=== PATIENT | female | born 1930 | race Caucasian/White ===

== ENCOUNTER 2017-03-01 07:23 | Observation (INO) | payer MEDICARE, BC ==
[2017-03-01] MEDS ORDERED: Metoclopramide IV* 5 MG/ML 2 ML VIAL IV ONE (07:46)
[2017-03-01] MEDS ORDERED: Morphine INJ* 2 MG/ML 1 ML SYRINGE IV ONE (07:46)
[2017-03-01] MEDS ORDERED: diPHENhydraMINE IV* 50 MG/ML 1 ml VIAL (BENADRYL) IV ONE (07:46)
[2017-03-01 09:00] LABS: Hematocrit 35 % (35-47); Hemoglobin 11.5 g/dl (12.0-16.0); Mean Corpuscular HGB Conc 33 g/dl (31-36); Mean Corpuscular Hemoglobin 31 pg (27-31); Mean Corpuscular Volume 95 fL (80-97); Mean Platelet Volume 8 um3 (7.4-10.4); Red Blood Count 3.68 10^6/ul (4.0-5.4); Red Cell Distribution Width 13 % (10.5-15); White Blood Count 5.2 10^3/ul (3.5-10.8)
[2017-03-01] MEDS ORDERED: Morphine INJ* 4 MG/ML 1 ML SYRINGE IV ONE (09:10)
[2017-03-01 09:16] LABS: Albumin 3.9 g/dL (3.2-5.2); BUN/Creatinine Ratio 18.8 (8-20); Calcium 9.4 mg/dL (8.6-10.3); EGFR African American 87.5 (>60); Globulin 2.8 g/dL (2-4); Potassium 3.7 mmol/L (3.5-5.0); Total Bilirubin 0.5 mg/dL (0.2-1.0); Total Protein 6.7 g/dL (6.4-8.9)
[2017-03-01] MEDS ORDERED: fentaNYL* 50 MCG/ML 2 ML VIAL (100 MCG VIAL) IV SLOW PU ONE (09:52)
[2017-03-01] MEDS ORDERED: predniSONE TAB* 20 MG PO ONE (09:57)
[2017-03-01] MEDS ORDERED: Iodixanol* (CONTRAST) 320 MG/ML 100 ML SDV IV ONE (10:41)
--- NOTE | 2017-03-01 12:16 | RAD ---
INDICATION: 86-year-old with headaches. COMPARISON: CTA head February 28, 2017; CTA head and neck October 06, 2014 TECHNIQUE: Axial source images were acquired with coronal and sagittal reconstructions. CT angiographic technique was utilized with injection of 80 mL Visipaque 320. FINDINGS: Aortic arch: There are moderate arthritic changes of the arch and the great vessels arising from the arch. Similar findings were present previously. Right carotid: The internal carotid artery, carotid bifurcation, extracranial portions of the internal carotid artery are patent. There is mild atherosclerotic change at the bulb similar to that described previously. Left carotid:The internal carotid artery, carotid bifurcation, extracranial portions of the internal carotid artery are patent. There is mild atherosclerotic change of the bulb similar to that described previously. Right vertebral: The right vertebral artery is patent. Left vertebral: The left vertebral artery not patent at its origin and is only faintly visualized at the skull base. Basilar artery: The visualized basilar artery appears normal. Source images show no evidence of mass or adenopathy within the neck. There are no focal parenchymal abnormalities or abnormal areas of enhancement. IMPRESSION: 1. Mild atherosclerotic changes of the aortic bifurcations bilaterally. No evidence of a hemodynamically significant stenosis. 2. The CT is only able to discern flow within the vertebral artery beginning at the skull base. CPT II Codes: 3100F PQRS
[2017-03-01 13:24] LABS: Erythrocyte Sed Rate 18 mm/Hr (0-40)
[2017-03-01 14:08] LABS: Urine Bilirubin Negative (Negative); Urine Glucose Negative (Negative); Urine Nitrite Negative (Negative)
[2017-03-01] MEDS ORDERED: Polyethylene Glycol 3350* 17 GM PACKET PO PRN (14:30)
[2017-03-01] MEDS ORDERED: Acetaminophen TAB* 325 MG PO PRN (14:33)
[2017-03-01] MEDS ORDERED: NS 0.9% 1000 ML* 1,000 ML IV SCH (14:45)
--- NOTE | 2017-03-01 15:26 | RAD ---
Indication: Intermittent headache for 3 days with severe worsening today. Comparison: February 28, 2017 CT angiogram of the head Technique: Blitsya 1.5 Christen [id number] with GEM suite. MRI brain without contrast. Report: Diffusion series is negative for acute or subacute ischemia. Small focus of hemosiderin deposition at the RIGHT superior parietal lobule may reflect previous nonspecific axial hemorrhage or more likely a small cavernous angioma. There is mild prominence of the cerebral sulci and cerebellar fissures reflecting atrophy. Unremarkable ventricles and basal cisterns. There is increased T2 FLAIR signal in the periventricular and subcortical white matter most consistent with chronic small vessel ischemic disease. Normal variant mildly prominent perivascular spaces at the basal ganglia. No intra or extra-axial lesion associated with mass effect evident. Preserved major intracranial flow-voids. Unremarkable orbital contents. No suspicious calvarial or skull base lesion evident. Grossly clear paranasal sinuses. Minimal mastoid effusions. IMPRESSION: 1. Mild involutional change and stigmata of probable chronic small vessel ischemic disease. 2. Small focus of hemosiderin deposition at the RIGHT superior parietal lobule may reflect previous nonspecific axial hemorrhage or more likely a small cavernous angioma. 3. No acute intracranial process evident.
--- NOTE | 2017-03-01 18:08 | ED ---
Jumana Murray Matthew, scribed for Keanu Frankel MD on 03/01/17 at 0806 . Headache - HPI Summary HPI Summary: An 86 y/o female presents to the ED with a frontal headache since 2 days ago. Currently the pain is rated 10/10 in severity. Associated symptoms currently include weakness of the legs bilaterally, fatigue, and photophobia. She denies blurry vision. Two days ago, she woke-up in the middle of the night with a severe headache that lasted for 30 minutes then alleviated. She then woke-up later in the morning, stated that she couldn't feel her legs and fell. As a result, her daughter took her to [facility] in [place], where they did a CT scan yesterday, which returned normal. She also had a moderate constant headache throughout the day yesterday. She was told to present to the ED if she continued to have a headache today. The patient had a CVA (Hemorrhage) in 1995. She takes an aspirin daily and is taking Plavix. She has a Hx of headaches. - History Of Current Complaint Chief Complaint: EDHeadache Stated Complaint: HEADACHE Time Seen by Provider: 03/01/17 07:40 Hx Obtained From: Patient Onset/Duration: Started days ago, Still Present Initially Headache Was: Moderate Currently Pain Is: Current Pain Scale(0-10)= - 10 Timing: Constant Location of Headache: Frontal Aggravating Factor: Bright Lights Allevating Factors: Nothing Associated Signs And Symptoms: Other (Noted In Comments) - photophobia, fatigue , bilateral leg weakness - Allergies/Home Medications Allergies/Adverse Reactions: Allergies Allergy/AdvReac Type Severity Reaction Status Date / Time Morphine Allergy GI Upset Verified 03/04/13 22:20 Warfarin [From Coumadin] Allergy Unknown Verified 10/06/14 13:49 Reaction Details Home Medications: Home Medications Acetaminophen [Acetaminophen ER] 1,300 mg PO BID PRN 03/01/17 [History Confirmed 03/01/17] Cholecalciferol [Vitamin D] 1,000 unit PO DAILY 03/01/17 [History Confirmed ] Ipratropium Eden (Nasal) [Ipratropium Eden] 0.06 % BOTH NARES TID PRN [History Confirmed 03/01/17] Isosorbide Mononitrate ER TAB* [Imdur ER TAB*] 30 mg PO BEDTIME 03/01/17 [ History Confirmed 03/01/17] Magnesium Oxide [Magnesium] 500 mg PO DAILY 03/01/17 [History Confirmed 03/01/17 ] Metoprolol Succinate XL TAB* [Toprol XL TAB*] 25 mg PO DAILY 03/01/17 [History Confirmed 03/01/17] Multiple Vitamins W/ Minerals [Eye Vitamins & Minerals] 1 tab PO BID 03/01/17 [ History Confirmed 03/01/17] amLODIPine TAB* [Norvasc 5 mg TAB*] 2.5 mg PO QPM 03/01/17 [History Confirmed ] PMH/Surg Hx/FS Hx/Imm Hx Endocrine/Hematology History: Reports: Hx Thyroid Disease Denies: Hx Diabetes Cardiovascular History: Reports: Hx Angina, Hx Coronary Artery Disease, Hx Hypercholesterolemia, Hx Hypertension, Hx Myocardial Infarction - DE x2 1995 Denies: Hx Congestive Heart Failure, Hx Valvular Heart Disease Comment Only: Other Cardiovascular Problems/Disorders - 2 stents Respiratory History: Reports: Other Respiratory Problems/Disorders - seasonal ALLERGIES, MED'S MADE HER DIZZY SO SHE DOESNT TAKE THEM Denies: Hx Asthma, Hx Chronic Obstructive Pulmonary Disease (COPD) GI History: Reports: Hx Gastroesophageal Reflux Disease, Hx Obstructive Bowel - with colon resection History: Denies: Hx Renal Disease Musculoskeletal History: Reports: Hx Arthritis, Other Musculoskeletal History - Bilat hip replacement Sensory History: Reports: Hx Contacts or Glasses, Hx Hearing Problem - left hearing aids at home Opthamlomology History: Reports: Hx Contacts or Glasses Psychiatric History: Reports: Hx Anxiety, Hx Depression - Cancer History Hx Chemotherapy: No Hx Radiation Therapy: No - Surgical History Surgery Procedure, Year, and Place: CARDIAC CATH WITH STENTS, BILATERAL HIP REPLACEMENT, colon resection Hx Anesthesia Reactions: No - Immunization History Date of Tetanus Vaccine: up to date Date of Influenza Vaccine: 2014 Infectious Disease History: No Infectious Disease History: Denies: Traveled Outside the [place] in Last 30 Days - Family History Known Family History: Positive: Cardiac Disease Family History: FHx of breast CA - Social History Alcohol Use: Rare Substance Use Type: Reports: None Hx Tobacco Use: Yes - QUIT 1995 Smoking Status (MU): Former Smoker Type: Cigarettes Have You Smoked in the Last Year: No Review of Systems Positive: Fatigue Positive: Photophobia. Negative: Blurred Vision ENT: Negative Cardiovascular: Negative Respiratory: Negative Gastrointestinal: Negative Genitourinary: Negative Musculoskeletal: Negative Skin: Negative Positive: Weakness - legs bilaterally Psychological: Normal All Other Systems Reviewed And Are Negative: Yes Physical Exam - Summary Physical Exam Summary: VITAL SIGNS: Reviewed. GENERAL: Patient is a well developed and nourished female who is lying comfortable in the stretcher. Patient is not in any acute respiratory distress. HEAD AND FACE: No signs of trauma. No ecchymosis, hematomas or skull depressions. No sinus tenderness. Positive tenderness in the left side of the tmeporal area. EYES: PERRLA, EOMI x 2, No injected conjunctiva, no nystagmus. No photophobia. EARS: Hearing grossly intact. Ear canals and tympanic membranes are within normal limits. MOUTH: Oropharynx within normal limits. NECK: Supple, trachea is midline, no adenopathy, no JVD, no carotid bruit, no c- spine tenderness, neck with full ROM. No meningeal signs, no Kernig's or brudzinskis signs. CHEST: Symmetric, no tenderness at palpation LUNGS: Clear to auscultation bilaterally. No wheezing or crackles. CVS: Regular rate and rhythm, S1 and S2 present, no murmurs or gallops appreciated. ABDOMEN: Soft, non-tender. No signs of distention. No rebound no guarding, and no masses palpated. Bowel sounds are normal. EXTREMITIES: FROM in all major joints, no edema, no cyanosis or clubbing. NEURO: Alert and oriented x 3. No acute neurological deficits. Speech is normal and follows commands. SKIN: Dry and warm Triage Information Reviewed: Yes Vital Signs On Initial Exam: Initial Vitals Temp Pulse Resp BP Pulse Ox 97.0 F 60 14 163/69 96 03/01/17 07:30 03/01/17 07:30 03/01/17 07:30 03/01/17 07:30 03/01/17 07:30 Vital Signs Reviewed: Yes - Chana Coma Scale Coma Scale Total: 15 Diagnostics - Vital Signs Vital Signs Temp Pulse Resp BP Pulse Ox 03/01/17 07:30 97.0 F 58 17 163/69 96 - Laboratory Lab Results: Lab Results 03/01/17 03/01/17 03/01/17 Range/Units 08:50 08:50 08:50 WBC 5.2 (3.5-10.8) 10^3/ul RBC 3.68 L (4.0-5.4) 10^6/ul Hgb 11.5 L (12.0-16.0) g/dl Hct 35 (35-47) % MCV 95 (80-97) fL MCH 31 (27-31) pg MCHC 33 (31-36) g/dl RDW 13 (10.5-15) % Plt Count 209 (150-450) 10^3/ul MPV 8 (7.4-10.4) um3 Neut % (Auto) 69.5 (38-83) % Lymph % (Auto) 18.0 L (25-47) % Hartley % (Auto) 8.6 (1-9) % Eos % (Auto) 1.1 (0-6) % Baso % (Auto) 2.8 H (0-2) % Absolute Neuts (auto) 3.6 (1.5-7.7) 10^3/ul Absolute Lymphs (auto) 0.9 L (1.0-4.8) 10^3/ul Absolute Monos (auto) 0.4 (0-0.8) 10^3/ul Absolute Eos (auto) 0.1 (0-0.6) 10^3/ul Absolute Basos (auto) 0.1 (0-0.2) 10^3/ul Absolute Nucleated RBC 0 10^3/ul Nucleated RBC % 0.1 ESR Pending APTT 24.1 L (26.0-36.3) seconds Carbon Monoxide Screen (<3.5) % Sodium 132 L (133-145) mmol/L Potassium 3.7 (3.5-5.0) mmol/L Chloride 100 L (101-111) mmol/L Carbon Dioxide 26 (22-32) mmol/L Anion Gap 6 (2-11) mmol/L BUN 15 (6-24) mg/dL Creatinine 0.80 (0.51-0.95) mg/dL Est GFR ( Amer) 87.5 (>60) Est GFR (Non-Af Amer) 68.0 (>60) BUN/Creatinine Ratio 18.8 (8-20) Glucose 118 H (70-100) mg/dL Lactic Acid (0.5-2.0) mmol/L Calcium 9.4 (8.6-10.3) mg/dL Total Bilirubin 0.50 (0.2-1.0) mg/dL AST 15 (13-39) U/L ALT 8 (7-52) U/L Alkaline Phosphatase 46 (34-104) U/L B-Natriuretic Peptide ( - 100) pg/mL Total Protein 6.7 (6.4-8.9) g/dL Albumin 3.9 (3.2-5.2) g/dL Globulin 2.8 (2-4) g/dL Albumin/Globulin Ratio 1.4 (1-3) 03/01/17 03/01/17 03/01/17 Range/Units 08:50 08:50 08:50 WBC (3.5-10.8) 10^3/ul RBC (4.0-5.4) 10^6/ul Hgb (12.0-16.0) g/dl Hct (35-47) % MCV (80-97) fL MCH (27-31) pg MCHC (31-36) g/dl RDW (10.5-15) % Plt Count (150-450) 10^3/ul MPV (7.4-10.4) um3 Neut % (Auto) (38-83) % Lymph % (Auto) (25-47) % Hartley % (Auto) (1-9) % Eos % (Auto) (0-6) % Baso % (Auto) (0-2) % Absolute Neuts (auto) (1.5-7.7) 10^3/ul Absolute Lymphs (auto) (1.0-4.8) 10^3/ul Absolute Monos (auto) (0-0.8) 10^3/ul Absolute Eos (auto) (0-0.6) 10^3/ul Absolute Basos (auto) (0-0.2) 10^3/ul Absolute Nucleated RBC 10^3/ul Nucleated RBC % ESR APTT (26.0-36.3) seconds Carbon Monoxide Screen <3.5 (<3.5) % Sodium (133-145) mmol/L Potassium (3.5-5.0) mmol/L Chloride (101-111) mmol/L Carbon Dioxide (22-32) mmol/L Anion Gap (2-11) mmol/L BUN (6-24) mg/dL Creatinine (0.51-0.95) mg/dL Est GFR ( Amer) (>60) Est GFR (Non-Af Amer) (>60) BUN/Creatinine Ratio (8-20) Glucose (70-100) mg/dL Lactic Acid 1.2 (0.5-2.0) mmol/L Calcium (8.6-10.3) mg/dL Total Bilirubin (0.2-1.0) mg/dL AST (13-39) U/L ALT (7-52) U/L Alkaline Phosphatase (34-104) U/L B-Natriuretic Peptide 141 H ( - 100) pg/mL Total Protein (6.4-8.9) g/dL Albumin (3.2-5.2) g/dL Globulin (2-4) g/dL Albumin/Globulin Ratio (1-3) Result Diagrams: 03/01/17 08:50 03/01/17 08:50 Lab Statement: Any lab studies that have been ordered have been reviewed, and results considered in the medical decision making process. - CT CTA Neck CT Interpretation: No Acute Changes - 1. Mild atherosclerotic changes of the aortic bifurcations bilaterally. No evidence of a hemodynamically significant stenosis. 2. The CT is only able to discern flow within the vertebral artery beginning at the skull base. CT Interpretation Completed By: Radiologist - EKG 07:31 Cardiac Rate: NL - 60 bpm EKG Rhythm: Sinus Rhythm EKG Interpretation: No ST elevation Headache Course/Dx - Course Assessment/Plan: An 86 y/o female presents to the ED with a frontal headache since 2 days ago. Currently the pain is rated 10/10 in severity. Associated symptoms currently include weakness of the legs bilaterally, fatigue, and photophobia. She denies blurry vision. Two days ago, she woke-up in the middle of the night with a severe headache that lasted for 30 minutes then alleviated. She then woke-up later in the morning, stated that she couldn't feel her legs and fell. As a result, her daughter took her to [facility] in [place], where they did a CT scan yesterday, which returned normal. She also had a moderate constant headache throughout the day yesterday. She was told to present to the ED if she continued to have a headache today. The patient had a CVA (Hemorrhage) in 1995. She takes an aspirin daily and is taking Plavix. She has a Hx of headaches. Blood work shows decreased in H&H which is 11.5. Sodium of 132, glucose 118, and urinalysis negative for UTI. In the ED course, the patient was given IV fluids, Benadryl, and Reglan for the headache and nausea. The patient had a CTA of the brain yesterday order by the PCP, which showed no acute abnormalities. At this point, I discussed my findings with Dr. Mendoza who recommend a CTA of the neck. CTA neck shows mild atherosclerotic changes of the aortic bifurcations bilaterally. No evidence of a hemodynamically significant stenosis. 2. The CT is only able to discern flow within the vertebral artery beginning at the skull base. While the patient was waiting for these tests to be completed, the patient called me back into the room and stated that she had an episode of facial droop and confusion this morning. It was witnessed by the daughter and lasted for approximately an hour. Therefore, Dr. Mendoza requested to do an MRI of the brain and he will follow-up with the results. I discussed the case with Dr. Mendoza who recommended a Brain MRI to r/ o TIA. The patients headache has improved and right now is 4/10. I have no suspicion for meningitis, because the patient does not have fever, neck pain, or photophobia. I also have low suspicion subarachnoid hemorrhage since the patients CTA yesterday was negative. Discussed the case with Dr. Guzman who accepted the patient for admission. The patient is hemodynamically stable and A& Ox3. - Diagnoses Differential Diagnosis/HQI/PQRI: CVA, TIA, Subdural Hematoma, Migraine, Sinus Headache, Subarachnoid Hemorrhage, Temporal Arteritis, Viral Syndrome Provider Diagnoses: Headache, TIA (transient ischemic attack) - Physician Notifications Discussed Care Of Patient With: Dr. Jackson (Neurology) at 10:09 -- Notified of patient's history and he recommends CTA of the neck. Dr. Guzman (Hospitalist) at 12:22 -- Notified of patient's history and will admit the patient. Discharge - Discharge Plan Condition: Stable Disposition: ADMITTED TO [facility] documentation as recorded by the Jumana harmon Matthew accurately reflects the service I personally performed and the decisions made by me, Keanu Frankel MD.
--- NOTE | 2017-03-01 20:39 | HP ---
HISTORY AND PHYSICAL: DATE OF ADMISSION: 03/01/17 PRIMARY CARE PROVIDER: Dr. Sofy Mejía. ATTENDING PHYSICIAN: Dr. Dmitriy Guzman * (dictated by Roberta Noble NP). CHIEF COMPLAINT: Severe left-sided headache with associated nausea, weakness, and dizziness. HISTORY OF PRESENT ILLNESS: Ms. 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 The patient states that she developed a headache 2 days ago that was frontal on both sides in nature. She was seen at her primary care office and was ordered a head CTA yesterday. It showed no evidence for an acute intracranial abnormality. There were atrophy and findings most consistent with moderate chronic small vessel ischemic changes and no evidence of an aneurysm. The patient states that the headache had improved and she was at home. It is also to note that the patient reports 2 nights ago, when she got up, she was not feeling well. When she went to sit back down on her bed, she slid to the floor. She denied hitting her head at that time. The patient states that her headache had initially resolved yesterday, but then when she woke up again this morning, she had a headache that was worse. She was able to get to the bathroom and sit on the toilet when she just felt that the headache was excruciating and she noticed that she was weak, nauseous, and dizzy, and she pressed her Life Alert and EMS presented to her house to bring her here. According to the patient's family, she may have had a slight left facial droop. The patient states that she may have had weakness greater on the left than on the right also. The patient was given nitroglycerin by EMS and this helped her hypertensive blood pressure come down, in addition to helped her headache improve. While in the emergency room, the patient's blood pressures improved from the 160s to 180s systolic to the 130s. She received fentanyl for her headache in addition to prednisone, Benadryl, and Reglan. The patient also had an EKG showing normal sinus rhythm with a rate of 60. She had a urinalysis that was within normal limits. She had labs that were significant for slight hyponatremia with a sodium of 132. The patient had a carbon monoxide screening that was less than 3.5. She also underwent neck CTA showing mild atherosclerotic changes of the aortic bifurcation bilaterally, but no evidence of hemodynamically significant stenosis. The patient states that her headache has mostly resolved during her time in the emergency room. Hospitalists were asked to evaluate the patient for admission. The patient denies fever, chills, chest pain, shortness of breath. She does report a cough with some phlegm, but has had issues with phlegm production since she was intubated during her hemorrhagic stroke. She also reports some blurry vision in her left eye. She denies any urinary symptoms. PAST MEDICAL HISTORY: 1. Hypertension. 2. Hyperlipidemia. 3. Coronary artery disease. 4. Myocardial infarction x2. 5. Hypothyroidism. 6. Depression. 7. GERD. 8. Arthritis. 9. Hemorrhagic cerebrovascular accident in 1995 while on warfarin. PAST SURGICAL HISTORY: 1. Status post cardiac catheterization with 2 stent placements. 2. Status post bilateral total hip arthroplasties. 3. Status post partial bowel resection. 4. Status post cataract extraction. HOME MEDICATIONS: Include: 1. Sertraline 50 mg oral daily. 2. MiraLAX 17 g oral daily as needed for constipation. 3. Omeprazole 20 mg oral daily. 4. Aspirin 81 mg oral daily. 5. Fish oil 1000 mg oral daily. 6. Metoprolol succinate 25 mg oral daily. 7. Levothyroxine 75 mcg oral daily. 8. Plavix 75 mg oral daily. 9. Nitroglycerin 0.4 mg sublingual every 5 minutes as needed for angina. 10. Vitamin D 1000 units oral daily. 11. Atorvastatin 10 mg oral daily. 12. Magnesium 500 mg oral daily. 13. Vitamin B12 injection 1000 mcg intramuscular monthly. 14. Acetaminophen 1300 mg oral twice daily as needed for pain. 15. Isosorbide mononitrate ER 30 mg oral daily at bedtime. 16. Ipratropium bromide 0.06% to both nares 3 times daily as needed for congestion. 17. Amlodipine 2.5 mg oral every evening. 18. Multivitamin 1 tablet oral daily. ALLERGIES: MORPHINE and WARFARIN. FAMILY HISTORY: The patient's parents, brother, and son have a history of heart disease. She denies any family history of diabetes mellitus. The patient 's father had a history of bone cancer and she had a sister and a niece with a history of breast cancer. SOCIAL HISTORY: The patient is a former smoker. She quit smoking in 1995. Prior to that, she smoked 1 pack a day for 30 to 40 years. The patient occasionally drinks alcoholic beverages. She denies recreational drug use. The patient's son and [id number], Gil and Jyothi Amin, will be her surrogate decision makers in the event she is unable to make decisions for herself. REVIEW OF SYSTEMS: I performed a 14-point review of systems. All the pertinent positives and negatives are mentioned in the history of present illness. The remaining review of systems is negative. PHYSICAL EXAMINATION GENERAL APPEARANCE: The patient is alert, pleasant, appears to be in no acute distress. VITAL SIGNS: Temperature 97.0, heart rate 58, respiratory rate 18, O2 sat 99% on room air, blood pressure 130/63. HEENT: Normocephalic, atraumatic. Pupils are equal and reactive to light. Extraocular movements intact. RESPIRATORY: There is no accessory muscle use and the lungs are clear to auscultation bilaterally. CARDIOVASCULAR: Regular rate and rhythm. S1, S2 present. There are no murmurs , rubs, or gallops heard. ABDOMEN: Soft, nontender, nondistended. Bowel sounds x4. EXTREMITIES: There is no lower extremity edema. DP and PT pulses are 2+ and symmetric. MUSCULOSKELETAL: There is no clubbing or cyanosis noted. The patient exhibits good strength in all extremities. NEUROLOGICAL: The patient is alert and oriented x4. Cranial nerves II through XII are grossly intact. The patient is able to perform [id number] bilaterally without difficulty. She is able to perform heel from ankle to knee bilaterally without difficulty. The patient's smile was symmetric. Her tongue is midline. She has a slight deepening in the crease on the left side of her face when compared to the right side. Per the patient's family, this may be her baseline. PSYCHOLOGICAL: The patient is calm and cooperative. SKIN: There are no rashes or abnormalities seen. DIAGNOSTIC STUDIES/LAB DATA: Sodium 132, potassium 3.7, chloride 100, CO2 26, BUN 15, creatinine 0.80, glucose 118. White blood cell count 5.2, hemoglobin 11.5, hematocrit 35, and platelet count 209. Urinalysis negative. Carbon monoxide screening less than 3.5. BNP 141. EKG shows normal sinus rhythm with a rate of 60. Neck CTA from today. Radiologist's impression: Mild atherosclerotic changes of the aortic bifurcation bilateral. No evidence of a hemodynamically significant stenosis. The CT is only able to discern flow within the vertebral artery beginning at the skull base. IMPRESSION: Ms. Amin is an 86-year-old female with past medical history significant for hypertension, hyperlipidemia, coronary artery disease, and history of hemorrhagic cerebrovascular accident, who presents to the emergency room with concerns of severe headache with associated nausea, weakness, and dizziness. She will be admitted under observation for headache and rule out transient ischemic attack. ASSESSMENT AND PLAN: 1. Headache with associated weakness, dizziness, and nausea: Per the patient' s family, she may have also had a slight left facial droop. There was no focal weakness noted. The patient will have an MRI. After the MRI, I will touch base with Neurology for a consultation. We will check fasting lipids in the morning. The patient will have neurological checks every 4 hours. We will add a hemoglobin A1c to her labs. We will have Physical Therapy evaluate her due to her complaints of generalized weakness. For now, we will hold her amlodipine to allow permissive hypertension. 2. History of coronary artery disease: The patient will be continued on her home aspirin, beta radha, statin, and Imdur. 3. History of cerebrovascular accident: The patient will be continued on her Plavix, aspirin, and statin. 4. Hyponatremia: We will give the patient some gentle IV hydration overnight and recheck in the morning. 5. Hypothyroidism: The patient will be continued on her home levothyroxine. 6. Depression: The patient will be continued on her home sertraline. 7. Hypertension: For now, the patient will be continued on her beta radha, we will hold her amlodipine to allow for permissive hypertension. 8. Hyperlipidemia: The patient will be continued on her statin. We will check fasting lipids in the morning. 9. Gastroesophageal reflux disease: The patient will be continued on her home omeprazole. 10. Arthritis: The patient will be continued on atenolol as needed. 11. Fluids, electrolytes, and nutrition: The patient will be on heart-healthy diet. 12. Code status: Do not resuscitate. 13. DVT prophylaxis: The patient is high risk and will be on subcu heparin. 14. Disposition: Observation for headache, rule out transient ischemic attack. TIME SPENT: Time for this admission was 60 minutes and 35 minutes was spent face- to-face with the patient and family discussing medications, past medical history, and the events leading up to her arrival today and performing a physical examination. The case has been reviewed with the attending, Dr. Gzuman, who agrees with the plan of care. Reviewed by MYESHA DAVIS 03/04/17 1605 CC: Dr. Sofy Mejía * [id number]/[facility] #: [id number] MTDGeorge
[2017-03-01] MEDS ORDERED: Isosorbide Mononitrate ER TAB* 30 MG PO SCH (21:00)
[2017-03-01] MEDS: Heparin VIAL(*) 5000 UNITS/ML VIAL (FIVE THOUSAND) SUBCUT SCH (21:13)
[2017-03-02 05:12] LABS: BUN/Creatinine Ratio 21.8 (8-20); Calcium 8.6 mg/dL (8.6-10.3); EGFR African American 90.1 (>60); HDL Cholesterol 45.3 mg/dL; Potassium 4.5 mmol/L (3.5-5.0)
[2017-03-02] MEDS: Heparin VIAL(*) 5000 UNITS/ML VIAL (FIVE THOUSAND) SUBCUT SCH ×2 (05:36→13:14)
[2017-03-02] MEDS ORDERED: Levothyroxine TAB* 75 MCG TAB PO SCH (06:00)
[2017-03-02] MEDS ORDERED: Atorvastatin* 10 MG TAB PO SCH (09:00)
[2017-03-02] MEDS ORDERED: Aspirin EC Low Dose* 81 MG TAB.EC PO SCH (09:00)
[2017-03-02] MEDS ORDERED: Sertraline* 50 MG TAB PO SCH (09:00)
[2017-03-02] MEDS ORDERED: Clopidogrel TAB* 75 MG PO SCH (09:00)
[2017-03-02] MEDS ORDERED: CMCS:Pantoprazole TAB (NF) 40 MG TAB PO SCH (09:00)
[2017-03-02] MEDS ORDERED: Metoprolol Succinate XL TAB* 25 MG PO SCH (09:00)
[2017-03-02 12:47] VITALS: BP 114/45
--- NOTE | 2017-03-02 14:09 | PN ---
Subjective Date of Service: 03/02/17 Interval History: Ms. Amin states that she is feeling much better today. She had no headache overnight. She denies weakness, chest pain, SOB, nausea, or abdominal pain. Objective Active Medications: Acetaminophen (Tylenol Tab*) 650 mg PO Q4H PRN Aspirin (Aspirin Ec Low Dose*) 81 mg PO DAILY [facility] Atorvastatin Calcium (Lipitor*) 10 mg PO DAILY [facility] Clopidogrel Bisulfate (Plavix Tab*) 75 mg PO DAILY [facility] Heparin Sodium (Porcine) (Heparin Vial(*)) 5,000 units SUBCUT Q8HR [facility] Isosorbide Mononitrate (Imdur Er Tab*) 30 mg PO BEDTIME [facility] Levothyroxine Sodium (Synthroid Tab*) 75 mcg PO 0600 [facility] Metoprolol Succinate (Toprol Xl Tab*) 25 mg PO DAILY [facility] Pantoprazole Sodium (Protonix Tab (Nf)) 40 mg PO DAILY [facility] Polyethylene Glycol/Electrolytes (Miralax*) 17 gm PO DAILY PRN Sertraline HCl (Zoloft*) 50 mg PO DAILY [facility] Vital Signs 03/01/17 03/01/17 03/01/17 16:35 19:38 20:00 Temperature 98.5 F 98.7 F Pulse Rate 58 70 Respiratory 18 20 20 Rate Blood Pressure 139/53 116/56 (mmHg) O2 Sat by Pulse 97 94 Oximetry 03/01/17 03/02/17 03/02/17 23:53 04:01 07:50 Temperature 98.9 F 97.7 F 97.9 F Pulse Rate 68 70 94 Respiratory 16 16 16 Rate Blood Pressure 121/56 170/79 129/69 (mmHg) O2 Sat by Pulse 93 90 97 Oximetry 03/02/17 11:26 Temperature 98.5 F Pulse Rate 68 Respiratory 16 Rate Blood Pressure 114/45 (mmHg) O2 Sat by Pulse 94 Oximetry Oxygen Devices in Use Now: None Appearance: Elderly female lying in bed in NAD Eyes: No Scleral Icterus Ears/Nose/Mouth/Throat: Mucous Membranes Moist Respiratory: Symmetrical Chest Expansion and Respiratory Effort, Clear to Auscultation Cardiovascular: NL Sounds; No Murmurs; No JVD, No Edema Abdominal: NL Sounds; No Tenderness; No Distention Extremities: No Edema Skin: No Rash or Ulcers Neurological: Alert and Oriented x 3, NL Muscle Strength and Tone Nutrition: Taking PO's Result Diagrams: 03/01/17 08:50 03/02/17 04:36 Additional Lab and Data: Lab Results 03/01/17 03/01/17 03/01/17 Range/Units 08:50 08:50 08:50 WBC 5.2 (3.5-10.8) 10^3/ul RBC 3.68 L (4.0-5.4) 10^6/ul Hgb 11.5 L (12.0-16.0) g/dl Hct 35 (35-47) % MCV 95 (80-97) fL MCH 31 (27-31) pg MCHC 33 (31-36) g/dl RDW 13 (10.5-15) % Plt Count 209 (150-450) 10^3/ul MPV 8 (7.4-10.4) um3 Neut % (Auto) 69.5 (38-83) % Lymph % (Auto) 18.0 L (25-47) % [place] % (Auto) 8.6 (1-9) % Eos % (Auto) 1.1 (0-6) % Baso % (Auto) 2.8 H (0-2) % Absolute Neuts (auto) 3.6 (1.5-7.7) 10^3/ul Absolute Lymphs (auto) 0.9 L (1.0-4.8) 10^3/ul Absolute Monos (auto) 0.4 (0-0.8) 10^3/ul Absolute Eos (auto) 0.1 (0-0.6) 10^3/ul Absolute Basos (auto) 0.1 (0-0.2) 10^3/ul Absolute Nucleated RBC 0 10^3/ul Nucleated RBC % 0.1 ESR Pending APTT 24.1 L (26.0-36.3) seconds Carbon Monoxide Screen (<3.5) % Sodium 132 L (133-145) mmol/L Potassium 3.7 (3.5-5.0) mmol/L Chloride 100 L (101-111) mmol/L Carbon Dioxide 26 (22-32) mmol/L Anion Gap 6 (2-11) mmol/L BUN 15 (6-24) mg/dL Creatinine 0.80 (0.51-0.95) mg/dL Est GFR ( Amer) 87.5 (>60) Est GFR (Non-Af Amer) 68.0 (>60) BUN/Creatinine Ratio 18.8 (8-20) Glucose 118 H (70-100) mg/dL Lactic Acid (0.5-2.0) mmol/L Calcium 9.4 (8.6-10.3) mg/dL Total Bilirubin 0.50 (0.2-1.0) mg/dL AST 15 (13-39) U/L ALT 8 (7-52) U/L Alkaline Phosphatase 46 (34-104) U/L B-Natriuretic Peptide ( - 100) pg/mL Total Protein 6.7 (6.4-8.9) g/dL Albumin 3.9 (3.2-5.2) g/dL Globulin 2.8 (2-4) g/dL Albumin/Globulin Ratio 1.4 (1-3) 03/01/17 03/01/17 03/01/17 Range/Units 08:50 08:50 08:50 WBC (3.5-10.8) 10^3/ul RBC (4.0-5.4) 10^6/ul Hgb (12.0-16.0) g/dl Hct (35-47) % MCV (80-97) fL MCH (27-31) pg MCHC (31-36) g/dl RDW (10.5-15) % Plt Count (150-450) 10^3/ul MPV (7.4-10.4) um3 Neut % (Auto) (38-83) % Lymph % (Auto) (25-47) % [place] % (Auto) (1-9) % Eos % (Auto) (0-6) % Baso % (Auto) (0-2) % Absolute Neuts (auto) (1.5-7.7) 10^3/ul Absolute Lymphs (auto) (1.0-4.8) 10^3/ul Absolute Monos (auto) (0-0.8) 10^3/ul Absolute Eos (auto) (0-0.6) 10^3/ul Absolute Basos (auto) (0-0.2) 10^3/ul Absolute Nucleated RBC 10^3/ul Nucleated RBC % ESR APTT (26.0-36.3) seconds Carbon Monoxide Screen <3.5 (<3.5) % Sodium (133-145) mmol/L Potassium (3.5-5.0) mmol/L Chloride (101-111) mmol/L Carbon Dioxide (22-32) mmol/L Anion Gap (2-11) mmol/L BUN (6-24) mg/dL Creatinine (0.51-0.95) mg/dL Est GFR ( Amer) (>60) Est GFR (Non-Af Amer) (>60) BUN/Creatinine Ratio (8-20) Glucose (70-100) mg/dL Lactic Acid 1.2 (0.5-2.0) mmol/L Calcium (8.6-10.3) mg/dL Total Bilirubin (0.2-1.0) mg/dL AST (13-39) U/L ALT (7-52) U/L Alkaline Phosphatase (34-104) U/L B-Natriuretic Peptide 141 H ( - 100) pg/mL Total Protein (6.4-8.9) g/dL Albumin (3.2-5.2) g/dL Globulin (2-4) g/dL Albumin/Globulin Ratio (1-3) Assess/Plan/Problems-Billing Assessment: Ms. Amin is an 86 yo female with a PMH of hemorrhagic CVA, HTN, NV who was admitted on 03/01/17 with concern for new onset headache associated with weakness with concern for TIA vs CVA. - Patient Problems (1) Headache Comment: No headache overnight. No further weakness or question of neurological deficit. Patient's workup has been negative including a CT brain, CTA neck, and MRI brain. ESR is also negative which would speak against temporal arteritis. No etiology identified. Case reviewed with neurology over the phone, no further workup recommended. Of note, patient's BP was elevated with EMS to 200 systolically per patient report. ? if hypertension could be causing headache. However, her BP has been well controlled inpatient. Encouraged patient to check BP at home and review findings with Dr. Mejía. (2) CAD (coronary artery disease) Comment: Continue atorvastatin, aspirin, plavix. Continue isosorbide. (3) Depression Comment: Continue zoloft. (4) Hypertension Comment: BP well controlled. Continue amlodipine and metoprolol. (5) Hypothyroidism Comment: Continue levothyroxine. (6) DVT prophylaxis Comment: Heparin SQ. (7) DNR (do not resuscitate) Status and Disposition: OBV. Discharge to home.
--- NOTE | 2017-03-03 03:51 | DS ---
DISCHARGE SUMMARY: DATE OF ADMISSION: 03/01/17 DATE OF DISCHARGE: 03/02/17 PRIMARY CARE PHYSICIAN: Dr. Mejía. ATTENDING PHYSICIAN: Husam Weinstein MD* (dictation provided by Tiffanie Li NP ). PRIMARY DIAGNOSIS: Headache with associated nausea, weakness, and dizziness. SECONDARY DIAGNOSES: 1. Hypertension. 2. Hyperlipidemia. 3. Coronary artery disease. 4. Myocardial infarction x2. 5. Hypothyroidism. 6. Depression. 7. Gastroesophageal reflux disease. 8. Arthritis. 9. Hemorrhagic cerebrovascular accident in 1995 while on warfarin. PAST SURGICAL HISTORY: 1. Status post cardiac catheterization with 2 stent placements. 2. Status post bilateral total hip arthroplasties. 3. Status post partial bowel resection. 4. Status post cataract extraction. MEDICATIONS AT THE TIME OF DISCHARGE: Unchanged. They are: 1. Sertraline 50 mg oral daily. 2. MiraLAX 17 g oral daily as needed for constipation. 3. Omeprazole 20 mg oral daily. 4. Aspirin 81 mg oral daily. 5. Fish oil 1000 mg oral daily. 6. Metoprolol succinate 25 mg oral daily. 7. Levothyroxine 75 mcg oral daily. 8. Plavix 75 mg oral daily. 9. Nitroglycerin 0.4 mg sublingually q.5 minutes p.r.n. 10. Vitamin D 1000 units oral daily. 11. Atorvastatin 10 mg oral daily. 12. Magnesium 500 mg oral daily. 13. Vitamin B12 injections 1000 mcg intramuscularly monthly. 14. Tylenol 1300 mg oral twice daily as needed for pain. 15. Isosorbide mononitrate ER 30 mg oral daily at bedtime. 16. Ipratropium as needed for congestion. 17. Amlodipine 2.5 mg oral every evening. 18. Multivitamin 1 tablet oral daily. HOSPITAL COURSE: Ms. Amin is an 86-year-old female with the past medical history as outlined above who presented to the emergency room on 03/01/17 with concern for headache associated with nausea, weakness, and dizziness. Please see the dictated H and P from Roberta Norwood, for complete details. In brief, the patient had 2 episodes where she had awoken in the middle of the night with headache. During the first episode, she felt that both of her legs were paralysed and she was unable to move. Overall, she appears that she was completely incapacitated by the severity of the pain. This lasted for approximately a few hours. The following day she went to see her primary care physician, Dr. Mejía, and a CT of the brain was performed given her history of hemorrhagic CVA. No abnormality was noted on the CT of brain. The following night, early in the morning hours, she had another headache that was very severe. Again, she did not have the bilateral lower extremity weakness, but her family was concerned that perhaps she had some left- sided facial droop. When the EMS arrived, they did not note any facial droop. The patient herself did not note it herself, but based on her presentation with headache and question of associated neurological deficits she was admitted to the hospital for observation. During the hospitalization, Ms. Amin with head and neck CTA which was read as follows: "Mild atherosclerotic change of the aortic bifurcations bilaterally. No evidence of hemodynamically significant stenosis." The patient had a brain MRI which is read as follows: "Mild involutional change and stigmata of probable chronic small vessel ischemic disease. Small focus of hemosiderin deposition at the right superior parietal lobe may reflect previous nonspecific axial hemorrhage or more likely a small cavernous angioma. No acute intracranial process evident." The patient's laboratory values were unremarkable. Her ESR was only 18. Her cholesterol screen showed a total cholesterol of 137 and HDL 45.3. She has no evidence of a urinary tract infection. Her vital signs had been stable. There is no clear etiology identified for Ms. Amin's headache and question of possibly associated neurological symptoms. She has no evidence of TIA or CVA on the workup here. No evidence of temporal arteritis. The patient notes that her blood pressure was elevated to over 200 systolically via EMS. While she has been here in the hospital, her blood pressure has only been high a couple of times and this was not associated with any symptoms or headache. It is possible that her symptoms are related to high blood pressure or her blood pressure could have been high simply due to stress and pain. I have encouraged her to check her blood pressure at home. The patient does have a blood pressure cuff in the home. She should follow up with Dr. Mejía with these results to determine if her blood pressure medication should be adjusted. Based on the values here in the hospital, her blood pressure is well controlled. Ms. Amin is medically stable for discharge to home. She had no headache overnight while here with us and no neurological deficits. She should follow up with Dr. Mejía. DISPOSITION: Home. DIET: Low salt. ACTIVITY: As tolerated. FOLLOWUP PLANS: Please follow up with Dr. Mejía. The patient has been instructed to call for an appointment in the next 3 to 5 days. TIME SPENT: Approximately 60 minutes were spent on the discharge of this patient, more than half the time spent with the patient at the bedside reviewing the events leading up to this hospitalization, performing the physical examination, and reviewing the plan of care. TIFFANIE LI NP CC: Dr. Mejía* [id number]/[facility] #: [id number] MARGOT
== END 2017-03-02 15:45 | disposition home or self-care (01) ==
LOC: ED 07:23 → MEDTELE 13:03
PROVIDERS: ADMIT Hospitalist; ATTEND Internal Medicine
DX: R51 Headache (principal); R11.0 Nausea; R53.1 Weakness; R42 Dizziness and giddiness; I25.119 Atherosclerotic heart disease of native coronary artery with unspecified angina pectoris; I10 Essential (primary) hypertension; I25.2 Old myocardial infarction; E87.1 Hypo-osmolality and hyponatremia; E03.9 Hypothyroidism, unspecified; K21.9 Gastro-esophageal reflux disease without esophagitis; M19.90 Unspecified osteoarthritis, unspecified site; Z86.73 Personal history of transient ischemic attack (TIA), and cerebral infarction without residual deficits; Z79.899 Other long term (current) drug therapy; Z79.82 Long term (current) use of aspirin; Z88.5 Allergy status to narcotic agent; Z88.8 Allergy status to other drugs, medicaments and biological substances; Z87.891 Personal history of nicotine dependence; Z79.02 Long term (current) use of antithrombotics/antiplatelets; Z95.5 Presence of coronary angioplasty implant and graft
CPT/HCPCS: 36415; 70498; 70551; 80048; 80053; 80061; 81003; 82375; 83036; 83605; 83880; 85025; 85652; 85730; 93005; 96372; 96374; 96375; 99283; A9270-GY; G0378; G8978-GP-CI; G8979-GP-CI; G8980-GP-CI; J1200; J1644; J2270; J3010; J7512; Q9967

== ENCOUNTER 2017-03-02 17:02 | Emergency (ER) | payer MEDICARE, BC ==
--- NOTE | 2017-03-02 19:27 | ED ---
Headache - HPI Summary HPI Summary: 86F presents with headache acute onset today that last 2 hours. She was discharged from hospital an hour before headache occurred. She was admitted for this headache as r/o TIA yesterday. States only thing different about this headache is it happened in middle of day while the last couple have woke her out of her sleep. She states the headache was a frontal headache the past couple days but now is on left side of face. When it occurs she states she loss vision from the pain. She denies any problem with speech. She states the episodes make her feel weak. The headache is severe in intense and nothing makes it better. She also admits to nausea with the pain. Her blood pressure was checked during the incident and it was 190/70. She has a history of a brain bleed from Coumadin given from a previous [place]. She denies any history of headaches. She denies any chest pain or SOB. She currently takes plavix and ASA. - History Of Current Complaint Chief Complaint: EDHeadache Stated Complaint: HEADACHE Time Seen by Provider: 03/02/17 18:20 - Allergies/Home Medications Allergies/Adverse Reactions: Allergies Allergy/AdvReac Type Severity Reaction Status Date / Time Morphine Allergy GI Upset Verified 03/02/17 17:32 Warfarin [From Coumadin] Allergy Unknown Verified 03/02/17 17:32 Reaction Details PMH/Surg Hx/FS Hx/Imm Hx Endocrine/Hematology History: Reports: Hx Thyroid Disease Denies: Hx Diabetes Cardiovascular History: Reports: Hx Angina, Hx Coronary Artery Disease, Hx Hypercholesterolemia, Hx Hypertension, Hx Myocardial Infarction - [place] x2 1995 Denies: Hx Congestive Heart Failure, Hx Pacemaker/ICD, Hx Valvular Heart Disease Comment Only: Other Cardiovascular Problems/Disorders - 2 stents Respiratory History: Reports: Other Respiratory Problems/Disorders - seasonal ALLERGIES, MED'S MADE HER DIZZY SO SHE DOESNT TAKE THEM Denies: Hx Asthma, Hx Chronic Obstructive Pulmonary Disease (COPD) GI History: Reports: Hx Gastroesophageal Reflux Disease, Hx Obstructive Bowel - with colon resection History: Denies: Hx Renal Disease Musculoskeletal History: Reports: Hx Arthritis, Other Musculoskeletal History - Bilat hip replacement Sensory History: Reports: Hx Contacts or Glasses, Hx Hearing Problem - left hearing aids at home Denies: Hx Hearing Aid Opthamlomology History: Reports: Hx Contacts or Glasses Psychiatric History: Reports: Hx Anxiety, Hx Depression Denies: Hx Panic Disorder - Cancer History Hx Chemotherapy: No Hx Radiation Therapy: No - Surgical History Surgery Procedure, Year, and Place: CARDIAC CATH WITH STENTS, BILATERAL HIP REPLACEMENT, colon resection Hx Anesthesia Reactions: No - Immunization History Date of Tetanus Vaccine: up to date Date of Influenza Vaccine: 2014 Infectious Disease History: No Infectious Disease History: Denies: Traveled Outside the [place] in Last 30 Days - Family History Known Family History: Positive: Cardiac Disease Family History: FHx of breast CA - Social History Alcohol Use: Rare Substance Use Type: Reports: None Hx Tobacco Use: Yes - QUIT 1995 Smoking Status (MU): Former Smoker Type: Cigarettes Have You Smoked in the Last Year: No Review of Systems Negative: Fever Negative: Chest Pain Negative: Shortness Of Breath Positive: Nausea. Negative: Vomiting Positive: Headache All Other Systems Reviewed And Are Negative: Yes Physical Exam Triage Information Reviewed: Yes Vital Signs On Initial Exam: Initial Vitals Temp Pulse Resp BP Pulse Ox 98.4 F 62 24 177/66 93 03/02/17 17:30 03/02/17 17:30 03/02/17 17:30 03/02/17 17:30 03/02/17 17:30 Vital Signs Reviewed: Yes Appearance: Positive: Well-Appearing Skin: Positive: Warm, Dry Head/Face: Positive: Normal Head/Face Inspection Eyes: Positive: Normal, EOMI, VERONICA, Conjunctiva Clear ENT: Positive: Normal ENT inspection, Pharynx normal, TMs normal Respiratory/Lung Sounds: Positive: Clear to Auscultation, Breath Sounds Present Cardiovascular: Positive: Normal, RRR Neurological: Positive: Sensory/Motor Intact, Alert, Oriented to Person Place, Time, CN Intact II-III, Finger to Nose - Ranson Coma Scale Best Eye Response: 4 - Spontaneous Best Motor Response: 6 - Obeys Commands Best Verbal Response: 5 - Oriented Coma Scale Total: 15 Diagnostics - Vital Signs Vital Signs Temp Pulse Resp BP Pulse Ox 03/02/17 17:30 98.4 F 62 24 177/66 93 - Laboratory Lab Statement: Any lab studies that have been ordered have been reviewed, and results considered in the medical decision making process. - Additional Comments Diagnostic Additional Comments: MR venogram Indication: Continued headaches MRV of the head was performed utilizing 2-D mekj-or-[id number] technique. Multiple maximum intensity projection images were obtained. The sagittal sinus appears to BE widely patent. The straight sinus appears to BE patent. The transverse sinus appears to be patent bilaterally. IMPRESSION: No evidence of sagittal sinus or dural venous sinus thrombosis is noted. Headache Course/Dx - Course Course Of Treatment: 86F presents with reoccurance of severe headache one hour s /p being d/c from here for similiar headache. had full work up and no cause found for headache. states headache had previously not occurred during the day but this episode occurred at 3pm and lasted till 5pm. headache was also previously across frontal region but now was located on left side. normal neuro exam. dr ferris saw patient and recommended MRV brain and ESR for potential vascular cause. MRV normal. ESR normal. recommended prednisone for GCA. will prescribe prednisone 40 mg for [address] castillo if this would be the appropiate dosage to do. told to follow up with neurology. patient understands and agrees with plan - Diagnoses Differential Diagnosis/HQI/PQRI: TIA, Subdural Hematoma, Migraine, Temporal Arteritis Provider Diagnoses: Headache - Physician Notifications Discussed Care Of Patient With: dr ferris Time Discussed With Above Provider: 20:00 - saw patient in ED and recommended ESR and MCV brain for potential vascular cause Discharge - Discharge Plan Condition: Good Disposition: HOME Prescriptions: predniSONE TAB* [Deltasone TAB*] 40 mg PO DAILY #8 tab Patient Education Materials: Acute Headache (ED) Referrals: Sofy Mejía MD [Primary Care Provider] - Juan José Ferris MD [Medical Doctor] - Additional Instructions: Follow up with neurology within next 5 days Take prednisone 40mg (2 tablets) once a day starting tomorrow Return to ED if develop any new or worsening symptoms
--- NOTE | 2017-03-02 21:15 | RAD ---
Indication: Continued headaches MRV of the head was performed utilizing 2-D [id number] technique. Multiple maximum intensity projection images were obtained. The sagittal sinus appears to BE widely patent. The straight sinus appears to BE patent. The transverse sinus appears to be patent bilaterally. IMPRESSION: No evidence of sagittal sinus or dural venous sinus thrombosis is noted.
[2017-03-02] MEDS ORDERED: predniSONE TAB* 20 MG PO ONE (21:34)
[2017-03-02 21:57] VITALS: BP 151/88
--- NOTE | 2017-03-03 01:03 | CONS ---
NEUROLOGY CONSULTATION: DATE OF CONSULTATION: 03/02/17 REFERRING PROVIDER: NEIL Cohn CHIEF COMPLAINT: Headache. HISTORY OF PRESENT ILLNESS: Rachael Amin is an 86-year-old right-handed woman who developed a headache that started just this past Monday, 4 days ago. It was about 3 in the morning and she woke with a severe bifrontal headache. She tried to get up and felt like both legs were weak. It lasted about 3 hours and resolved. She was seen by her primary care provider at [facility] the following day. She had a CT of the brain I believe the following day and a CT angiogram on 02/28/17, essentially interpreted as normal. There was decreased contrast in the left vertebral artery suggesting proximal stenosis. There was no evidence of an aneurysm. She was fine the following day, but then on Monday morning, awoke at about 4: 30 by her report with again a severe headache. At this time, it was more left frontal orbital. It persisted for perhaps 4 or 5 hours at that time and led to admission to the hospital. She had a MRI of the brain on 03/01/17, interpreted as showing old hemosiderin deposits, but no evidence of masses or acute intracranial process. She had a CT angiogram of the neck interpreted as showing some atherosclerotic changes, but no dissections or other abnormalities. I reviewed the films, I generally agree. There is a small bump on the basilar artery posteriorly, but it is not at the apex and it is not clearly aneurysmal. Also, I cannot see the intracavernous carotid arteries on the studies either. There is no prior history of headaches prior to this week. The headaches resolve fairly quickly, but dull pressure sensation in her head. She has had a total of 3 headaches and was discharged home today. She got home at about 4 and within 10 minutes, she had a severe left retro-orbital and frontal headache. It lasted a little less than 2 hours and then resolved. During that time, she just holds her head and keeps her eyes closed. She has increased saliva production possibly in turn, but she is not really sure. Nobody has been able to observe whether or not she has any conjunctival injections. She has not been able to be examined when she actually had any head pain. There is no history of head trauma or neck trauma. She has not had any fevers, chills, or other signs or symptoms of infectious illness recently. 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 PAST SURGICAL HISTORY: She has had bilateral hip replacements and cataract extractions. MEDICATIONS: At home consist of: 1. Sertraline 50 mg p.o. daily. 2. Omeprazole 20 mg p.o. daily. 3. Aspirin 81 mg p.o. daily. 4. Metoprolol 25 mg p.o. daily. 5. Levothyroxine 75 mcg p.o. daily. 6. Plavix 75 mg p.o. daily. 7. Atorvastatin 10 mg p.o. daily. 8. Isosorbide mononitrate extended release 30 mg p.o. q.h.s. 9. Amlodipine 2.5 mg p.o. q.h.s. None of her medicines are new or been changed. ALLERGIES: She is allergic to MORPHINE and WARFARIN, actually had the brain hemorrhage on WARFARIN. REVIEW OF SYSTEMS: Notable for walking with a walker due to knee pain. She has not had any falls. Weight has been stable. No problems with chewing or swallowing. No change in vision. No double vision. No numbness in the face or limbs. She has no problems with speaking or confusion during the episodes according to her family. No significant memory problems. No pain with chewing. No jaw pain specifically. No scalp tenderness. No new body aches. PHYSICAL EXAMINATION: She is well nourished and well hydrated. Blood pressure 177/66, temperature 98.4, pulse is in the 60s, and respiratory rate 24. Oxygen saturation 93% on room air. Neck is supple. Skin is warm and dry. Heart is in regular rate and rhythm without murmurs heard. There are no cervical bruits. There is no temporal artery tenderness. Neurological Exam: Pupils react equally from 3 to 2 mm. Funduscopic exam reveals sharp discs, arteriolar tortuosity, and silver wiring. Eye movements are normal. There is a little bit of squint in the left eye, but I do not really see any ptosis. Visual ba are full to confrontation. Facial musculature is otherwise symmetric. Facial sensation to light touch is symmetric. Hearing is intact bilaterally. Palate and tongue appeared normal and speech is a little bit hoarse but clear. Motor exam is normal for age. Normal tone and no drift in the limbs. There is no tremor. Finger taps are fairly normal in the hands. Reflexes are hypoactive, absent at knees and ankles. Plantars are flexor bilaterally. We did not attempt to ambulate her. She is alert and really an excellent historian for her 86 years of age. Memory seems preserved and language is fluent. She has good attention, concentration, and fund of knowledge. LABORATORY DATA/DIAGNOSTIC STUDIES: Include MRI of the brain, CT of neck and head, all reviewed. Other laboratory data includes a normal chemistry profile on 03/02/17, hemoglobin A1c 6.1%, CRP less than 1. Her sedimentation rate on 03/01/17 was 18. CBC normal other than a hemoglobin of 11.5. IMPRESSION AND RECOMMENDATIONS: Impression is that of abrupt onset headache, which is very concerning for a vascular event. However, there is no evidence of aneurysm or dissection within the limits of the imaging that she has had. I would like to get a MR venogram of her brain to look for evidence of a carotid cavernous fistula. If the MR venogram is normal, and we will also check a sedimentation rate and consider trial of prednisone for possible sed rate normal temporal arteritis. There is a primary vascular problem causing her headaches and we will continue to pursue it along the lines noted above. We will repeat her sedimentation rate as well. Only if it is elevated at this time , consider trial of steroids. [id number]/[facility] #: [id number] MARGOT
== END 2017-03-02 21:55 | disposition home or self-care (01) ==
LOC: ED 17:02
DX: R51 Headache (principal); I25.2 Old myocardial infarction; Z87.891 Personal history of nicotine dependence; R11.0 Nausea
CPT/HCPCS: 36415; 70544; 85652; 99282; J7512

== ENCOUNTER 2018-05-29 08:23 | Inpatient (IN) | payer MEDICARE, BC ==
--- NOTE | 2018-05-17 03:45 | HP ---
HISTORY AND PHYSICAL: DATE OF SURGERY: 05/29/18. DATE OF OFFICE VISIT: 05/16/18. SURGEON: Laura Manriquez MD.* (DICTATED BY NEIL ZARAGOZA) PROCEDURE: Right total knee arthroplasty. CHIEF COMPLAINT: Right knee pain. HISTORY OF PRESENT ILLNESS: Ms. Amin is an 87-year-old female with end-stage osteoarthritis of the right knee. She has failed conservative treatment and elected to proceed with a right total knee arthroplasty, which is scheduled for 05/29/18. PAST MEDICAL HISTORY: 1. Hypertension. 2. High cholesterol. 3. Stroke. 4. [place] x2. 5. Depression. 6. Anxiety. 7. Valve disorders. 8. Hypothyroidism. PAST SURGICAL HISTORY: 1. Heart stent placement. 2. Bilateral total hip arthroplasties. 3. Intestinal surgery. 4. Cataract removal. CURRENT MEDICATIONS: 1. Fish oil. 2. Aspirin 81 mg daily. 3. MiraLax as needed. 4. Sertraline 50 mg daily. 5. Metoprolol 25 mg daily. 6. Atorvastatin. 7. Calcium 10 mg daily. 8. Plavix 75 mg daily. 9. Isosorbide mononitrate 30 mg daily. 10. Nitrostat as needed. 11. Magnesium. 12. Vitamin D3. 13. Cyanocobalamin. 14. Ipratropium bromide 2 sprays to each nostril as needed. 15. Tylenol Arthritis Pain. 16. Eyedrops. 17. Levothyroxine 75 mcg daily. ALLERGIES: To MORPHINE causing nausea, and vomiting only, and PREVACID. FAMILY HISTORY: Cancer, stroke, RA, heart disease. SOCIAL HISTORY: She is an 87-year-old female, lives alone. She does not smoke , use drugs. She uses alcohol rarely. REVIEW OF SYSTEMS: A complete 14-point review of systems was reviewed with the patient, was positive for hypothyroidism and occasional shortness of breath as well as stroke. Denies history of DVT, hepatitis, HIV, or anesthesia problems. PHYSICAL EXAMINATION GENERAL: Well-developed, well-nourished, in no acute distress. VITAL SIGNS: She stands 64 inches tall, weighs 163 pounds. Her blood pressure is 148/80, and her heart rate is 60. HEENT: Normocephalic, atraumatic. NECK: Supple. No palpable lymph nodes. PULMONARY: She has expiratory wheezes in the bilateral lower lung bases. CARDIO: Regular rate and rhythm. Strong S1, S2. ABDOMEN: Soft, nontender, nondistended. MUSCULOSKELETAL: Right lower extremity, the skin is intact. There are no open wounds or abrasions. There is a moderate joint effusion. She has tenderness over the medial and lateral joint line. There is a 12-degree valgus deformity of the right knee. Her range of motion is 10 to 120 degrees of flexion with patellofemoral crepitus. There is no varus or valgus instability. She has 2+ dorsalis pedis pulses and intact sensation in her lower extremity. Muscle group strengths are intact at 5/5. NEUROLOGICAL: She is alert and oriented x3. ASSESSMENT AND PLAN: Ms. Amin is an 87-year-old female with end-stage osteoarthritis of the right knee. She has failed conservative treatment and elected to proceed with a right total knee arthroplasty, which is scheduled for 05/29/18. Dr. Manriquez discussed the risks and benefits of the surgery at today's visit and all of her questions were answered. She will follow up with Dr. Manriquez in 2 weeks after the surgery. NEIL ZARAGOZA [id number]/[facility] #: [id number] MARGOT
[~2018-05-29 08:23] MED LIST: Buffered Lidocaine 0.9% SYRIN* 5 ML/SYR SYRINGE INTRADERM ONE
[2018-05-29] MEDS ORDERED: ceFAZolin 2 GM PREMIX (*) 2 GM/50 ML BAG IVPB ONE (08:41)
[2018-05-29] MEDS ORDERED: Midazolam* 1 MG/ML 2 ML VIAL (2 MG) ONE (09:10)
[2018-05-29] MEDS ORDERED: ROPIVACAINE 5 MG/ML 30 ML BTL (0.5%) ONE (10:57)
[2018-05-29] MEDS ORDERED: Lidocaine 1%* 5 ML VIAL ONE (10:57)
[2018-05-29] MEDS ORDERED: Ropivacaine (OR use only) 2 MG/ML 10 ML ONE (11:15)
[2018-05-29] MEDS ORDERED: Naloxone* 0.4 MG/ML 1 ML VIAL IV PRN (12:28)
[2018-05-29] MEDS ORDERED: fentaNYL* 50 MCG/ML 2 ML VIAL (100 MCG VIAL) IV PRN (12:28)
[2018-05-29] MEDS ORDERED: Acetaminophen TAB* 325 MG PO PRN (12:28)
[2018-05-29] MEDS ORDERED: Ondansetron INJ* 2 MG/ML VIAL IV PRN ×2 (12:28→13:51)
[2018-05-29] MEDS ORDERED: oxyCODONE/Acetamin 5/325 MG* TAB PO PRN ×2 (12:28→13:51)
[2018-05-29] MEDS ORDERED: Bupivacaine-MPF SPINAL* 7.5 MG/ML - 2ML AMP ONE (12:53)
[2018-05-29] MEDS ORDERED: Lidocaine 2% PF * 5 ML VIAL ONE (12:53)
[2018-05-29] MEDS ORDERED: Propofol* 10 MG/ML 20 ML BTL IV PUSH ONE (12:53)
[2018-05-29] MEDS ORDERED: EPHEDrine (Pressors)* 50 MG/ML VIAL ONE (13:02)
[2018-05-29] MEDS ORDERED: Bisacodyl SUPP* 10 MG SUPP PR PRN (13:51)
[2018-05-29] MEDS ORDERED: Polyethylene Glycol 3350* 17 GM PACKET PO PRN (13:51)
[2018-05-29] MEDS ORDERED: Ondansetron TAB* 4 MG PO PRN (13:51)
[2018-05-29] MEDS ORDERED: Morphine INJ* 2 MG/ML 1 ML SYRINGE (TWO MG - NEW SYRINGE VERSION) IV PRN (13:51)
[2018-05-29] MEDS ORDERED: diPHENhydraMINE IV* 50 MG/ML 1 ml VIAL (BENADRYL) IV PRN (13:51)
[2018-05-29] MEDS ORDERED: Magnesium Hydroxide LIQ* 30 ML UDC PO PRN (13:51)
[2018-05-29] MEDS ORDERED: Nitroglycerin TAB 0.4 MG* 0.4 MG TAB SL PRN (13:57)
[2018-05-29] MEDS ORDERED: IPRATROPIUM BROMIDE 0.06% BOTH NARES PRN (13:57)
--- NOTE | 2018-05-29 14:35 | RAD ---
HISTORY: s/p right TKA COMPARISONS: March 02, 2018 VIEWS: 2, Frontal and lateral views of the right knee FINDINGS: BONE DENSITY: Normal. BONES: The patient is status post right knee arthroplasty. There is no hardware failure or osteolysis. JOINTS: The patient is status post right knee arthroplasty. ALIGNMENT: There is no dislocation. SOFT TISSUES: Unremarkable. OTHER FINDINGS: None. IMPRESSION: STATUS POST RIGHT KNEE ARTHROPLASTY.
[2018-05-29] MEDS: Acetaminophen TAB* 325 MG PO SCH ×2 (15:45→22:24)
[2018-05-29] MEDS: oxyCODONE TAB* 5 MG TAB PO PRN ×2 (15:46→23:42)
--- NOTE | 2018-05-29 16:35 | PN ---
Progress Note - Progress Note Date of Service: 05/29/18 SOAP: Subjective: [Pt seen sitting up in bed today. States that the pain is just starting to come on. She states that she just had a pain pill. No other complaints at this time. Denies any numbness or tingling, no SOB or chest pain. ] Objective: [Gen: A&O x3. NAD MSK, RLE: Dressing c/d/i. NAD. +df/pf. NVI distally with a 2+ PT pulse ] Assessment: [POD 0 - RTKA ] Plan: [1. Continue pain medication 2. Post op abx x 24 hours 3. PT/OT to start tomorrow 4. WBAT ]
[2018-05-29] MEDS: Cyclobenzaprine TAB* 10 MG PO PRN (17:51)
--- NOTE | 2018-05-29 19:04 | CONS ---
CONSULTATION REPORT: DATE OF CONSULT: 05/29/18 PROVIDER: Ching Arnold NP ATTENDING PHYSICIAN: Dr. Moses (report dictated by Ching Arnold NP) PRIMARY CARE PROVIDER: Dr. Sofy Mejía SCENE AND LIGHTING DESIGN LECTURER: Dr. Zhang REFERRING PHYSICIAN: Dr. Manriquez.* REASON FOR CONSULT: Co-medical management status post right knee arthroplasty. HISTORY OF PRESENT ILLNESS: Ms. Amin is an 87-year-old female with a past medical history of hypertension, hyperlipidemia, history of stroke, coronary artery disease with history of [place] x2 with stent placement, depression, anxiety and hypothyroidism, who underwent an elective right knee arthroplasty with Dr. Manriquez today for end-stage osteoarthritis. The patient had a successful surgery without any complications. The patient was seen postoperatively and found to be sitting up in her bed, alert and oriented x3, visiting with her family, in no acute distress. She offers no complaints and denies any pain currently. Denies nausea. No shortness of breath or chest pain. Reports overall she feels "great." PAST MEDICAL HISTORY: 1. Hypertension. 2. Hyperlipidemia. 3. Hemorrhagic CVA in 1995, while on Coumadin. 4. Coronary artery disease with history of DC x2, status post stent placement. 5. Depression/anxiety. 6. History of valve disorders. 7. Hypothyroidism. PAST SURGICAL HISTORY: 1. Cardiac stent placement. 2. Bilateral total hip arthroplasties. 3. Cataract removal. 4. Status post partial bowel resection. HOME MEDICATIONS: 1. Zoloft 50 mg p.o. daily. 2. Zantac 300 mg p.o. at bedtime. 3. MiraLAX 17 g p.o. q.a.m. 4. Megared fish oil 1000 mg p.o. b.i.d. 5. Ocuvite vitamin eye 1 tab p.o. b.i.d. 6. Nitroglycerin 0.4 mg sublingual q.5 minutes p.r.n. 7. Metoprolol succinate XL 25 mg p.o. q.a.m. 8. Magnesium oxide 400 mg p.o. at bedtime. 9. Losartan/hydrochlorothiazide 50/12.5 mg p.o. q.a.m. 10. Synthroid 75 mcg p.o. daily. 11. Isosorbide mononitrate ER 30 mg p.o. at bedtime. 12. Ipratropium bromide 0.06% both nares t.i.d. p.r.n. 13. Glucosamine/chondroitin 1 tab p.o. b.i.d. 14. Vitamin B12 injection 1000 mcg IM monthly. 15. Plavix 75 mg p.o. q.a.m. 16. Vitamin D3 2000 units p.o. q.a.m. 17. Atorvastatin 10 mg p.o. at bedtime. 18. Aspirin 81 mg p.o. daily. 19. Acetaminophen Arthritis 1300 mg p.o. b.i.d. p.r.n. Current medications reviewed and appreciated. ALLERGIES: MORPHINE, WARFARIN. FAMILY HISTORY: The patient's mother and father as well as brother and son does have history of coronary artery disease. Her father has history of bone cancer. Niece and sister have history of breast cancer. SOCIAL HISTORY: The patient is a former smoker, quitting in 1995, smoking approximately 1 pack-a-day for 30 to 40 years. Occasional alcoholic beverages. The patient's son, Gil Amin, is her healthcare proxy. His number is [phone]. REVIEW OF SYSTEMS: A 14-point review of systems was performed. All the pertinent positives and negatives mentioned in the history of present illness are otherwise negative. PHYSICAL EXAM: Vital Signs: Temperature 97, heart rate 62, respirations 18, pulse oximetry is 98% on room air, blood pressure is 148/65. General Appearance : A well- developed 87-year-old female, lying in bed, sitting up, alert and oriented x3, in no acute distress, good historian. HEENT: Head is normocephalic and atraumatic. Pupils are equal and reactive to light. Oropharynx is clear. Dry mucous membranes. Cardiac: S1, S2. Regular rate and rhythm. No murmur, rub, or gallop appreciated. Lungs: Clear to auscultation bilaterally with good aeration throughout. Abdomen: Soft, nontender, nondistended. Normal bowel sounds throughout. Extremities: DP pulses are 2+ bilaterally and symmetric. Right knee has a Cryo unit. Both extremities appeared to be well-perfused and warm. Upper extremities have strength of 5/5 throughout and equal. Neuro: Alert and oriented x3. Cranial nerves II through XII are grossly intact. No focal deficits noted. ASSESSMENT AND PLAN: Ms. Amin is an 87-year-old female with a past medical history significant for hemorrhagic cerebrovascular accident while on Coumadin, hypertension, hyperlipidemia, coronary artery disease, status post myocardial infarction x2 with stent placement, hypothyroidism, who underwent an elective right total knee arthroplasty today with Dr. Manriquez. Hospital Medicine has been asked to co-medical manage. 1. Status post right knee arthroplasty for severe end-stage osteoarthritis. Disposition per ortho team. Pain management. Bowel regimen. PT/OT. 2. Hypertension, well-controlled at this time. She is a little on the hypertensive side with systolic blood pressure in the 150s; therefore, we will continue her home medications with isosorbide mononitrate, losartan, and metoprolol, but we will hold hydrochlorothiazide at this time. 3. Hypothyroidism. Continue Synthroid 75 mcg p.o. daily. 4. History of coronary artery disease. Continue atorvastatin. Hold aspirin and Plavix at this time and when cleared by Ortho, these should be restarted when appropriate. 5. Depression/anxiety. The patient is appropriate on exam. No noted anxiety. Continue Zoloft. 6. DVT prophylaxis: Lovenox 30 mg subcu q.24 hours. 7. Code status: DNR. Hospital Medicine will continue to follow along. TIME SPENT: Approximately 60 minutes was spent on this consultation. CHING ARNOLD, SHARONA [id number]/[facility] #: [id number] MARGOT
[2018-05-29] MEDS: oxyCODONE/Acetamin 5/325 MG* TAB PO PRN (20:14)
[2018-05-29] MEDS: Atorvastatin* 10 MG TAB PO SCH (20:16)
[2018-05-29] MEDS: Magnesium Oxide TAB* 400 MG PO SCH (20:16)
[2018-05-29] MEDS: Famotidine TAB* 20 MG PO SCH (20:17)
[2018-05-29] MEDS: Multivitamins/Minerals TAB PO SCH (20:17)
[2018-05-29] MEDS: Docusate CAP* 100 MG PO SCH (20:17)
[2018-05-29] MEDS: Isosorbide Mononitrate ER TAB* 30 MG PO SCH (20:17)
[2018-05-29] MEDS: Magnesium Hydroxide LIQ* 30 ML UDC PO SCH (20:18)
[2018-05-29] MEDS: ceFAZolin 1 GM VIAL(*) 1 GM in NS 0.9% 50 ML* 50 ML IVPB SCH (20:20)
[2018-05-30] MEDS: ceFAZolin 1 GM VIAL(*) 1 GM in NS 0.9% 50 ML* 50 ML IVPB SCH ×2 (03:59→11:19)
[2018-05-30] MEDS: oxyCODONE/Acetamin 5/325 MG* TAB PO PRN ×3 (03:59→14:40)
[2018-05-30 06:00] LABS: Hematocrit 27 % (35-47); Mean Platelet Volume 8.4 um3 (7.4-10.4); Platelet Count 158 10^3/ul (150-450)
[2018-05-30] MEDS: Levothyroxine TAB* 75 MCG TAB PO SCH (06:04)
[2018-05-30 06:05] LABS: INR 0.98 (0.77-1.02)
[2018-05-30] MEDS: oxyCODONE TAB* 5 MG TAB PO PRN ×2 (06:11→12:36)
[2018-05-30 06:17] LABS: EGFR Non-African American 64.9 (>60)
[2018-05-30] MEDS: Acetaminophen TAB* 325 MG PO SCH ×3 (06:33→20:54)
--- NOTE | 2018-05-30 07:46 | PN ---
Progress Note - Progress Note Date of Service: 05/30/18 Note: I was called to see patient as the nurse was concerned about her neurologic status. The patient states she has had "spells" of thinking fuzzily (? also difficulty with word-finding) since her stroke in 1995 and today is no different. She didn't think she got pain med this AM but did at 6 AM. Pain is better now. She is alert, speaking clearly and fluently, oriented x 3. No facial n. 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 This could be a reaction to her 10 mg dose oxycodone at 0611 hrs today. At worst this could be a partial seizure which she has had occassionally since her stroke in 1995, and has always been self-limited and not interfering with her activities significantly.
[2018-05-30] MEDS: Losartan TAB* 25 MG PO SCH (07:53)
[2018-05-30] MEDS: Metoprolol Succinate XL TAB* 25 MG PO SCH (07:53)
[2018-05-30] MEDS: Multivitamins/Minerals TAB PO SCH ×2 (07:53→20:55)
[2018-05-30] MEDS: Docusate CAP* 100 MG PO SCH ×2 (07:53→20:55)
[2018-05-30] MEDS: Magnesium Hydroxide LIQ* 30 ML UDC PO SCH ×2 (07:54→20:54)
[2018-05-30] MEDS: Cyclobenzaprine TAB* 10 MG PO PRN (08:35)
[2018-05-30] MEDS ORDERED: Hydrochlorothiazide TAB* 25 MG PO SCH (09:00)
--- NOTE | 2018-05-30 10:33 | PN ---
Progress Note - Progress Note Date of Service: 05/30/18 SOAP: Subjective: []Patient seen OOB in chair. She is feeling well with no chest pain, shortness of breath, dizziness, nausea. She has been confused this morning. Objective: []General: Well appearing, NAD. Speaking clearly, a&o x 3 Facial expression is symmetric, 5/5 service coordinator strength bilaterally. RLE: Right knee dressing CDI. Thigh soft. DF/PF intact. DP2+. sensation intact distally BL LE: Calves supple and nontender without erythema, edema or palpable cords Assessment: []s/p right total knee arthroplasty Plan: []wbat pt/ot lovenox alone for dvt prophylaxis as patient has a coumadin allergy She has a morphine allergy but is tolerating oxycodone well Vital Signs Temp 98.8 F 05/30/18 07:23 Pulse 81 05/30/18 07:23 Resp 15 05/30/18 08:35 BP 148/64 05/30/18 07:23 Pulse Ox 99 05/30/18 07:23 Intake & Output 05/29/18 05/30/18 05/30/18 18:59 06:59 18:59 Intake Total 990 1506 320 Output Total 300 600 Balance 690 906 320 Weight 160 lb Intake: IV Fluids 650 871 LR 600 871 NS 50ML, Cefazolin 2G 50 IVPB 55 ABX - CEFAZOLIN 55 Oral 340 580 320 Output: Nix 300 600 Other: Estimated Blood Loss 150 ML Comment Laboratory Last Values Hgb 9.0 g/dl (12.0-16.0) L 05/30/18 05:34 Hct 27 % (35-47) L 05/30/18 05:34 Plt Count 158 10^3/ul (150-450) 05/30/18 05:34 MPV 8.4 um3 (7.4-10.4) 05/30/18 05:34 INR (Anticoag Therapy) 0.98 (0.77-1.02) 05/30/18 05:34 Sodium 135 mmol/L (135-145) 05/30/18 05:34 Potassium 4.5 mmol/L (3.5-5.0) 05/30/18 05:34 Chloride 102 mmol/L (101-111) 05/30/18 05:34 Carbon Dioxide 29 mmol/L (22-32) 05/30/18 05:34 Anion Gap 4 mmol/L (2-11) 05/30/18 05:34 BUN 23 mg/dL (6-24) 05/30/18 05:34 Creatinine 0.83 mg/dL (0.51-0.95) 05/30/18 05:34 Est GFR ( Amer) 78.5 (>60) 05/30/18 05:34 Est GFR (Non-Af Amer) 64.9 (>60) 05/30/18 05:34 BUN/Creatinine Ratio 27.7 (8-20) H 05/30/18 05:34 Glucose 157 mg/dL (70-100) H 05/30/18 05:34 Calcium 8.9 mg/dL (8.6-10.3) 05/30/18 05:34
[2018-05-30] MEDS: Enoxaparin(*) 30 MG/0.3 ML SYR SUBCUT SCH (11:19)
[2018-05-30] MEDS: Sertraline* 50 MG TAB PO SCH (11:20)
--- NOTE | 2018-05-30 11:25 | OP ---
OPERATIVE NOTE: DATE OF OPERATION: 05/29/18 - Inpatient, SSU 350-01 DATE OF : 30 ATTENDING SURGEON: Laura Manriquez MD [employer] TE[employer]ER: NEIL Kim Ms. Dong did help throughout the procedure with preparation of the leg, wound retraction, manipulation of the knee, and wound closure. ANESTHESIOLOGIST: Dr. Sewell. ANESTHESIA: Spinal. 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 OPERATIVE PROCEDURE: Right total knee arthroplasty. BRIEF HISTORY/INDICATION: Ms. Amin is an 88-year-old female with years of increasingly severe right knee pain and valgus deformity. The patient failed conservative treatment with antiinflammatories, pain medication, intraarticular injection, and physical therapy. Due to continued pain and decreased quality of life, she elected to undergo a right total knee arthroplasty. The patient's radiograph showed [id number] arthritis. Informed consent was obtained from the patient. She understood the risks of surgery included, but were not limited to, bleeding, infection, damage to nearby structures, continued pain, need for further surgery, intraoperative fracture, nerve palsy, hardware failure or loosening, knee stiffness, loss of motion, stroke, heart attack, blood clot, and . She wished to proceed. INTRAOPERATIVE FINDINGS: Intraoperatively, the patient was noted to a have 15- degree valgus deformity and 20-degree flexion contracture to begin the case. She was brought out to full extension and valgus was corrected to 5 degrees intraoperatively. 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 She had complete loss of cartilage along the lateral and patellofemoral compartment. The patient had a large posterior tibial subchondral bone cyst in the midline. This was cleared of any debris and treated with cement at the time of cementing of the implants. TOURNIQUET TIME: 48 minutes. COMPLICATIONS: None. SPECIMEN: Bone and cartilage from the right knee joint sent to pathology. HARDWARE USED: This is [employer] cemented total knee arthroplasty hardware. Two packages of Simplex bone cement. For the femur, a size 5 narrow right posterior stabilized Legion femoral component. For the tibia, a size 3 right Cecile II tibial base plate. For the insert, posterior stabilized articular insert, size 3-4. For the patella, a 32 mm 3-peg all poly patella with 7.5 thickness. DESCRIPTION OF PROCEDURE: Ms. Amin was identified in the preanesthesia unit. Her right lower extremity was marked as the correct operative side. Informed consent was signed and placed in the chart. The patient was taken to the operating room and placed under spinal anesthesia. Nix catheter was placed. Tourniquet was placed on the right thigh. Right lower extremity was prepped and draped in the usual sterile fashion. Preop time-out was made to correctly identify the patient, side, and site. Appropriate perioperative antibiotics were given within 1 hour of incision. Tourniquet was inflated and total tourniquet time for this procedure was 48 minutes. A midline incision was made with a 10-blade and carried down to the extensor mechanism. A new 10-blade was used to make a standard medial parapatellar arthrotomy. Patella was subluxed laterally. Electrocautery was used to subperiosteally elevate soft tissue off the superomedial tibia to the mid sagittal plane. Knee was flexed up. Anterior horn of the lateral meniscus and ACL were sharply released. Drill was used to enter the distal femur. Intramedullary distal femoral cutting guide was pinned on the distal femur. Lateral femoral condylar hypoplasia was noted accounted for. Oscillating saw was used to make the distal femoral cut. Next, the external rotation guide was pinned on the distal femur. The femur was sized to a size 5. Size 5 multi- cutting jig was pinned on the distal femur. Oscillating saw was used to make the usual 4-chamfer cuts. The PCL was completely released. The tibia was subluxed anteriorly. Extramedullary tibial cutting guide was pinned on the proximal tibia. Oscillating saw was used to make a proximal tibial cut perpendicular to the mechanical axis of the tibia. The bone was carefully removed. The knee was brought out into full extension. There was some tightness laterally. Conservative pie-crusting technique was used to release some lateral ligaments. Medial and lateral ligamentous balancing was much improved. Flexion and extension gaps were well balanced. It was noted that there was chronic MCL laxity throughout the case. The knee was flexed up. Lamina logistics and planning manager was placed both medially and laterally. Any remaining meniscus was carefully removed using electrocautery. Curved osteotome was used to remove any posterior osteophytes. Tibial tray and drop muna were placed and once again confirmed a satisfactory tibial cut. A size 5 narrow right femoral trial was impacted on to the distal femur and had excellent fit. The box for the posterior stabilized implant was prepared using a reamer and box cut osteotome. Size 3 tibial tray trial with 9 mm insert trial was placed and the knee was taken through range of motion. The knee had full extension, although significant hamstring contracture was noted. Flexion was to 130 degrees with satisfactory patellofemoral tracking. The patella was everted. 7 mm of patellar bone and cartilage was carefully removed using an oscillating saw. Patella was sized to a size 32. Size 32 three-peg all poly patella with 7.5 thickness was placed and the knee was taken through range of motion. There was satisfactory patellofemoral tracking. All trials were carefully removed. The tibia was subluxed anteriorly and sized to a size 3. Proximal tibia was prepared using a size 3 keel punch. A large subchondral bone cyst was encountered along the posterior tibia in the midline, this was cleared of any cystic debris. This was filled during cementing of the implants. All bony cut surfaces were copiously irrigated with sterile saline and dried. Final implants were cemented into place starting with the tibia followed by the femur and last the patella. A 9 mm insert trial was placed and the knee was brought out into full extension. Tourniquet was turned down at 48 minutes. Electrocautery was used to obtain meticulous hemostasis. The knee was copiously irrigated with sterile saline. Once the cement had fully cured, the insert trial was removed. Any excess cement from around the hardware and capsule were removed. Final insert chosen was a 9 mm constrained articular insert, size 3-4. This was locked into position on the tibial tray. Stability of the insert was checked and rechecked and noted to be stable. The extensor mechanism was closed using interrupted #1 Vicryls. The rest of the incision was closed in a layered fashion using 0 and 2-0 Vicryls. Skin was closed using running 3-0 nylon suture. Sterile Xeroform, 4x4s, and Webril were used to cover the incision. Shay wrap and cold pack were placed over this. The patient' s anesthesia was reversed without difficulty. She was taken to the PACU in stable condition. Intended weightbearing will be weightbearing as tolerated. Intended DVT prophylaxis will be Coumadin with a Lovenox bridge. [id number]/[facility] #: [id number] MARGOT
--- NOTE | 2018-05-30 16:47 | PN ---
Subjective Date of Service: 05/30/18 Interval History: Mrs. Zaman reports feeling tired. She has been up ambulating with PT earlier. Denies chest pain or SOB. Her right knee pain is controlled. Nix is out, has not voided yet. Appetite good, denies nausea or vomiting. She has no complaints today. Family History: Unchanged from Admission Social History: Unchanged from Admission Past Medical History: Unchanged from Admission Objective Active Medications: Acetaminophen (Tylenol Tab*) 975 mg PO Q8H [facility] Last Admin: 05/30/18 14:11 Dose: Not Given Atorvastatin Calcium (Lipitor*) 10 mg PO BEDTIME [facility] Last Admin: 05/29/18 20:16 Dose: 10 mg Bisacodyl (Dulcolax Supp*) 10 mg NC DAILY PRN PRN Reason: constipation Cyclobenzaprine HCl (Flexeril Tab*) 10 mg PO TID PRN PRN Reason: SPASMS Last Admin: 05/30/18 08:35 Dose: 10 mg Diphenhydramine HCl (Benadryl Iv*) 12.5 mg IV Q6H PRN PRN Reason: PRURITIS Docusate Sodium (Colace Cap*) 100 mg PO BID [facility] Last Admin: 05/30/18 07:53 Dose: 100 mg Enoxaparin Sodium (Lovenox(*)) 30 mg SUBCUT Q24H [facility] Last Admin: 05/30/18 11:19 Dose: 30 mg Famotidine (Pepcid Tab*) 40 mg PO BEDTIME [facility]; Protocol Last Admin: 05/29/18 20:17 Dose: 40 mg Lactated Ringer's (Lactated Ringers 1000 Ml Bag*) 1,000 mls @ 100 mls/hr IV PER RATE [facility] Last Admin: 05/29/18 14:12 Dose: 100 mls/hr Isosorbide Mononitrate (Imdur Er Tab*) 30 mg PO BEDTIME [facility] Last Admin: 05/29/18 20:17 Dose: 30 mg Lactulose (Lactulose*) 30 ml PO Q6H PRN PRN Reason: constipation Levothyroxine Sodium (Synthroid Tab*) 75 mcg PO 0500 [facility] Last Admin: 05/30/18 06:04 Dose: 75 mcg Losartan Potassium (Cozaar Tab*) 50 mg PO QAM [facility] Last Admin: 05/30/18 07:53 Dose: 50 mg Magnesium Hydroxide (Milk Of Magnesia Liq*) 30 ml PO BID [facility] Last Admin: 05/30/18 07:54 Dose: Not Given Magnesium Hydroxide (Milk Of Magnesia Liq*) 30 ml PO Q6H PRN PRN Reason: constipation Magnesium Oxide (Magox 400 Tab*) 400 mg PO BEDTIME [facility] Last Admin: 05/29/18 20:16 Dose: 400 mg Metoprolol Succinate (Toprol Xl Tab*) 25 mg PO QAM [facility] Last Admin: 05/30/18 07:53 Dose: 25 mg Morphine Sulfate (Morphine Inj ((Syringe))*) 4 mg IV Q2H PRN PRN Reason: PAIN Multivitamins/Minerals (Theragran/Minerals Tab*) 1 tab PO BID [facility] Last Admin: 05/30/18 07:53 Dose: 1 tab Nitroglycerin (Nitroglycerin Tab 0.4 Mg*) 0.4 mg SL Q5M PRN PRN Reason: ANGINA Non-Formulary Medication (Ipratropium [place] [Ipratropium [place]]) 0.06 % BOTH NARES TID PRN PRN Reason: CONGESTION Ondansetron HCl (Zofran Inj*) 4 mg IV Q6H PRN PRN Reason: nausea Ondansetron HCl (Zofran Tab*) 4 mg PO Q6H PRN PRN Reason: NAUSEA Oxycodone HCl (Roxycodone Tab*) 10 mg PO Q4H PRN PRN Reason: SEVERE PAIN Last Admin: 05/30/18 12:36 Dose: 10 mg Oxycodone/Acetaminophen (Percocet 5/325 Tab*) 1 tab PO Q4H PRN PRN Reason: PAIN Oxycodone/Acetaminophen (Percocet 5/325 Tab*) 2 tab PO Q4H PRN PRN Reason: PAIN Last Admin: 05/30/18 14:40 Dose: 2 tab Polyethylene Glycol/Electrolytes (Miralax*) 17 gm PO DAILY PRN PRN Reason: Constipation Sertraline HCl (Zoloft*) 50 mg PO 1200 [facility] Last Admin: 05/30/18 11:20 Dose: 50 mg Vital Signs - 8 hr 05/30/18 05/30/18 05/30/18 10:35 11:19 12:36 Respiratory 15 16 15 Rate 08/05/30/18 05/30/18 13:19 14:40 14:41 Respiratory 15 16 15 Rate Oxygen Devices in Use Now: Nasal Cannula Appearance: Elderly female sitting on her chair, appears comfortable and in NAD. Eyes: No Scleral Icterus, PERRLA Ears/Nose/Mouth/Throat: Clear Oropharnyx, Mucous Membranes Moist Neck: NL Appearance and Movements; NL JVP, Trachea Midline Respiratory: Symmetrical Chest Expansion and Respiratory Effort, Clear to Auscultation Cardiovascular: NL Sounds; No Murmurs; No JVD, RRR Abdominal: NL Sounds; No Tenderness; No Distention Extremities: No Edema Skin: No Rash or Ulcers Neurological: Alert and Oriented x 3 Nutrition: Taking PO's Result Diagrams: 05/30/18 05:34 05/30/18 05:34 Additional Lab and Data: . Microbiology and Other Data: . Diagnostic Imaging: Patient Name: SUJATHA ZAMAN Medical Record#: [id number] Ordering Physician: Latoya TREJO Acct.#: [id number] : 1930 Age: 87 Sex: F Location: AM ADMITS Exam Date: 05/29/18 1351 ADM Status: ADM IN Order Information: KNEE RIGHT 1-2 VWS Accession Number: [id number] CPT: 40075 HISTORY: s/p right TKA COMPARISONS: March 02, 2018 VIEWS: 2, Frontal and lateral views of the right knee FINDINGS: BONE DENSITY: Normal. BONES: The patient is status post right knee arthroplasty. There is no hardware failure or osteolysis. JOINTS: The patient is status post right knee arthroplasty. ALIGNMENT: There is no dislocation. SOFT TISSUES: Unremarkable. OTHER FINDINGS: None. IMPRESSION: STATUS POST RIGHT KNEE ARTHROPLASTY. <Electronically signed by Rick Flores MD in OV> 05/29/18 1431 EKG Data: . Assess/Plan/Problems-Billing Assessment: An 88 y/o female with hx HTN, HLD, CAD, hemorrhagic CVA, [place] with 2 stents placed , who is POD#1 s/p right total knee arthroplasty, clinically stable. - Patient Problems (1) Status post right knee replacement Current Visit: Yes Status: Acute Comment: - PT/OT per orthopedic team - Pain seems well controlled - Likely for STR placement upon discharge (2) CAD (coronary artery disease) Current Visit: No Status: Acute Comment: - Continue atorvastatin and isosorbide. - Plavix on hold for post-operative period, will discuss when to resume it per ortho recommendations. (3) Hypertension Current Visit: No Status: Acute Comment: - BP well controlled. Continue metoprolol and Losartan. (4) Depression Current Visit: No Status: Acute Comment: - Continue zoloft. (5) Hypothyroidism Current Visit: No Status: Acute Comment: - Continue levothyroxine. (6) DVT prophylaxis Current Visit: No Status: Acute Comment: - SQ Lovenox per ortho (7) DNR (do not resuscitate) Current Visit: No Status: Acute Status and Disposition: Inpatient. Anticipate discharge to STR per ortho when stable.
[2018-05-30] MEDS: Famotidine TAB* 20 MG PO SCH (20:55)
[2018-05-30] MEDS: Magnesium Oxide TAB* 400 MG PO SCH (20:55)
[2018-05-30] MEDS: Atorvastatin* 10 MG TAB PO SCH (20:55)
[2018-05-30] MEDS: Isosorbide Mononitrate ER TAB* 30 MG PO SCH (20:55)
[2018-05-31] MEDS: oxyCODONE TAB* 5 MG TAB PO PRN ×2 (00:13→05:13)
[2018-05-31] MEDS: Levothyroxine TAB* 75 MCG TAB PO SCH (05:12)
[2018-05-31] MEDS: Acetaminophen TAB* 325 MG PO SCH ×3 (05:12→22:13)
[2018-05-31 05:46] LABS: Hematocrit 24 % (35-47); Hemoglobin 8.1 g/dl (12.0-16.0); Mean Platelet Volume 8.8 um3 (7.4-10.4); Platelet Count 151 10^3/ul (150-450)
[2018-05-31] MEDS: Cyclobenzaprine TAB* 10 MG PO PRN (08:16)
[2018-05-31] MEDS: Magnesium Hydroxide LIQ* 30 ML UDC PO SCH ×2 (09:13→22:17)
[2018-05-31] MEDS: Docusate CAP* 100 MG PO SCH ×2 (09:13→22:10)
[2018-05-31] MEDS: Losartan TAB* 25 MG PO SCH (09:13)
[2018-05-31] MEDS: Multivitamins/Minerals TAB PO SCH ×2 (09:13→22:11)
[2018-05-31] MEDS: Metoprolol Succinate XL TAB* 25 MG PO SCH (09:13)
--- NOTE | 2018-05-31 10:05 | PN ---
Progress Note - Progress Note Date of Service: 05/31/18 SOAP: Subjective: []Patient seen and examined today. Denies chest pain, shortness of breath, dizziness, nausea. She feels very tired. Her right knee is painful with movement. Objective: []General: NAD. Drowsy. Appropriate conversation Facial expression is symmetric, 5/5 crimp setter strength bilaterally. RLE: Right knee dressing changed, incision is CDI without surrounding erythema. lateral knee with superficial skin blistering consistent with wrinkles of shay bandage. Thigh soft. DF/PF intact. DP2+. sensation intact distally BL LE: Calves supple and nontender without erythema, edema or palpable cords Assessment: []s/p right total knee arthroplasty Plan: []wbat pt/ot lovenox alone x 30 days for dvt prophylaxis as patient has a coumadin allergy Shay wrapped loosely as patient skin is sensitive to pressure. PMRU evaluation ongoing Vital Signs Temp 99.5 F 05/31/18 07:28 Pulse 81 05/31/18 07:28 Resp 16 05/31/18 09:06 BP 144/70 05/31/18 07:28 Pulse Ox 94 05/31/18 08:00 Intake & Output 05/30/18 05/31/18 05/31/18 18:59 06:59 18:59 Intake Total 1050 2387 0 Output Total 300 350 Balance 750 2037 0 Intake: IV Fluids 2026 ABX - CEFAZOLIN 115 LR 1912 Oral 1050 360 0 Output: Urine 0 0 Straight Cath 300 350 Laboratory Last Values Hgb 8.1 g/dl (12.0-16.0) L 05/31/18 05:08 Hct 24 % (35-47) L 05/31/18 05:08 Plt Count 151 10^3/ul (150-450) 05/31/18 05:08 MPV 8.8 um3 (7.4-10.4) 05/31/18 05:08 INR (Anticoag Therapy) 1.00 (0.77-1.02) 05/31/18 05:08 Sodium 135 mmol/L (135-145) 05/30/18 05:34 Potassium 4.5 mmol/L (3.5-5.0) 05/30/18 05:34 Chloride 102 mmol/L (101-111) 05/30/18 05:34 Carbon Dioxide 29 mmol/L (22-32) 05/30/18 05:34 Anion Gap 4 mmol/L (2-11) 05/30/18 05:34 BUN 23 mg/dL (6-24) 05/30/18 05:34 Creatinine 0.83 mg/dL (0.51-0.95) 05/30/18 05:34 Est GFR ( Amer) 78.5 (>60) 05/30/18 05:34 Est GFR (Non-Af Amer) 64.9 (>60) 05/30/18 05:34 BUN/Creatinine Ratio 27.7 (8-20) H 05/30/18 05:34 Glucose 157 mg/dL (70-100) H 05/30/18 05:34 Calcium 8.9 mg/dL (8.6-10.3) 05/30/18 05:34
[2018-05-31] MEDS: Enoxaparin(*) 30 MG/0.3 ML SYR SUBCUT SCH (11:42)
[2018-05-31] MEDS: Sertraline* 50 MG TAB PO SCH (11:42)
--- NOTE | 2018-05-31 12:41 | PN ---
Subjective Date of Service: 05/31/18 Interval History: Patient was seen and examined at bedside. Reports feeling tired, having a hard time staying awake during the day. Denies chest pain, SOB, fever or chills. Appetite is poor. Still unable to void since Nix catheter was removed. No knee pain, headaches or blurred vision. Family History: Unchanged from Admission Social History: Unchanged from Admission Past Medical History: Unchanged from Admission Objective Active Medications: Acetaminophen (Tylenol Tab*) 975 mg PO Q8H [facility] Last Admin: 05/31/18 05:12 Dose: 975 mg Atorvastatin Calcium (Lipitor*) 10 mg PO BEDTIME [facility] Last Admin: 05/30/18 20:55 Dose: 10 mg Bisacodyl (Dulcolax Supp*) 10 mg NC DAILY PRN PRN Reason: constipation Cyclobenzaprine HCl (Flexeril Tab*) 10 mg PO TID PRN PRN Reason: SPASMS Last Admin: 05/31/18 08:16 Dose: 10 mg Diphenhydramine HCl (Benadryl Iv*) 12.5 mg IV Q6H PRN PRN Reason: PRURITIS Docusate Sodium (Colace Cap*) 100 mg PO BID [facility] Last Admin: 05/31/18 09:13 Dose: 100 mg Enoxaparin Sodium (Lovenox(*)) 30 mg SUBCUT Q24H [facility] Last Admin: 05/31/18 11:42 Dose: 30 mg Famotidine (Pepcid Tab*) 40 mg PO BEDTIME [facility]; Protocol Last Admin: 05/30/18 20:55 Dose: 40 mg Lactated Ringer's (Lactated Ringers 1000 Ml Bag*) 1,000 mls @ 75 mls/hr IV PER RATE [facility] Isosorbide Mononitrate (Imdur Er Tab*) 30 mg PO BEDTIME [facility] Last Admin: 05/30/18 20:55 Dose: 30 mg Lactulose (Lactulose*) 30 ml PO Q6H PRN PRN Reason: constipation Levothyroxine Sodium (Synthroid Tab*) 75 mcg PO 0500 [facility] Last Admin: 05/31/18 05:12 Dose: 75 mcg Losartan Potassium (Cozaar Tab*) 50 mg PO QAM [facility] Last Admin: 05/31/18 09:13 Dose: 50 mg Magnesium Hydroxide (Milk Of Magnesia Liq*) 30 ml PO BID [facility] Last Admin: 05/31/18 09:13 Dose: 30 ml Magnesium Hydroxide (Milk Of Magnesia Liq*) 30 ml PO Q6H PRN PRN Reason: constipation Magnesium Oxide (Magox 400 Tab*) 400 mg PO BEDTIME [facility] Last Admin: 05/30/18 20:55 Dose: 400 mg Metoprolol Succinate (Toprol Xl Tab*) 25 mg PO QAM [facility] Last Admin: 05/31/18 09:13 Dose: 25 mg Morphine Sulfate (Morphine Inj ((Syringe))*) 4 mg IV Q2H PRN PRN Reason: PAIN Multivitamins/Minerals (Theragran/Minerals Tab*) 1 tab PO BID [facility] Last Admin: 05/31/18 09:13 Dose: 1 tab Nitroglycerin (Nitroglycerin Tab 0.4 Mg*) 0.4 mg SL Q5M PRN PRN Reason: ANGINA Non-Formulary Medication (Ipratropium [place] [Ipratropium [place]]) 0.06 % BOTH NARES TID PRN PRN Reason: CONGESTION Ondansetron HCl (Zofran Inj*) 4 mg IV Q6H PRN PRN Reason: nausea Ondansetron HCl (Zofran Tab*) 4 mg PO Q6H PRN PRN Reason: NAUSEA Oxycodone HCl (Roxycodone Tab*) 10 mg PO Q4H PRN PRN Reason: SEVERE PAIN Last Admin: 05/31/18 05:13 Dose: 10 mg Oxycodone/Acetaminophen (Percocet 5/325 Tab*) 1 tab PO Q4H PRN PRN Reason: PAIN Oxycodone/Acetaminophen (Percocet 5/325 Tab*) 2 tab PO Q4H PRN PRN Reason: PAIN Last Admin: 05/30/18 14:40 Dose: 2 tab Polyethylene Glycol/Electrolytes (Miralax*) 17 gm PO DAILY PRN PRN Reason: Constipation Sertraline HCl (Zoloft*) 50 mg PO 1200 [facility] Last Admin: 05/31/18 11:42 Dose: 50 mg Vital Signs - 8 hr 05/31/18 05/31/18 05/31/18 05:13 07:28 08:00 Temperature 99.5 F Pulse Rate 81 Respiratory 18 20 Rate Blood Pressure 144/70 (mmHg) O2 Sat by Pulse 89 94 Oximetry 05/31/18 05/31/18 05/31/18 08:16 09:06 10:16 Temperature Pulse Rate Respiratory 18 16 15 Rate Blood Pressure (mmHg) O2 Sat by Pulse Oximetry Oxygen Devices in Use Now: Nasal Cannula Appearance: Appears tired, but comfortable on her chair, eating lunch. Eyes: No Scleral Icterus, PERRLA Ears/Nose/Mouth/Throat: Clear Oropharnyx, Mucous Membranes Moist Neck: NL Appearance and Movements; NL JVP, Trachea Midline Respiratory: Symmetrical Chest Expansion and Respiratory Effort, Clear to Auscultation Cardiovascular: NL Sounds; No Murmurs; No JVD, RRR Abdominal: NL Sounds; No Tenderness; No Distention Extremities: No Edema Neurological: Alert and Oriented x 3 Result Diagrams: 05/31/18 05:08 05/30/18 05:34 Additional Lab and Data: . Microbiology and Other Data: . Diagnostic Imaging: . EKG Data: . Assess/Plan/Problems-Billing Assessment: An 88 y/o female with hx HTN, HLD, CAD, hemorrhagic CVA, [place] with 2 stents placed , who is POD#2 s/p right total knee arthroplasty, clinically stable. - Patient Problems (1) Status post right knee replacement Current Visit: Yes Status: Acute Comment: - PT/OT per orthopedic team - Pain seems well controlled - Likely for STR placement upon discharge (2) CAD (coronary artery disease) Current Visit: No Status: Acute Comment: - Continue atorvastatin and isosorbide. - Plavix on hold for post-operative period, will discuss when to resume it per ortho recommendations. (3) Hypertension Current Visit: No Status: Acute Comment: - BP well controlled. Continue metoprolol and Losartan. (4) Depression Current Visit: No Status: Acute Comment: - Continue zoloft. (5) Hypothyroidism Current Visit: No Status: Acute Comment: - Continue levothyroxine. (6) Urinary retention Current Visit: Yes Status: Acute Comment: - Unclear etiology. - Will continue to scan bladder, straight cath prn (7) DVT prophylaxis Current Visit: No Status: Acute Comment: - SQ Lovenox per ortho (8) DNR (do not resuscitate) Current Visit: No Status: Acute Status and Disposition: Inpatient. Anticipate discharge to STR per ortho when stable.
[2018-05-31 15:54] LABS: Hematocrit 25 % (35-47); Hemoglobin 7.6 g/dl (12.0-16.0)
[2018-05-31] MEDS: Isosorbide Mononitrate ER TAB* 30 MG PO SCH (22:09)
[2018-05-31] MEDS: Atorvastatin* 10 MG TAB PO SCH (22:10)
[2018-05-31] MEDS: Famotidine TAB* 20 MG PO SCH (22:11)
[2018-05-31] MEDS: Magnesium Oxide TAB* 400 MG PO SCH (22:12)
[2018-05-31 22:59] LABS: Hematocrit 27 % (35-47); Hemoglobin 8.9 g/dl (12.0-16.0)
[2018-06-01] MEDS: Levothyroxine TAB* 75 MCG TAB PO SCH (05:31)
[2018-06-01] MEDS: Acetaminophen TAB* 325 MG PO SCH (05:31)
[2018-06-01 05:46] LABS: Hematocrit 25 % (35-47); Hemoglobin 8.4 g/dl (12.0-16.0); Mean Platelet Volume 8.8 um3 (7.4-10.4); Platelet Count 142 10^3/ul (150-450)
[2018-06-01 05:53] LABS: INR 0.95 (0.77-1.02)
[2018-06-01] MEDS: Magnesium Hydroxide LIQ* 30 ML UDC PO SCH (10:08)
[2018-06-01] MEDS: Multivitamins/Minerals TAB PO SCH (10:21)
[2018-06-01] MEDS: Docusate CAP* 100 MG PO SCH (10:21)
[2018-06-01] MEDS: Losartan TAB* 25 MG PO SCH (10:22)
[2018-06-01] MEDS: Metoprolol Succinate XL TAB* 25 MG PO SCH (10:22)
--- NOTE | 2018-06-01 10:22 | PN ---
Progress Note - Progress Note Date of Service: 06/01/18 SOAP: Subjective: POD #3 Right TKA. Pt reports feeling better today, knee is "sore" but manageable. Still with some lightheadedness but significant improvement from yesterday after transfusion. Able to participate more actively with PT today. Denies CP, SOB, f/c or calf pain Objective: Vitals: Temp Pulse Resp BP Pulse Ox 97.9 F 71 20 137/60 91 06/01/18 07:29 06/01/18 07:29 06/01/18 07:29 06/01/18 07:29 06/01/18 07:29 Gen: A&Ox3, NAD at rest walking in room. + auditory wheezing RLE: Dressing C/D/I, calf soft, NT. + f/e at ankle and MTPs, N/V intact Labs: Laboratory Last Values Hgb 8.4 g/dl (12.0-16.0) L 06/01/18 05:11 Hct 25 % (35-47) L 06/01/18 05:11 Plt Count 142 10^3/ul (150-450) L 06/01/18 05:11 MPV 8.8 um3 (7.4-10.4) 06/01/18 05:11 INR (Anticoag Therapy) 0.95 (0.77-1.02) 06/01/18 05:11 Sodium 135 mmol/L (135-145) 05/30/18 05:34 Potassium 4.5 mmol/L (3.5-5.0) 05/30/18 05:34 Chloride 102 mmol/L (101-111) 05/30/18 05:34 Carbon Dioxide 29 mmol/L (22-32) 05/30/18 05:34 Anion Gap 4 mmol/L (2-11) 05/30/18 05:34 BUN 23 mg/dL (6-24) 05/30/18 05:34 Creatinine 0.83 mg/dL (0.51-0.95) 05/30/18 05:34 Est GFR ( Amer) 78.5 (>60) 05/30/18 05:34 Est GFR (Non-Af Amer) 64.9 (>60) 05/30/18 05:34 BUN/Creatinine Ratio 27.7 (8-20) H 05/30/18 05:34 Glucose 157 mg/dL (70-100) H 05/30/18 05:34 Calcium 8.9 mg/dL (8.6-10.3) 05/30/18 05:34 Blood Type A Negative 05/31/18 05:08 Antibody Screen Negative 05/31/18 05:08 Crossmatch See Detail 05/31/18 05:08 Assessment: POD #3 Right TKA Plan: D/C to PMRU today Lovenox held due to low H/H
[2018-06-01] MEDS: Sertraline* 50 MG TAB PO SCH (11:42)
[2018-06-01] MEDS: Enoxaparin(*) 30 MG/0.3 ML SYR SUBCUT SCH (11:42)
--- NOTE | 2018-06-01 12:46 | RAD ---
INDICATION: Wheezing COMPARISON: February 13, 2018 TECHNIQUE: An AP portable view obtained at 1231 hours is submitted. FINDINGS: Bones/Soft Tissues: There are no acute bony findings. Cardiomediastinal: The cardiomediastinal silhouette is normal. Lungs: There are no acute infiltrates. There are minimal chronic left basilar abnormalities. There is hyperinflation Pleura: There are no pleural effusions. Other: None IMPRESSION: NO ACTIVE DISEASE. HYPERINFLATION.
[2018-06-01] MEDS ORDERED: IPRATROPIUM BROMIDE 0.06% BOTH NARES PRN (12:50)
[2018-06-01 13:06] VITALS: BP 122/52
--- NOTE | 2018-06-01 19:59 | DS ---
AMENDED REPORT NOW INCLUDES COSIGNER DESIGNATION - ESIGNED BEFORE ADJUSTMENT DISCHARGE SUMMARY: DATE OF ADMISSION: 05/29/18 DATE OF DISCHARGE: 06/01/18 PROVIDER: Laura Manriquez MD * (DICTATED BY NEIL PUENTE) ADMITTING DIAGNOSIS: Severe end-stage osteoarthritis of the left knee. DISCHARGE DIAGNOSIS: Severe end-stage osteoarthritis of the left knee, status post left total knee arthroplasty. SECONDARY DIAGNOSES: 1. Hypertension. 2. High cholesterol. 3. History of stroke. 4. Myocardial infarction x2. 5. Depression and anxiety. 6. Valve disorders. 7. Hypothyroidism. HISTORY OF PRESENT ILLNESS: Ms. Amin is an 88-year-old female who has end- stage osteoarthritis of the right knee. She failed conservative management and elected to proceed with a right total knee arthroplasty. HOSPITAL COURSE: On 05/29/18, the patient was admitted to [facility] and underwent a successful right total knee arthroplasty by Dr. Manriquez. She recovered briefly in the postanesthesia care unit and was transferred to the short- stay surgical unit in stable condition. On postop day 1, the patient was found to have some dizziness and confusion, and hospitalist was consulted on. She has had some partial seizure since the time of her stroke and was thought to be having this again. She had no facial droop or asymmetry. She had good strength bilaterally. The patient's pain was well controlled. She did have some acute blood loss anemia with H and H of 9.0 and 27. On postop day 2, the patient was found to have more fatigue and lightheadedness. Her narcotics were held. Her H and H was 7.6 and 25. She was transfused with 1 unit of packed red blood cells. The patient responded well. H and H improved to 8.9 and 27 and lightheadedness had resolved. On postop day 2, the Nix catheter was removed. However, the patient was unable to void and Nix catheter was replaced. On postop day 3, the patient was able to participate better with physical therapy. H and H remained stable at 8.4 and 25 and the patient remained asymptomatic at this point. She does have some auditory wheezing on exam and had some mild oxygen desaturation when on room air, so a chest x-ray was ordered and this was pending. The patient was; however, found stable for discharge to the [facility] inpatient rehab at this time. DISCHARGE MEDICATIONS: 1. The patient will use Tylenol 650 mg p.o. q.4 to 6 hours p.r.n. pain. 2. The patient's Lovenox will be held given her low H and H. 3. Colace 100 mg p.o. b.i.d. p.r.n. constipation. 4. Dulcolax suppository as needed for constipation as well. She will continue her home medications of: 1. Lipitor 10 mg p.o. q.h.s. 2. Pepcid 40 mg p.o. q.h.s. 3. Imdur ER 30 mg p.o. q.h.s. 4. Synthroid 75 mcg p.o. every day. 5. Cozaar 50 mg p.o. every day. 6. Metoprolol succinate 25 mg p.o. every day. 7. Mag-Ox 400 mg p.o. q.h.s. 8. Nitroglycerin 0.4 mg sublingual q.5 minutes p.r.n. chest pain. 9. Zoloft 50 mg p.o. every day. The patient will continue weightbearing as tolerated on the right lower extremity. Dressing changes as needed. Suture removal will be in 10 to 14 days postoperatively. She will follow up in the office with Dr. Manriquez 10 to 14 days postoperatively if discharged from [facility] at that point. NEIL PUENTE [id number]/[facility] #: [id number] [facility] INS[facility]George
== END 2018-06-01 12:55 | DRG 470 ==
LOC: AA 08:23 → SSU 13:51
PROVIDERS: ADMIT Orthopaedic Surgery Adult Reconstructive Orthopaedic Surgery; ATTEND Orthopaedic Surgery Adult Reconstructive Orthopaedic Surgery
PROC: 0SRC0J9 Replacement of Right Knee Joint with Synthetic Substitute, Cemented, Open Approach (ICD-10-PCS; 2018-05-29)
PROC: 30233N1 Transfusion of Nonautologous Red Blood Cells into Peripheral Vein, Percutaneous Approach (ICD-10-PCS; principal; 2018-05-31)
DX: M17.11 Unilateral primary osteoarthritis, right knee (principal); D62 Acute posthemorrhagic anemia; G40.89 Other seizures; I10 Essential (primary) hypertension; F32.9 Major depressive disorder, single episode, unspecified; F41.9 Anxiety disorder, unspecified; E03.9 Hypothyroidism, unspecified; R41.0 Disorientation, unspecified; R06.2 Wheezing; Z96.643 Presence of artificial hip joint, bilateral; I25.10 Atherosclerotic heart disease of native coronary artery without angina pectoris; R33.9 Retention of urine, unspecified; M21.061 Valgus deformity, not elsewhere classified, right knee; M25.761 Osteophyte, right knee; Z66 Do not resuscitate; I95.9 Hypotension, unspecified; E78.5 Hyperlipidemia, unspecified; Z90.49 Acquired absence of other specified parts of digestive tract; Z80.3 Family history of malignant neoplasm of breast; I25.2 Old myocardial infarction; Z86.73 Personal history of transient ischemic attack (TIA), and cerebral infarction without residual deficits; Z95.5 Presence of coronary angioplasty implant and graft; Z98.49 Cataract extraction status, unspecified eye; Z88.5 Allergy status to narcotic agent; Z88.8 Allergy status to other drugs, medicaments and biological substances; Z82.49 Family history of ischemic heart disease and other diseases of the circulatory system; Z82.61 Family history of arthritis; Z82.3 Family history of stroke; Z80.8 Family history of malignant neoplasm of other organs or systems; Z87.891 Personal history of nicotine dependence; Z72.89 Other problems related to lifestyle; Q79.9 Congenital malformation of musculoskeletal system, unspecified
CPT/HCPCS: 36415; 71045; 80048; 85014; 85018; 85049; 85610; 86850; 86900; 86901; 86922; 88305; 88311; A9270-GY; C1776; G8978-GP-CK; G8979-GP-CH; G8987-GO-CL; G8988-GO-CH; J0690; J1650; J2250; J2704; J2795; P9040

== ENCOUNTER 2018-06-01 11:20 | Inpatient (IN) | payer MEDICARE, BC ==
[2018-06-01] MEDS ORDERED: Senna TAB PO PRN (11:32)
[2018-06-01] MEDS ORDERED: Al Hydrox/Mg Hydrox/Simet LIQ* 30 ML UDC PO PRN (11:32)
[2018-06-01] MEDS ORDERED: Bisacodyl SUPP* 10 MG SUPP PR PRN (11:32)
[2018-06-01] MEDS ORDERED: Magnesium Hydroxide LIQ* 30 ML UDC PO PRN (11:32)
[2018-06-01] MEDS ORDERED: Nitroglycerin TAB 0.4 MG* 0.4 MG TAB SL PRN (11:44)
[2018-06-01] MEDS ORDERED: Polyethylene Glycol 3350* 17 GM PACKET PO PRN (11:50)
[2018-06-01] MEDS ORDERED: Acetaminophen TAB* 325 MG PO SCH (12:00)
[2018-06-01] MEDS ORDERED: Acetaminophen TAB* 325 MG ONE (14:22)
[2018-06-01] MEDS: IPRATROPIUM BR 0.06% BOTH NARES SCH (18:08)
--- NOTE | 2018-06-01 19:42 | HP ---
CC: Dr. Mejía; Dr. Manriquez; Dr. Zhang REHABILITATION ADMISSION HISTORY AND PHYSICAL: DATE OF ADMISSION: 06/01/18 REASON FOR ADMISSION: Status post right total knee replacement secondary to osteoarthritis. PRIMARY CARE PROVIDER: Dr. Mejía. ORTHOPEDIC SURGEON: Dr. Manriquez. WHARF OPERATOR: Dr. Zhang. HISTORY OF PRESENT ILLNESS: This is an 88-year-old woman who was admitted on for elective right total knee replacement secondary to osteoarthritis by Dr. Manriquez. Previously, she had undergone bilateral total hip replacements and apparently she has been told she should have her shoulders replaced. Postoperatively, she was noted to be coughing on liquids. Per her daughter, who is in the room, while I do the history, this is not new and she has been doing this for quite some time. She had a stroke and was intubated in 1995, which affected her voice and for many years, she has been coughing and the patient has told her children that this is normal for her. She was seen by Speech Therapy and put on nectar thickened liquids. She can do regular consistency solids with extra sauces and gravies. She should not be using straws. Postoperatively, she has had hypotensive episodes. She has received at least 2 L of lactated Ringer's as well as 1 unit of packed red blood cells due to acute postoperative anemia. She seems better today. Today, her hemoglobin is 8.4 and hematocrit 25. She was noted to have poor urine output. There was concern for urine retention and she was straight cathed twice for more than 300cc. A bernstein catheter was placed and her urine output has been improving with the addition of IV fluids. She was quite sedated postoperatively. This was felt secondary to pain medications and muscle relaxants. She is now taking scheduled Tylenol that seems to be working better in terms of keeping her alert and treating some of her pain. Prior to admission, she was independent ambulating with a rolling walker and independent with her ADLs. With physical therapy, today she required a contact guard assist for transferring and ambulating 25 feet with a rolling walker. She did have some dyspnea on exertion. With occupational therapy, she required a moderate assist x2 for lower body dressing and max assist x2 for toileting. PAST MEDICAL HISTORY: 1. Hypertension. 2. Hyperlipidemia. 3. Hemorrhagic stroke secondary to warfarin in 1995. 4. Myocardial infarction x2 with cardiac stent. 5. Depression. 6. Anxiety. 7. History of valve disorder. 8. Hypothyroidism. 9. Status post bilateral total hip replacement. 10. Osteoarthritis affecting right greater than left shoulder. 11. History of intestinal surgery. 12. Status post cataract surgery. 13. Some impaired memory and word finding after her stroke in 1995. CURRENT MEDICATIONS: 1. MiraLAX p.r.n. 2. Sertraline 50 mg daily. 3. Metoprolol XL 25 mg daily. 4. Atorvastatin 10 mg q.h.s. 5. Isosorbide mononitrate ER 30 mg q.h.s. 6. Nitrostat 0.4 mg sublingual q.5 minutes p.r.n. chest pain. 7. Ipratropium bromide 0.06% 2 sprays each nostril t.i.d. p.r.n. The patient states she typically takes this 3 times a day. 8. Levothyroxine 75 mcg daily. 9. Pepcid 40 mg q.h.s. (this is a substitution for Zantac 300 mg q.h.s.) 10. Multivitamin 1 p.o. b.i.d. (this is a substitution for Ocuvite 1 p.o. b.i.d.) 11. Magnesium oxide 400 mg q.h.s. 12. Colace 100 mg b.i.d. 13. Losartan 50 mg daily (at home she uses losartan/hctz 50/12.5 qday). 14. Lovenox 30 mg subcutaneously daily, which Orthopedics note today states to have on hold secondary to acute postoperative anemia. 15. Milk of magnesia p.r.n. 16. Tylenol 975 mg scheduled q.8 hours. 17. Dulcolax p.r.n. ALLERGIES: WARFARIN secondary to hemorrhagic stroke, MORPHINE causes vomiting, PREVACID. FAMILY HISTORY: Significant for cancer, stroke, rheumatoid arthritis, and coronary artery disease. SOCIAL HISTORY: She lives alone but has a daughter that can stay with her after discharge. The daughter will return to working for the school in June, but there are other family members who could be available if she needs help around the clock. Her home is 1 level, there is a ramp to enter. She is a past smoker. No alcohol. If she cannot make decisions for herself, her son, Gil is the healthcare proxy and surrogate decision maker. His phone number is [phone]. REVIEW OF SYSTEMS: See history of present illness and past medical history. She had a bowel movement this morning. She has a Bernstein catheter in to monitor her urine output. Remainder of a 13-system review was completed. No other significant findings. PHYSICAL EXAMINATION GENERAL: Well developed, well nourished, appearing stated age. Mental status: no acute distress. She appears like she is sleeping, but as I am having conversation with her daughter, she interjects and answers questions appropriately. For my physical exam, she wakes up and is appropriately alert and oriented x3. VITAL SIGNS: Temperature 97.9, heart rate 71, respirations 20, oxygenation 94% on room air, blood pressure 137/60. HEENT: Normocephalic, atraumatic. Oropharynx is clear. She has no upper teeth and only few lower teeth. She did not wear dentures. There is 1 hearing aid on the left as the one on the right is not working. NECK: Supple. No lymphadenopathy. LUNGS: She has notable upper respiratory wheezes for inhalation and exhalation. This raspiness with her breathing and speech is normal per the patient and her daughter since her stroke in 1995. HEART: Regular rate and rhythm. ABDOMEN: Active bowel sounds. Soft, nontender, nondistended. EXTREMITIES: No clubbing or cyanosis. There is swelling around her right operative knee with some ecchymosis. There is some swelling in to the foot as well. 2+ pedal pulses. MUSCULOSKELETAL: She has functional range of motion of all of her joints, but some pain limitation in the right shoulder that is more affected by arthritis than the left. NEUROLOGICAL: Upper and lower extremity motor 5/5 bilaterally with normal sensation except pain limited testing of the right hip and knee. LABORATORY DATA: Today, hemoglobin 8.4, hematocrit 25. IMPRESSION: An 88-year-old woman status post right total knee replacement secondary to osteoarthritis. Postoperative course complicated by hypotension, poor urine output, and acute postoperative anemia. She will be admitted to the [facility] so she can return to independent living. PLAN: 1. Right total knee replacement. She will need followup with Dr. Manriquez. Her dressing will be changed regularly. 2. Pain control. Hold on any narcotic medications and Flexeril. She will have scheduled Tylenol and the Cryo Cuff Unit. 3. Acute postoperative anemia. Follow up CBC tomorrow. 4. Postoperative hypotension. Encourage p.o. fluids. IV fluids as necessary. 5. Questionable aspiration. She has a pending chest x-ray from the acute care floor. 6. DVT prophylaxis. Recheck CBC tomorrow and if her H and H is stable, resume Lovenox. Continue with SCDs and TEDs. 7. Coronary artery disease. Continue with Imdur and Lipitor. Her Plavix is on hold while she is on Lovenox. 8. Hypertension. Continue with metoprolol and losartan. 9. Poor urine output and urinary retention. Monitor her urine output, bladder scan as needed. She still has the Bernstein catheter in place, we will determine when this can be discontinued. 10. Dysphagia. Continue with nectar thick liquids. Extra sauces and gravies with regular solids. No straws. 11. Impaired mobility. She will be seen by physical therapy for bed mobility, transfer and gait training using the least restrictive assistive device. 12. Impaired self-care. She will be seen by Occupational Therapy for ADL and IADL training. 13. Advance directives. She is a DNR order. Her son, Gil, is her healthcare proxy if she cannot make her decisions for herself. His phone number is [phone]. 14. Estimated length of stay, 7 to 10 days and return to home. [id number]/[facility] #: [id number] MARGOT
[2018-06-01] MEDS: Magnesium Oxide TAB* 400 MG PO SCH (21:09)
[2018-06-01] MEDS: Docusate CAP* 100 MG PO SCH (21:09)
[2018-06-01] MEDS: Multivitamins/Minerals TAB PO SCH (21:09)
[2018-06-01] MEDS: Atorvastatin* 10 MG TAB PO SCH (21:09)
[2018-06-01] MEDS: Isosorbide Mononitrate ER TAB* 30 MG PO SCH (21:09)
[2018-06-01] MEDS: Famotidine TAB* 20 MG PO SCH (21:09)
[2018-06-01] MEDS: Acetaminophen TAB* 325 MG PO SCH (21:10)
[2018-06-02] MEDS: Acetaminophen TAB* 325 MG PO SCH ×3 (05:54→21:12)
[2018-06-02] MEDS: Levothyroxine TAB* 75 MCG TAB PO SCH (05:55)
[2018-06-02 06:25] LABS: ABS Basophils 0 10^3/ul (0-0.2); ABS Eosinophils 0.3 10^3/ul (0-0.6); ABS Lymphocytes 0.9 10^3/ul (1.0-4.8); ABS Monocytes 0.8 10^3/ul (0-0.8); ABS Neutrophils 5.6 10^3/ul (1.5-7.7); ABS Nucleated RBC 0 10^3/ul; Eosinophil % 4.5 % (0-6); Hematocrit 24 % (35-47); Lymphocyte % 11.8 % (25-47); Mean Corpuscular HGB Conc 34 g/dl (31-36); Mean Corpuscular Hemoglobin 33 pg (27-31); Mean Corpuscular Volume 96 fL (80-97); Mean Platelet Volume 8.1 um3 (7.4-10.4); Nucleated Red Blood Cells % 0; Platelet Count 168 10^3/ul (150-450); Red Blood Count 2.46 10^6/ul (4.00-5.40); Red Cell Distribution Width 14 % (10.5-15); White Blood Count 7.7 10^3/ul (3.5-10.8)
[2018-06-02 06:44] LABS: EGFR Non-African American 63.1 (>60)
[2018-06-02] MEDS: IPRATROPIUM BR 0.06% BOTH NARES SCH ×3 (09:28→21:08)
[2018-06-02] MEDS: Metoprolol Succinate XL TAB* 25 MG PO SCH (09:28)
[2018-06-02] MEDS: Sertraline* 50 MG TAB PO SCH (09:30)
[2018-06-02] MEDS: Losartan TAB* 25 MG PO SCH (09:31)
--- NOTE | 2018-06-02 09:32 | PN ---
Progress Note Date of Service: 06/02/18 Note: SUJATHA ZAMAN was visited. Nursing notes read and reviewed. Therapy evaluations in progress. No chest pain, shortness of breath or abdominal pain. She is tired after shower with OT. Baseline cough. Does not like thickened liquids. Pain tolerable with scheduled tylenol. Current Medications: Active Medications Generic Name Dose Route Start Last Admin Trade Name Freq PRN Reason Stop Dose Admin Acetaminophen 975 mg 06/01/18 22:00 06/02/18 05:54 Tylenol Tab* PO 975 mg 0600,1400,2200 CLAUDIA Administration Al Hydrox/Mg Hydrox/Simethicone 30 ml 06/01/18 11:32 Maalox Plus* PO Q6H PRN INDIGESTION Atorvastatin Calcium 10 mg 06/01/18 21:00 06/01/18 21:09 Lipitor* PO 10 mg BEDTIME CLAUDIA Administration Bisacodyl 10 mg 06/01/18 11:32 Dulcolax Supp* [place] DAILY PRN CONSTIPATION Docusate Sodium 100 mg 06/01/18 21:00 06/01/18 21:09 Colace Cap* PO 100 mg BID CLAUDIA Administration Famotidine 40 mg 06/01/18 21:00 06/01/18 21:09 Pepcid Tab* PO 40 mg BEDTIME CLAUDIA Administration Ipratropium [place] 2 ml 06/01/18 17:00 06/01/18 18:08 Ipratropium [place] BOTH NARES 2 ml TID CLAUDIA Administration Isosorbide Mononitrate 30 mg 06/01/18 21:00 06/01/18 21:09 Imdur Er Tab* PO 30 mg BEDTIME CLAUDIA Administration Levothyroxine Sodium 75 mcg 06/02/18 06:00 06/02/18 05:55 Synthroid Tab* PO 75 mcg DAILY@0600 CLAUDIA Administration Losartan Potassium 50 mg 06/02/18 09:00 Cozaar Tab* PO DAILY CLAUDIA Magnesium Hydroxide 30 ml 06/01/18 11:32 Milk Of Magnesia Liq* PO Q6H PRN CONSTIPATION Magnesium Oxide 400 mg 06/01/18 21:00 06/01/18 21:09 Magox 400 Tab* PO 400 mg BEDTIME CLAUDIA Administration Metoprolol Succinate 25 mg 06/02/18 09:00 Toprol Xl Tab* PO DAILY CLAUDIA Multivitamins/Minerals 1 tab 06/01/18 21:00 06/01/18 21:09 Theragran/Minerals Tab* PO 1 tab BID CLAUDIA Administration Nitroglycerin 0.4 mg 06/01/18 11:44 Nitroglycerin Tab 0.4 Mg* SL Q5M PRN ANGINA Polyethylene Glycol/Electrolytes 17 gm 06/01/18 11:50 Miralax* PO DAILY PRN CONSTIPATION Senna 2 tab 06/01/18 11:32 Senokot Tab* PO BEDTIME PRN CONSTIPATION Sertraline HCl 50 mg 06/02/18 09:00 Zoloft* PO DAILY CLAUDIA Vital Signs: Vital Signs Temp Pulse Resp BP Pulse Ox 98.8 F 79 20 118/57 93 06/02/18 05:55 06/02/18 05:55 06/02/18 05:55 06/02/18 05:55 06/02/18 05:55 Lab Results: Laboratory Results - last 24 hr 06/02/18 06/02/18 06:15 06:15 WBC 7.7 RBC 2.46 L Hgb 8.0 L Hct 24 L MCV 96 MCH 33 H MCHC 34 RDW 14 Plt Count 168 MPV 8.1 Neut % (Auto) 72.7 Lymph % (Auto) 11.8 L [place] % (Auto) 10.4 H Eos % (Auto) 4.5 Baso % (Auto) 0.6 Absolute Neuts (auto) 5.6 Absolute Lymphs (auto) 0.9 L Absolute Monos (auto) 0.8 Absolute Eos (auto) 0.3 Absolute Basos (auto) 0 Absolute Nucleated RBC 0 Nucleated RBC % 0 Sodium 134 L Potassium 4.6 Chloride 102 Carbon Dioxide 28 Anion Gap 4 BUN 24 Creatinine 0.85 Est GFR ( Amer) 76.4 Est GFR (Non-Af Amer) 63.1 BUN/Creatinine Ratio 28.2 H Glucose 108 H Calcium 8.7 Total Bilirubin 0.50 AST 19 ALT 8 Alkaline Phosphatase 52 Total Protein 5.6 L Albumin 2.9 L Globulin 2.7 Albumin/Globulin Ratio 1.1 Chest X-ray 06/01/18 showed hyperinflation and no acute process. Exam: GENERAL: Alert and appropriate. Much more alert than yesterday. LUNGS: Upper respiratory wheezes for inhalation and exhalation as per baseline. HEART: Regular rate and rhythm. ABDOMEN: Active bowel sounds. Soft, nontender, nondistended. EXTREMITIES: Swelling around her right operative knee with some ecchymosis. There is some swelling in to the foot as well. 2+ pedal pulses. NEUROLOGICAL: Lower extremity motor 5/5 bilaterally with normal sensation except pain limited testing of the right hip and knee. Assessment/Plan: IMPRESSION: 88-year-old woman status post right total knee replacement secondary to osteoarthritis. Postoperative course complicated by hypotension, poor urine output and retention and acute postoperative anemia. PLAN: 1. Right total knee replacement. followup with Dr. Manriquez. Her dressing will be changed regularly. 2. Pain control. Hold on any narcotic medications and Flexeril. scheduled Tylenol and the Cryo Cuff Unit. 3. Acute postoperative anemia. Follow up CBC tomorrow as H/H slightly lower and continue to hold Lovenox. 4. Postoperative hypotension. Encourage p.o. fluids. IV fluids as necessary. Ok right now. 5. Chronic cough and dysphagia: CXR negative on 06/01 except hyperinflation. Consider trial of spiriva if regularly SOB/GUZMAN. [place] thick liquids, no straws , extra sauces/gravies. f/u with Speech therapy. 6. DVT prophylaxis. Recheck CBC tomorrow and if her H and H is stable, resume Lovenox. Continue with SCDs and TEDs. 7. Coronary artery disease. Continue with Imdur and Lipitor. Her Plavix is on hold while she is on Lovenox. 8. Hypertension. Continue with metoprolol and losartan. 9. Poor urine output and urinary retention post op days 1-2. Medications may have affected this. Monitor her urine output, bladder scan as needed. PO fluids encouraged. She still has the Bernstein catheter in place. If BP is stable consider d/c bernstein trial tomorrow. 10. PT/OT/Speech 11. Advance directives. She is a DNR order. Her son, Gil, is her healthcare proxy if she cannot make her decisions for herself. His phone number is [phone]. 12. Estimated length of stay: [facility] today. 06/02/18 11:09
[2018-06-02] MEDS: Multivitamins/Minerals TAB PO SCH ×2 (09:33→21:07)
[2018-06-02] MEDS: Docusate CAP* 100 MG PO SCH ×2 (09:38→22:39)
--- NOTE | 2018-06-02 11:47 | PMRUTEAM ---
PMRU: Team Meeting Current Status: Nursing: Current Status Skin Deviations [Bilateral Other Heel] Skin Deviations [Left Elbow] Abrasion Skin Deviations [Right Knee] Incision Skin Deviation Description [ boggy, tender; spenco boots applied, heels off bed Bilateral Heel] Skin Deviation Description [ group leader, healing Left Elbow] Skin Deviation Description [ cryo unit in place Right Knee] Physical Therapy: Current Status Bed Mobility Assistance supervision with leg marketing analytics specialist Transfer Moblility Assistance contact guard with RW Ambulation Assistance contact guard 40ft Ambulation Assistive Devices Rolling Walker Stairs Assistance Not Tested Occupational Therapy: Current Status Upper Body Dressing Supervision Lower Body Dressing Max Asst,2 Person Assist Bathing Min Assist Toileting Max Asst,2 Person Assist Toilet Transfer Min Assist Shower Transfer Min Assist Eating Independent SPEECH THERAPY: [place] thick liquids; regular solid textures with extra sauces and gravies; No straws. Rec Therapy: Current Status Summary of Assessment and Pt. was open to conversation but appeared tired. Clinical Impression Pt. brightened with the first three interests indentifed then became more tired in conversation. Pt.'s daughter in law was in the room and assisted with answering questions. Treatment Goals Pt. will engage in leisure activities while on the unit. Treatment Plan Provide RT services and encourage involvement. Social Work: Current Status Discharge Plan return home with home care svs and family support Potential for Family Training pt's family are attentive and involved. Anticipated Discharge Home Destination Discharge With home care svs and family support Goals: PYSICAL THERAPY: INITIAL GOALS: Independent bed mobility; independent transfers and ambulation using rolling walker 150ft; independent ambulation on ramp; independent car transfers. Occupational Therapy: Initial Goals Goals to be Completed in (Days 10-14 ) Upper Body Bathing Routine Independent Lower Body Bathing Routine Modified Independent with Upper Body Dressing Routine Independent Lower Body Dressing Routine Modified Independent with Toilet Hygeine and Clothing Modified Independent with Management Routine Toilet Transfer Routine Modified Independent with Step-In Shower Transfer Modified Independent with Routine Tub Transfer Routine Modified Independent with Functional Transfers for ADL Modified Independent with Grooming Routine Independent Feeding Routine Independent Light Housekeeping Tasks Modified Independent with Speech: Goals Speech Goal 1 Swallowing Speech Evaluation Status Goal Regular, [place] (No Straws) 1 Goal 1 Comments Shipping Specialist Goal: The patient will safely tolerate the least restrictive diet consistencies without clinical s/ s of penetration and/or aspiration. Short Term Goals: 1. The patient will successfully completed lingual exercises with 95% accuracy, minimal cues. 2. The patient will successfully complete pharyngeal strengthening and airway protection exercises with 95% accuracy, minimal cues. 3. The patient will safely tolerate 20/20 sips of thin liquids via sip by cup without clinical s/s of penetration and/or aspiration, independent use of compensatory strategies as needed. 4. Videofluoroscopy, as deemed appropriate and ordered by MD's. Social Work: Goals Discharge Plan return home with home care svs and family support Potential for Family Training pt's family are attentive and involved. Anticipated Discharge Home Destination Discharge With home care svs and family support Care Plan: Medication self management Educate on thickened liquids if needed Educate and enforce appropriate hydration to prevent UTI and hypotension Monitor CBC for need of transfusion and appropriateness to restart DVT ppx Family training to support as needed Medicine Note: Length of Stay: [10 days] Anticipated Discharge Destination: Home Tentative Discharge Date: [06/12/18] Discharged to: [home with family support]
[2018-06-02] MEDS: Atorvastatin* 10 MG TAB PO SCH (21:07)
[2018-06-02] MEDS: Isosorbide Mononitrate ER TAB* 30 MG PO SCH (21:07)
[2018-06-02] MEDS: Famotidine TAB* 20 MG PO SCH (21:08)
[2018-06-02] MEDS: Magnesium Oxide TAB* 400 MG PO SCH (21:08)
[2018-06-03] MEDS: Acetaminophen TAB* 325 MG PO SCH ×3 (05:36→20:47)
[2018-06-03] MEDS: Levothyroxine TAB* 75 MCG TAB PO SCH (05:36)
[2018-06-03 06:24] LABS: ABS Basophils 0 10^3/ul (0-0.2); ABS Eosinophils 0.4 10^3/ul (0-0.6); ABS Lymphocytes 0.9 10^3/ul (1.0-4.8); ABS Monocytes 0.8 10^3/ul (0-0.8); ABS Neutrophils 4.4 10^3/ul (1.5-7.7); ABS Nucleated RBC 0 10^3/ul; Eosinophil % 5.8 % (0-6); Hematocrit 23 % (35-47); Hemoglobin 7.9 g/dl (12.0-16.0); Lymphocyte % 13.3 % (25-47); Mean Corpuscular HGB Conc 34 g/dl (31-36); Mean Corpuscular Hemoglobin 33 pg (27-31); Mean Corpuscular Volume 96 fL (80-97); Nucleated Red Blood Cells % 0; Platelet Count 190 10^3/ul (150-450); Red Blood Count 2.41 10^6/ul (4.00-5.40); Red Cell Distribution Width 14 % (10.5-15); White Blood Count 6.5 10^3/ul (3.5-10.8)
[2018-06-03] MEDS: IPRATROPIUM BR 0.06% BOTH NARES SCH ×3 (09:32→20:53)
[2018-06-03] MEDS: Losartan TAB* 25 MG PO SCH (09:33)
[2018-06-03] MEDS: Multivitamins/Minerals TAB PO SCH ×2 (09:33→20:49)
[2018-06-03] MEDS: Sertraline* 50 MG TAB PO SCH (09:33)
[2018-06-03] MEDS: Metoprolol Succinate XL TAB* 25 MG PO SCH (09:33)
[2018-06-03] MEDS: Docusate CAP* 100 MG PO SCH ×2 (09:35→20:51)
[2018-06-03] MEDS ORDERED: diPHENhydraMINE PO* 25 MG PO ONE (09:55)
--- NOTE | 2018-06-03 10:04 | PN ---
Progress Note Date of Service: 06/03/18 Note: SUJATHA ZAMAN was visited. Nursing and therapy notes read and reviewed. No chest pain, shortness of breath or abdominal pain. Would like to get off thickened liquids. Current Medications: Active Medications Generic Name Dose Route Start Last Admin Trade Name Freq PRN Reason Stop Dose Admin Acetaminophen 975 mg 06/01/18 22:00 06/03/18 05:36 Tylenol Tab* PO 975 mg 0600,1400,2200 CLAUDIA Administration Al Hydrox/Mg Hydrox/Simethicone 30 ml 06/01/18 11:32 Maalox Plus* PO Q6H PRN INDIGESTION Atorvastatin Calcium 10 mg 06/01/18 21:00 06/02/18 21:07 Lipitor* PO 10 mg BEDTIME CLAUDIA Administration Bisacodyl 10 mg 06/01/18 11:32 Dulcolax Supp* AL DAILY PRN CONSTIPATION Diphenhydramine HCl 25 mg 06/03/18 09:55 Benadryl Po* PO 06/03/18 09:56 ONCE ONE Docusate Sodium 100 mg 06/01/18 21:00 06/03/18 09:35 Colace Cap* PO Not Given BID CLAUDIA Famotidine 40 mg 06/01/18 21:00 06/02/18 21:08 Pepcid Tab* PO 40 mg BEDTIME CLAUDIA Administration Heparin Sodium (Porcine) 5,000 units 06/03/18 10:00 Heparin Vial(*) SUBCUT Q12HR CLAUDIA Ipratropium [place] 2 ml 06/01/18 17:00 06/03/18 09:32 Ipratropium [place] BOTH NARES 2 ml TID CLAUDIA Administration Isosorbide Mononitrate 30 mg 06/01/18 21:00 06/02/18 21:07 Imdur Er Tab* PO 30 mg BEDTIME CLAUDIA Administration Levothyroxine Sodium 75 mcg 06/02/18 06:00 06/03/18 05:36 Synthroid Tab* PO 75 mcg DAILY@0600 CLAUDIA Administration Losartan Potassium 50 mg 06/02/18 09:00 06/03/18 09:33 Cozaar Tab* PO 50 mg DAILY CLAUDIA Administration Magnesium Hydroxide 30 ml 06/01/18 11:32 Milk Of Magnesia Liq* PO Q6H PRN CONSTIPATION Magnesium Oxide 400 mg 06/01/18 21:00 06/02/18 21:08 Magox 400 Tab* PO 400 mg BEDTIME CLAUDIA Administration Metoprolol Succinate 25 mg 06/02/18 09:00 06/03/18 09:33 Toprol Xl Tab* PO 25 mg DAILY CLAUDIA Administration Multivitamins/Minerals 1 tab 06/01/18 21:00 06/03/18 09:33 Theragran/Minerals Tab* PO 1 tab BID CLAUDIA Administration Nitroglycerin 0.4 mg 06/01/18 11:44 Nitroglycerin Tab 0.4 Mg* SL Q5M PRN ANGINA Polyethylene Glycol/Electrolytes 17 gm 06/01/18 11:50 Miralax* PO DAILY PRN CONSTIPATION Senna 2 tab 06/01/18 11:32 Senokot Tab* PO BEDTIME PRN CONSTIPATION Sertraline HCl 50 mg 06/02/18 09:00 06/03/18 09:33 Zoloft* PO 50 mg DAILY CLAUDIA Administration Vital Signs: Vital Signs Temp Pulse Resp BP Pulse Ox 98.2 F 76 20 133/61 93 06/03/18 05:03 06/03/18 05:03 06/03/18 05:03 06/03/18 05:03 06/03/18 05:03 Lab Results: Laboratory Results - last 24 hr 06/03/18 06:02 WBC 6.5 RBC 2.41 L Hgb 7.9 L Hct 23 L MCV 96 MCH 33 H MCHC 34 RDW 14 Plt Count 190 MPV 8.0 Neut % (Auto) 67.6 Lymph % (Auto) 13.3 L [place] % (Auto) 12.6 H Eos % (Auto) 5.8 Baso % (Auto) 0.7 Absolute Neuts (auto) 4.4 Absolute Lymphs (auto) 0.9 L Absolute Monos (auto) 0.8 Absolute Eos (auto) 0.4 Absolute Basos (auto) 0 Absolute Nucleated RBC 0 Nucleated RBC % 0 Exam: GENERAL: Alert and appropriate. LUNGS: clear bilaterally. HEART: Regular rate and rhythm. ABDOMEN: Active bowel sounds. Soft, non-tender, non-distended. EXTREMITIES: Swelling around her right operative knee with ecchymosis in the leg and ankle. Sutures c/d/i. Right pedal edema. 2+ pedal pulses. NEUROLOGICAL: Lower extremity motor 5/5 bilaterally with normal sensation except pain limited testing of the right hip and knee. Assessment/Plan: IMPRESSION: 88-year-old woman status post right total knee replacement secondary to osteoarthritis. Postoperative course complicated by hypotension, poor urine output and retention and acute postoperative anemia. PLAN: 1. Right total knee replacement. followup with Dr. Manriquez. Her dressing will be changed regularly. 2. Pain control. Hold on any narcotic medications and Flexeril. scheduled Tylenol and the Cryo Cuff Unit. 3. Acute postoperative anemia. Lovenox has been on hold since 06/02. H/H slightly lower today and given h/o CAD will transfuse today. I d/w her and her son risks/benefits. Consent signed and she received transfusion pamphlet. 2u prbcs today. Pretreat with benadryl (she already has tylenol on board). CBC in am. 4. Postoperative hypotension. Encourage p.o. fluids. Has been stable since rehab admit. 5. Chronic cough and dysphagia: CXR negative on 06/01 except hyperinflation. Consider trial of spiriva if regularly SOB/GUZMAN. [place] thick liquids, no straws , extra sauces/gravies. f/u with Speech therapy. 6. DVT prophylaxis. Lovenox on hold (last dose was 06/01 on [facility]). I will start sc heparin Q12h today. Once H/H stabilized d/w Dr. Manriquez restart Lovenox for home vs just restart regular Plavix and baby ASA. Continue with SCDs and TEDs. 7. Coronary artery disease. Continue with Imdur and Lipitor. Her Plavix and baby ASA are on hold while she is potentially on Lovenox. 8. Hypertension. Continue with metoprolol and losartan. 9. Poor urine output and urinary retention post op days 1-2. Medications may have affected this. BP has been stable. D/C bernstein today. Bladder scan if no void in 8hr. 10. PT/OT/Speech 11. Advance directives. She is a DNR order. Her son, Gil, is her healthcare proxy if she cannot make her decisions for herself. His phone number is [phone]. 12. Estimated length of stay: Anticipate d/c around 06/12/18 06/03/18 09:58
[2018-06-03] MEDS: Heparin VIAL(*) 5000 UNITS/ML VIAL (FIVE THOUSAND) SUBCUT SCH ×2 (10:37→20:52)
[2018-06-03] MEDS: Isosorbide Mononitrate ER TAB* 30 MG PO SCH (20:48)
[2018-06-03] MEDS: Atorvastatin* 10 MG TAB PO SCH (20:49)
[2018-06-03] MEDS: Magnesium Oxide TAB* 400 MG PO SCH (20:50)
[2018-06-03] MEDS: Famotidine TAB* 20 MG PO SCH (20:50)
[2018-06-04] MEDS: Acetaminophen TAB* 325 MG PO SCH ×3 (05:30→21:08)
[2018-06-04] MEDS: Levothyroxine TAB* 75 MCG TAB PO SCH (05:30)
[2018-06-04 05:51] LABS: ABS Basophils 0 10^3/ul (0-0.2); ABS Eosinophils 0.3 10^3/ul (0-0.6); ABS Monocytes 1.2 10^3/ul (0-0.8); ABS Neutrophils 6.4 10^3/ul (1.5-7.7); ABS Nucleated RBC 0 10^3/ul; Eosinophil % 3.8 % (0-6); Hematocrit 29 % (35-47); Lymphocyte % 11.3 % (25-47); Mean Corpuscular HGB Conc 34 g/dl (31-36); Mean Corpuscular Hemoglobin 31 pg (27-31); Mean Corpuscular Volume 91 fL (80-97); Mean Platelet Volume 7.7 um3 (7.4-10.4); Nucleated Red Blood Cells % 0; Platelet Count 210 10^3/ul (150-450); Red Blood Count 3.21 10^6/ul (4.00-5.40); Red Cell Distribution Width 17 % (10.5-15)
[2018-06-04] MEDS: Heparin VIAL(*) 5000 UNITS/ML VIAL (FIVE THOUSAND) SUBCUT SCH ×2 (09:06→21:07)
[2018-06-04] MEDS: IPRATROPIUM BR 0.06% BOTH NARES SCH ×3 (09:06→21:06)
[2018-06-04] MEDS: Docusate CAP* 100 MG PO SCH ×2 (09:07→21:07)
[2018-06-04] MEDS: Multivitamins/Minerals TAB PO SCH ×2 (09:07→21:06)
[2018-06-04] MEDS: Losartan TAB* 25 MG PO SCH (09:07)
[2018-06-04] MEDS: Metoprolol Succinate XL TAB* 25 MG PO SCH (09:07)
[2018-06-04] MEDS: Sertraline* 50 MG TAB PO SCH (09:07)
--- NOTE | 2018-06-04 17:15 | PN ---
Progress Note Date of Service: 06/04/18 Note: SUJATHA ZAMAN was visited. Therapy notes read and reviewed. Her Hb was 10 today. She is off Lovenox. Will resume ASA for tomorrow and Plavix on Monday if counts stable Current Medications: Active Medications Generic Name Dose Route Start Last Admin Trade Name Freq PRN Reason Stop Dose Admin Acetaminophen 975 mg 06/01/18 22:00 06/04/18 14:38 Tylenol Tab* PO 975 mg 0600,1400,2200 CLAUDIA Administration Al Hydrox/Mg Hydrox/Simethicone 30 ml 06/01/18 11:32 Maalox Plus* PO Q6H PRN INDIGESTION Aspirin 81 mg 06/05/18 09:00 Aspirin Ec Tab* PO DAILY CLAUDIA Atorvastatin Calcium 10 mg 06/01/18 21:00 06/03/18 20:49 Lipitor* PO 10 mg BEDTIME CLAUDIA Administration Bisacodyl 10 mg 06/01/18 11:32 Dulcolax Supp* NM DAILY PRN CONSTIPATION Docusate Sodium 100 mg 06/01/18 21:00 06/04/18 09:07 Colace Cap* PO 100 mg BID CLAUDIA Administration Famotidine 40 mg 06/01/18 21:00 06/03/18 20:50 Pepcid Tab* PO 40 mg BEDTIME CLAUDIA Administration Heparin Sodium (Porcine) 5,000 units 06/03/18 10:00 06/04/18 09:06 Heparin Vial(*) SUBCUT 5,000 units Q12HR CLAUDIA Administration Ipratropium [place] 2 ml 06/01/18 17:00 06/04/18 14:36 Ipratropium [place] BOTH NARES 2 ml TID CLAUDIA Administration Isosorbide Mononitrate 30 mg 06/01/18 21:00 06/03/18 20:48 Imdur Er Tab* PO 30 mg BEDTIME CLAUDIA Administration Levothyroxine Sodium 75 mcg 06/02/18 06:00 06/04/18 05:30 Synthroid Tab* PO 75 mcg DAILY@0600 CLAUDIA Administration Losartan Potassium 50 mg 06/02/18 09:00 06/04/18 09:07 Cozaar Tab* PO 50 mg DAILY CLAUDIA Administration Magnesium Hydroxide 30 ml 06/01/18 11:32 Milk Of Magnesia Liq* PO Q6H PRN CONSTIPATION Magnesium Oxide 400 mg 06/01/18 21:00 08/19/18 20:50 Magox 400 Tab* PO 400 mg BEDTIME CLAUDIA Administration Metoprolol Succinate 25 mg 06/02/18 09:00 06/04/18 09:07 Toprol Xl Tab* PO 25 mg DAILY CLAUDIA Administration Multivitamins/Minerals 1 tab 06/01/18 21:00 06/04/18 09:07 Theragran/Minerals Tab* PO 1 tab BID CLAUDIA Administration Nitroglycerin 0.4 mg 06/01/18 11:44 Nitroglycerin Tab 0.4 Mg* SL Q5M PRN ANGINA Polyethylene Glycol/Electrolytes 17 gm 06/01/18 11:50 Miralax* PO DAILY PRN CONSTIPATION Senna 2 tab 06/01/18 11:32 Senokot Tab* PO BEDTIME PRN CONSTIPATION Sertraline HCl 50 mg 06/02/18 09:00 06/04/18 09:07 Zoloft* PO 50 mg DAILY CLAUDIA Administration Vital Signs: Vital Signs Temp Pulse Resp BP Pulse Ox 98.5 F 73 22 135/56 95 06/04/18 16:25 06/04/18 16:25 06/04/18 16:25 06/04/18 16:25 06/04/18 16:25 Lab Results: Laboratory Results - last 24 hr 06/03/18 06/04/18 06:02 05:36 WBC 9.0 RBC 3.21 L Hgb 10.0 L Hct 29 L MCV 91 MCH 31 MCHC 34 RDW 17 H Plt Count 210 MPV 7.7 Neut % (Auto) 71.4 Lymph % (Auto) 11.3 L [place] % (Auto) 13.0 H Eos % (Auto) 3.8 Baso % (Auto) 0.5 Absolute Neuts (auto) 6.4 Absolute Lymphs (auto) 1.0 Absolute Monos (auto) 1.2 H Absolute Eos (auto) 0.3 Absolute Basos (auto) 0 Absolute Nucleated RBC 0 Nucleated RBC % 0 Blood Type A Negative Antibody Screen Negative Crossmatch See Detail Exam: GENERAL: Alert and appropriate. LUNGS: clear bilaterally. HEART: Regular rate and rhythm. ABDOMEN: Active bowel sounds. Soft, non-tender, non-distended. EXTREMITIES: Some swelling around her right knee. Sutures C/D/I. . NEUROLOGICAL: Lower extremity motor 5/5 bilaterally with normal sensation except pain limited testing of the right hip and knee. Assessment/Plan: 1. Right total knee replacement: followup with Dr. Manriquez. Her dressing will be changed regularly. WBAT. PT/OT 2. Pain control: Scheduled Tylenol and the Cryo Cuff Unit. 3. Acute postoperative anemia: Lovenox stopped. Transfused yesterday. CBC Monday. 4. Postoperative hypotension. Encourage p.o. fluids. Has been stable since rehab admit. 5. Chronic cough and dysphagia: CXR negative on 06/01 except hyperinflation. [place] thick liquids, no straws, extra sauces/gravies. f/u with Speech therapy. 6. DVT prophylaxis. Heparin S/Q. Continue with SCDs and TEDs. 7. Coronary artery disease. Continue with Imdur and Lipitor. Resume ASA. 8. Hypertension: Continue with metoprolol and losartan. 9. Advance directives: DNR. Her son, Gil, is her healthcare proxy. His phone number is [phone]. 10. Estimated length of stay: Anticipate d/c around 06/12/18 06/04/18 17:16
[2018-06-04] MEDS: Famotidine TAB* 20 MG PO SCH (21:06)
[2018-06-04] MEDS: Isosorbide Mononitrate ER TAB* 30 MG PO SCH (21:06)
[2018-06-04] MEDS: Atorvastatin* 10 MG TAB PO SCH (21:06)
[2018-06-04] MEDS: Magnesium Oxide TAB* 400 MG PO SCH (21:07)
[2018-06-05] MEDS: Levothyroxine TAB* 75 MCG TAB PO SCH (05:45)
[2018-06-05] MEDS: Acetaminophen TAB* 325 MG PO SCH ×3 (05:45→21:01)
[2018-06-05] MEDS: IPRATROPIUM BR 0.06% BOTH NARES SCH ×3 (08:23→20:58)
[2018-06-05] MEDS: Multivitamins/Minerals TAB PO SCH ×2 (08:24→21:00)
[2018-06-05] MEDS: Aspirin EC TAB* 81 MG TAB.EC PO SCH (08:24)
[2018-06-05] MEDS: Metoprolol Succinate XL TAB* 25 MG PO SCH (08:25)
[2018-06-05] MEDS: Sertraline* 50 MG TAB PO SCH (08:25)
[2018-06-05] MEDS: Losartan TAB* 25 MG PO SCH (08:25)
[2018-06-05] MEDS: Docusate CAP* 100 MG PO SCH ×2 (08:25→21:00)
[2018-06-05] MEDS: Heparin VIAL(*) 5000 UNITS/ML VIAL (FIVE THOUSAND) SUBCUT SCH ×2 (08:26→20:59)
--- NOTE | 2018-06-05 12:41 | PMRUTEAM ---
PMRU: Team Meeting Current Status: Nursing: Current Status Skin Deviations [Bilateral Other Heel] Skin Deviations [Left Elbow] Abrasion Skin Deviations [Right Knee] Blister,Incision Skin Deviation Description [ red and blanchable, spanko boots at night Bilateral Heel] Skin Deviation Description [ healing Left Elbow] Skin Deviation Description [ nonstageable blister, intact Right Knee] Bladder Current Status 7 Bowel Current Status 6 Nutrition Current Status Independent Medication Current Status Needs reinforcement of anticoagulant prior to discharge Physical Therapy: Current Status Bed Mobility Assistance Not Tested Transfer Moblility Assistance Supervision,Contact Guard Assist Transfer/Bed Mobility Rolling Walker Recommended Devices Ambulation Assistance Supervision Ambulation Assistive Devices Rolling Walker Number of Feet Patient 65' and 75' Ambulated Stairs Assistance Supervision Stairs Recommended Devices Two Rails Number of Stairs 10 Occupational Therapy: Current Status Upper Body Dressing Supervision Lower Body Dressing Supervision Bathing Supervision Toileting Supervision Toilet Transfer Supervision Shower Transfer Supervision Eating Independent Rec Therapy: Current Status Summary of Assessment and RT assessment complete and pt. is aware of RT Clinical Impression services. Pt. has numerous visitors during recreation time and has been playing cards with her family. Treatment Goals Pt. will engage in leisure activities while on the unit. Treatment Plan Provide RT services and encourage involvement. Social Work: Current Status Discharge Plan return home with home care svs and family support Potential for Family Training pt's family are involved and supportive Anticipated Discharge Home Destination Discharge With home care svs and family support Nutrition: Current Status Monitoring has been eating 90-100% of regular diet x 3 days; however, dislikes nectar-thick liquids. Will follow FUEL QUALITY TECH reeval notes and recommendations. 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 Full reassessment planned . Speech: Current Status Assessment Patient progressing slowly, as expected. Continue skilled speech-language pathology services for swallowing dysfunction. Speech Current Status Goal 1 Regular, [place] (No Straws) Goals: Physical Therapy: Updated Goals Transfer/Bed Mobility Rolling Walker Recommended Devices Occupational Therapy: Initial Goals Goals to be Completed in (Days 10-14 ) Upper Body Bathing Routine Independent Lower Body Bathing Routine Modified Independent with Upper Body Dressing Routine Independent Lower Body Dressing Routine Modified Independent with Toilet Hygeine and Clothing Modified Independent with Management Routine Toilet Transfer Routine Modified Independent with Step-In Shower Transfer Modified Independent with Routine Tub Transfer Routine Modified Independent with Functional Transfers for ADL Modified Independent with Grooming Routine Independent Feeding Routine Independent Light Housekeeping Tasks Modified Independent with Nursing: Goals Bladder Goal 7 Bowel Goal 6 Nutrition Goal Independent Medication Goal Independent Nutrition: Goals Intervention Goals to be determined Speech: Goals Speech Goal 1 Swallowing Speech Evaluation Status Goal Regular, [place] (No Straws) 1 Speech Current Status Goal 1 Regular, [place] (No Straws) Goal 1 Comments Detention Goal: The patient will safely tolerate the least restrictive diet consistencies without clinical s/ s of penetration and/or aspiration. Short Term Goals: 1. The patient will successfully completed lingual exercises with 95% accuracy, minimal cues. 2. The patient will successfully complete pharyngeal strengthening and airway protection exercises with 95% accuracy, minimal cues. 3. The patient will safely tolerate 20/20 sips of thin liquids via sip by cup without clinical s/s of penetration and/or aspiration, independent use of compensatory strategies as needed. Status: *Patient drank 6 ounces of ice water and 6 ounces of hot tea, unaltered and via small sip by cup. Patient with one noted instance of mild coughing following a swallow and three noted instances of throat clearing following a swallow. Vocal quality remained clear. Patient may benefit from an upgrade to thin liquids, no straws and/or objective instrumental assessment (videofluoroscopy) to comprehensively assess the oropharyngeal swallow and determine the safest possible solid and liquid consistencies. Communication written in MD communication book and relayed to Deneen Ma. May discuss 06/05/18 with MD and PMRU Team at Intedisciplinary Team Meeting. Objective ongoing. 4. Videofluoroscopy, as deemed appropriate and ordered by MD's. Status: Ongoing; awaiting MD decision and order, if deemed appropriate. Social Work: Goals Discharge Plan return home with home care svs and family support Potential for Family Training pt's family are involved and supportive Anticipated Discharge Home Destination Discharge With home care svs and family support Care Plan: Care Plan ADL's - Improve/Maintain Start: 06/02/18 01:02 Freq: DAILY Status: Active Target: Protocol: Activity Type Activity Date Activity User E-Sign Co-Sign Detail Recorded Client Recorded Date Recorded By Document 06/04/18 10:54 [id number] [id number] 06/04/18 10:55 [id number] 06/04/18 10:54 PMRU Outcome: ADL's/ADL Transfers Orders/Interventions Occupational Therapy Evaluation & Treatment Device Yes Patient to receive OT 5x/wk for 60-120 Therex min/day Self Care Management Group Therapy Neuromuscular ReEducation UE/LE ADL's with Assist Yes ADL Transfers with Assist Yes Toileting: Transfers,Clothing Management Yes ,Hygeine w/Assist Light Kitchen/Laundry w/Assist Yes Progression Toward Outcome/Goals Progressing Outcome/Goals Met Pt demonstrates increased independence with morning ADL routine this date. Pt demonstrates inreased balance in standing unsupported but continues to require steadying assist. Cardiovascular- Improve/Maintain Start: 06/02/18 01:02 Freq: QSHIFT Status: Active Target: Protocol: Activity Type Activity Date Activity User E-Sign Co-Sign Detail Recorded Client Recorded Date Recorded By Document 06/05/18 08:00 [id number] 06/05/18 09:34 [id number] 06/05/18 08:00 PMRU Outcome: Cardiovascular Vital Signs q Shift for 48hrs Then BID Yes Daily Weight Ordered No Current Cardiovascular Outcome/Goal Maintain/ Achieve Baseline HR, BP , Perfusion Free of Abnormal Cardiac Symptoms Progression Toward Outcome/Goal Progressing Communication-Improve/Maintain Start: 06/02/18 09:49 Freq: DAILY Status: Active Target: Protocol: Activity Type Activity Date Activity User E-Sign Co-Sign Detail Recorded Client Recorded Date Recorded By Document 06/04/18 19:35 [facility] [id number] 06/04/18 19:35 KB 06/04/18 19:35 PMRU Outcome: Communication/Cognitive Status Outcome/Goals Use Comm Tools/ Devices Other Other Outcomes/Goals Detention Goal: The patient will safely tolerate the least restrictive diet consistencies without clinical s/s of penetration and/or aspiration. Short Term Goals: 1. The patient will successfully completed lingual exercises with 95% accuracy, minimal cues. 2. The patient will successfully complete pharyngeal strengthening and airway protection exercises with 95% accuracy, minimal cues. 3. The patient will safely tolerate 20/20 sips of thin liquids via sip by cup without clinical s/s of penetration and/or aspiration, independent use of compensatory strategies as needed. 4. Videofluoroscop y, as deemed appropriate and ordered by MD' s. Progression Toward Outcomes/Goals Progressing DVT Prophylaxis- Improve/Maintain Start: 06/02/18 01:02 Freq: QSHIFT Status: Active Target: Protocol: Activity Type Activity Date Activity User E-Sign Co-Sign Detail Recorded Client Recorded Date Recorded By Document 06/05/18 08:00 [id number] 06/05/18 09:34 [id number] 06/05/18 08:00 PMRU Outcome: DVT Prophylaxis Outcome/Goals Remains Free of DVT Complies with DVT Prophylaxis /Treatment TEDS Stockings on Every AM, Off at HS Progression Toward Outcome/Goals Progressing Outcome/Goals Met TEDS Stockings on Every AM, Off at HS Outcome/Goals Met Comment TEDs on during day, SCDs at night Discharge Planning - Improve/Maintain Start: 06/02/18 01:02 Freq: DAILY Status: Active Target: Protocol: Activity Type Activity Date Activity User E-Sign Co-Sign Detail Recorded Client Recorded Date Recorded By Document 06/05/18 01:00 [id number] 06/05/18 05:19 [id number] 06/05/18 01:00 PMRU Outcome: Discharge Planning Update Patient Family No Outcome/Goals Demonstrates Understanding of Discharge Plan Progression Toward Outcome/Goals Progressing Education-Improve/Maintain Start: 06/02/18 01:02 Freq: QSHIFT Status: Active Target: Protocol: Activity Type Activity Date Activity User E-Sign Co-Sign Detail Recorded Client Recorded Date Recorded By Document 06/05/18 08:00 [id number] 06/05/18 09:34 [id number] 06/05/18 08:00 PMRU Outcome: Education Outcome/Goals Demonstrate/ Verbalize Understanding of Written Discharge Instructions Demonstrates Skills Encourage Questions Progression Toward Outcome/Goals Progressing /GI-Improve/Maintain Start: 06/02/18 01:02 Freq: QSHIFT Status: Active Target: Protocol: Activity Type Activity Date Activity User E-Sign Co-Sign Detail Recorded Client Recorded Date Recorded By Document 06/05/18 08:00 [id number] 06/05/18 09:34 [id number] 06/05/18 08:00 PMRU Outcome: Genitourinary/ Gastrointestinal Genitourinary- Outcome/Goals Maintain/ Achieve Urinary Continence Gastrointestinal-Outcome/Goals Maintain/ Achieve Bowel Regularity in Accordance with Pt's Baseline Prevent Constipation Progression Toward Outcome/Goals - Progressing Progression Toward Outcome/Goals - GI Progressing Mobility- Improve/Maintain Start: 06/02/18 01:02 Freq: DAILY Status: Active Target: Protocol: Activity Type Activity Date Activity User E-Sign Co-Sign Detail Recorded Client Recorded Date Recorded By Document 06/02/18 13:41 [id number] 06/02/18 13:42 [id number] 06/02/18 13:41 PMRU Outcome: Mobility Physical Therapy Evaluation and Yes Treatment Activity OOB with Assistance Yes WBAT Yes Device Yes: FWW Assistance Yes: CGA Patient to be seen 5x/wk for 60-120 min/ Therex day for: Mobility Training Gait Training W/C Mobility Balance Outcome/Goals Maintain/ Achieve Baseline Mobility Status Improve Mobility Status Demonstrates Proper Use of Assistive Devices Free from Complications of Immobility Bed Mobility Yes: Ind Transfers Yes: Mod I with walker Gait x ft Yes: Mod I with walker x150ft Up/Down Stairs Yes: CGA with rails x6 steps With HEP Yes: Ind Neurological- Improve/Maintain Start: 06/02/18 01:02 Freq: QSHIFT Status: Active Target: Protocol: Activity Type Activity Date Activity User E-Sign Co-Sign Detail Recorded Client Recorded Date Recorded By Document 06/05/18 08:00 [id number] 06/05/18 09:34 [id number] 06/05/18 08:00 PMRU Outcome: Neurological Weakness/Aphasia Weakness Right Side Outcome/Goals Maintain/ Achieve Baseline Neurological Status Improve Neurological Status Maintain/ Improve Strength/ROM Progression Toward Outcome/Goals Progressing Pain/Comfort- Improve/Maintain Start: 06/02/18 01:02 Freq: QSHIFT Status: Active Target: Protocol: Activity Type Activity Date Activity User E-Sign Co-Sign Detail Recorded Client Recorded Date Recorded By Document 06/05/18 08:00 [id number] 06/05/18 09:34 [id number] 06/05/18 08:00 PMRU Outcome: Pain/Comfort Outcome/Goals Demonstrates Knowledge and Use of Available Comfort Measures Achieves Acceptable Comfort/Pain Level as Determined by Patient/Condit Maintain Comfort Level Allowing Patient to Fully Participate in Rehab Progression Toward Outcome/Goals Progressing Respiratory - Improve/Maintain Start: 06/02/18 01:02 Freq: QSHIFT Status: Active Target: Protocol: Activity Type Activity Date Activity User E-Sign Co-Sign Detail Recorded Client Recorded Date Recorded By Document 06/05/18 08:00 [id number] 06/05/18 09:34 [id number] 06/05/18 08:00 PMRU Outcome: Respiratory Does Patient Have a Trach No Outcome/Goals Maintain/ Improve Activity Tolerance Remain Aspiration Free Progression Toward Outcome/Goals Progressing Safety- Improve/Maintain Start: 06/02/18 01:02 Freq: QSHIFT Status: Active Target: Protocol: Activity Type Activity Date Activity User E-Sign Co-Sign Detail Recorded Client Recorded Date Recorded By Document 06/05/18 08:00 [id number] [id number] 06/05/18 09:34 [id number] 06/05/18 08:00 PMRU Outcome: Safety Outcome/Goals Remain Free of Injury or Harm Prevent Falls/ Injury Progression Toward Outcome/Goals Progressing Outcome/Goals Met Comment BA armed Skin- Improve/Maintain Start: 06/02/18 01:02 Freq: QSHIFT Status: Active Target: Protocol: Activity Type Activity Date Activity User E-Sign Co-Sign Detail Recorded Client Recorded Date Recorded By Document 06/05/18 08:00 [id number] 06/05/18 09:34 [id number] 06/05/18 08:00 PMRU Outcome: Skin Skin Risk Level High Skin Orders Spenco Boots Turn/Position q2hr While in Bed Outcome/Goals Maintain/ Improve Skin Intergrity Surgical Incisions Healing Progression Toward Outcome/Goals Progressing Medicine Note: Length of Stay: 3 days Anticipated Discharge Destination: Home Tentative Discharge Date: 06/08/18 Discharged to: Home
--- NOTE | 2018-06-05 17:50 | PN ---
Progress Note Date of Service: 06/05/18 Note: SUJATHA ZAMAN was visited. Therapy notes read and reviewed. She was discussed in interdisciplinary team rounds. She has continued to make gains and she can likely go home at week's end. Off opioids. Swallow is better but CNA HHA wants to do a video to see what she can safely handle Current Medications: Active Medications Generic Name Dose Route Start Last Admin Trade Name Freq PRN Reason Stop Dose Admin Acetaminophen 975 mg 06/01/18 22:00 06/05/18 14:18 Tylenol Tab* PO 975 mg 0600,1400,2200 CLAUDIA Administration Al Hydrox/Mg Hydrox/Simethicone 30 ml 06/01/18 11:32 Maalox Plus* PO Q6H PRN INDIGESTION Aspirin 81 mg 06/05/18 09:00 06/05/18 08:24 Aspirin Ec Tab* PO 81 mg DAILY CLAUDIA Administration Atorvastatin Calcium 10 mg 06/01/18 21:00 06/04/18 21:06 Lipitor* PO 10 mg BEDTIME CLAUDIA Administration Bisacodyl 10 mg 06/01/18 11:32 Dulcolax Supp* [place] DAILY PRN CONSTIPATION Clopidogrel Bisulfate 75 mg 06/06/18 09:00 Plavix Tab* PO DAILY CLAUDIA Docusate Sodium 100 mg 06/01/18 21:00 06/05/18 08:25 Colace Cap* PO 100 mg BID CLAUDIA Administration Famotidine 40 mg 06/01/18 21:00 06/04/18 21:06 Pepcid Tab* PO 40 mg BEDTIME CLAUDIA Administration Heparin Sodium (Porcine) 5,000 units 06/03/18 10:00 06/05/18 08:26 Heparin Vial(*) SUBCUT 5,000 units Q12HR CLAUDIA Administration Ipratropium [place] 2 ml 06/01/18 17:00 06/05/18 14:18 Ipratropium [place] BOTH NARES 2 ml TID CLAUDIA Administration Isosorbide Mononitrate 30 mg 06/01/18 21:00 06/04/18 21:06 Imdur Er Tab* PO 30 mg BEDTIME CLAUDIA Administration Levothyroxine Sodium 75 mcg 06/02/18 06:00 06/05/18 05:45 Synthroid Tab* PO 75 mcg DAILY@0600 CLAUDIA Administration Losartan Potassium 50 mg 06/02/18 09:00 06/05/18 08:25 Cozaar Tab* PO 50 mg DAILY CLAUDIA Administration Magnesium Hydroxide 30 ml 06/01/18 11:32 Milk Of Magnesia Liq* PO Q6H PRN CONSTIPATION Magnesium Oxide 400 mg 06/01/18 21:00 06/04/18 21:07 Magox 400 Tab* PO 400 mg BEDTIME CLAUDIA Administration Metoprolol Succinate 25 mg 06/02/18 09:00 06/05/18 08:25 Toprol Xl Tab* PO 25 mg DAILY CLAUDIA Administration Multivitamins/Minerals 1 tab 06/01/18 21:00 06/05/18 08:24 Theragran/Minerals Tab* PO 1 tab BID CLAUDIA Administration Nitroglycerin 0.4 mg 06/01/18 11:44 Nitroglycerin Tab 0.4 Mg* SL Q5M PRN ANGINA Polyethylene Glycol/Electrolytes 17 gm 06/01/18 11:50 Miralax* PO DAILY PRN CONSTIPATION Senna 2 tab 06/01/18 11:32 Senokot Tab* PO BEDTIME PRN CONSTIPATION Sertraline HCl 50 mg 06/02/18 09:00 06/05/18 08:25 Zoloft* PO 50 mg DAILY CLAUDIA Administration Vital Signs: Vital Signs Temp Pulse Resp BP Pulse Ox 98.6 F 69 18 140/63 97 06/05/18 15:50 06/05/18 15:50 06/05/18 15:52 06/05/18 15:50 06/05/18 15:52 Exam: GENERAL: Alert and appropriate. LUNGS: clear bilaterally. HEART: Regular rate and rhythm. ABDOMEN: Active bowel sounds. Soft, non-tender, non-distended. EXTREMITIES: Some swelling around her right knee. Sutures C/D/I. . NEUROLOGIC: Lower extremity motor 5/5 bilaterally with normal sensation except pain limited testing of the right hip and knee. Assessment/Plan: 1. Right total knee replacement: followup with Dr. Manriquez. Her dressing will be changed regularly. WBAT. PT/OT 2. Pain control: Scheduled Tylenol and the Cryo Cuff Unit. 3. Acute postoperative anemia: Lovenox stopped. Transfused yesterday. CBC Monday. 4. Chronic cough and dysphagia: CXR negative. Ordered Video Swallow Study. [place] thick liquids, no straws, extra sauces/gravies. f/u with Speech therapy. 5. DVT prophylaxis. Heparin S/Q. Continue with SCDs and TEDs. 6. Coronary artery disease. Continue with Imdur and Lipitor. Resume ASA. 7. Hypertension: Continue with metoprolol and losartan. 8. Advance directives: DNR. Her son, Gil, is her healthcare proxy. His phone number is [phone]. 9. Estimated length of stay: Anticipate d/c around 06/12/18 06/05/18 17:50
[2018-06-05] MEDS: Famotidine TAB* 20 MG PO SCH (21:00)
[2018-06-05] MEDS: Magnesium Oxide TAB* 400 MG PO SCH (21:00)
[2018-06-05] MEDS: Isosorbide Mononitrate ER TAB* 30 MG PO SCH (21:00)
[2018-06-05] MEDS: Atorvastatin* 10 MG TAB PO SCH (21:00)
[2018-06-06 05:30] LABS: Hematocrit 31 % (35-47); Hemoglobin 10.5 g/dl (12.0-16.0); Mean Corpuscular HGB Conc 34 g/dl (31-36); Mean Corpuscular Hemoglobin 32 pg (27-31); Mean Corpuscular Volume 92 fL (80-97); Mean Platelet Volume 7.5 um3 (7.4-10.4); Platelet Count 299 10^3/ul (150-450); Red Blood Count 3.31 10^6/ul (4.00-5.40); Red Cell Distribution Width 17 % (10.5-15); White Blood Count 7.6 10^3/ul (3.5-10.8)
[2018-06-06] MEDS: Acetaminophen TAB* 325 MG PO SCH ×3 (05:30→20:48)
[2018-06-06] MEDS: Levothyroxine TAB* 75 MCG TAB PO SCH (05:30)
[2018-06-06 05:45] LABS: EGFR Non-African American 55.5 (>60)
[2018-06-06 05:53] LABS: ABS Basophils 0.1 10^3/ul (0-0.2); ABS Eosinophils 0.4 10^3/ul (0-0.6); ABS Lymphocytes 1.1 10^3/ul (1.0-4.8); ABS Neutrophils 5.1 10^3/ul (1.5-7.7); ABS Nucleated RBC 0 10^3/ul; Eosinophil % 5.4 % (0-6); Lymphocyte % 14.8 % (25-47); Nucleated Red Blood Cells % 0
[2018-06-06] MEDS: Docusate CAP* 100 MG PO SCH ×2 (09:15→20:49)
[2018-06-06] MEDS: Multivitamins/Minerals TAB PO SCH ×2 (09:15→20:49)
[2018-06-06] MEDS: Metoprolol Succinate XL TAB* 25 MG PO SCH (09:15)
[2018-06-06] MEDS: Clopidogrel TAB* 75 MG PO SCH (09:15)
[2018-06-06] MEDS: Aspirin EC TAB* 81 MG TAB.EC PO SCH (09:16)
[2018-06-06] MEDS: Heparin VIAL(*) 5000 UNITS/ML VIAL (FIVE THOUSAND) SUBCUT SCH ×2 (09:16→20:54)
[2018-06-06] MEDS: Sertraline* 50 MG TAB PO SCH (09:16)
[2018-06-06] MEDS: IPRATROPIUM BR 0.06% BOTH NARES SCH ×3 (09:16→20:53)
[2018-06-06] MEDS: Losartan TAB* 25 MG PO SCH (09:16)
--- NOTE | 2018-06-06 13:39 | RAD ---
HISTORY: SWALLOWING [place] WITH SPEECH COMPARISONS: None TECHNIQUE: A videofluoroscopic evaluation of swallow was performed in conjunction with speech therapy. Barium laced foods and liquids of varying consistency were administered under fluoroscopic observation. Total fluoroscopy time is 1 minute . FINDINGS: ORAL PHASE: There is normal and transfer initiation. There is minimal early release with liquid. PHARYNGEAL PHASE: There is normal elevation and propulsion. ASPIRATION/PENETRATION: There is aspiration with honey thick liquid barium that resolves with chin tilting technique. OTHER FINDINGS: Degenerative changes are noted of the spine. IMPRESSION: ASPIRATION WITH LIQUID BARIUM DESCRIBED ABOVE. . PLEASE SEE THE SPEECH THERAPIST REPORT FOR FURTHER INFORMATION CPT II Codes: G9500
--- NOTE | 2018-06-06 18:28 | PN ---
Progress Note Date of Service: 06/06/18 Note: SUJATHA ZAAMN was visited. Therapy notes read and reviewed. Had video swallow. She had some penetration but was able to clear. With chin tuck, she did better. Will allow thin liquids. Current Medications: Active Medications Generic Name Dose Route Start Last Admin Trade Name Freq PRN Reason Stop Dose Admin Acetaminophen 975 mg 06/01/18 22:00 06/06/18 14:05 Tylenol Tab* PO 975 mg 0600,1400,2200 CLAUDIA Administration Al Hydrox/Mg Hydrox/Simethicone 30 ml 06/01/18 11:32 Maalox Plus* PO Q6H PRN INDIGESTION Aspirin 81 mg 06/05/18 09:00 06/06/18 09:16 Aspirin Ec Tab* PO 81 mg DAILY CLAUDIA Administration Atorvastatin Calcium 10 mg 06/01/18 21:00 06/05/18 21:00 Lipitor* PO 10 mg BEDTIME CLAUDIA Administration Bisacodyl 10 mg 06/01/18 11:32 Dulcolax Supp* [place] DAILY PRN CONSTIPATION Clopidogrel Bisulfate 75 mg 06/06/18 09:00 06/06/18 09:15 Plavix Tab* PO 75 mg DAILY CLAUDIA Administration Docusate Sodium 100 mg 06/01/18 21:00 06/06/18 09:15 Colace Cap* PO 100 mg BID CLAUDIA Administration Famotidine 40 mg 06/01/18 21:00 06/05/18 21:00 Pepcid Tab* PO 40 mg BEDTIME CLAUDIA Administration Heparin Sodium (Porcine) 5,000 units 06/03/18 10:00 06/06/18 09:16 Heparin Vial(*) SUBCUT 5,000 units Q12HR CLAUDIA Administration Ipratropium [place] 2 ml 06/01/18 17:00 06/06/18 14:05 Ipratropium [place] BOTH NARES 2 ml TID CLAUDIA Administration Isosorbide Mononitrate 30 mg 06/01/18 21:00 06/05/18 21:00 Imdur Er Tab* PO 30 mg BEDTIME CLAUDIA Administration Levothyroxine Sodium 75 mcg 06/02/18 06:00 06/06/18 05:30 Synthroid Tab* PO 75 mcg DAILY@0600 CLAUDIA Administration Losartan Potassium 50 mg 06/02/18 09:00 06/06/18 09:16 Cozaar Tab* PO 50 mg DAILY CLAUDIA Administration Magnesium Hydroxide 30 ml 06/01/18 11:32 Milk Of Magnesia Liq* PO Q6H PRN CONSTIPATION Magnesium Oxide 400 mg 06/01/18 21:00 06/05/18 21:00 Magox 400 Tab* PO 400 mg BEDTIME CLAUDIA Administration Metoprolol Succinate 25 mg 06/02/18 09:00 06/06/18 09:15 Toprol Xl Tab* PO 25 mg DAILY CLAUDIA Administration Multivitamins/Minerals 1 tab 06/01/18 21:00 06/06/18 09:15 Theragran/Minerals Tab* PO 1 tab BID CLAUDIA Administration Nitroglycerin 0.4 mg 06/01/18 11:44 Nitroglycerin Tab 0.4 Mg* SL Q5M PRN ANGINA Polyethylene Glycol/Electrolytes 17 gm 06/01/18 11:50 Miralax* PO DAILY PRN CONSTIPATION Senna 2 tab 06/01/18 11:32 Senokot Tab* PO BEDTIME PRN CONSTIPATION Sertraline HCl 50 mg 06/02/18 09:00 06/06/18 09:16 Zoloft* PO 50 mg DAILY CLAUDIA Administration Vital Signs: Vital Signs Temp Pulse Resp BP Pulse Ox 98.3 F 77 18 120/55 95 06/06/18 15:08 06/06/18 15:08 06/06/18 16:17 06/06/18 15:08 06/06/18 16:28 Lab Results: Laboratory Results - last 24 hr 06/06/18 06/06/18 05:04 05:04 WBC 7.6 RBC 3.31 L Hgb 10.5 L Hct 31 L MCV 92 MCH 32 H MCHC 34 RDW 17 H Plt Count 299 MPV 7.5 Neut % (Auto) 66.2 Lymph % (Auto) 14.[address] [place] % (Auto) 12.9 H Eos % (Auto) 5.4 Baso % (Auto) 0.7 Absolute Neuts (auto) 5.1 Absolute Lymphs (auto) 1.1 Absolute Monos (auto) 1.0 H Absolute Eos (auto) 0.4 Absolute Basos (auto) 0.1 Absolute Nucleated RBC 0 Nucleated RBC % 0 Polychromasia 1+ Elliptocytes 2+ Acanthocytes (Spur) 1+ Sodium 134 L Potassium 5.2 H Chloride 100 L Carbon Dioxide 28 Anion Gap 6 BUN 23 Creatinine 0.95 Est GFR ( Amer) 67.2 Est GFR (Non-Af Amer) 55.5 BUN/Creatinine Ratio 24.2 H Glucose 100 Calcium 9.1 Total Bilirubin 0.60 AST 27 ALT 23 Alkaline Phosphatase 51 Total Protein 6.3 L Albumin 3.2 Globulin 3.1 Albumin/Globulin Ratio 1.0 Exam: GENERAL: Alert and appropriate. LUNGS: clear bilaterally. HEART: Regular rate and rhythm. ABDOMEN: Active bowel sounds. Soft, non-tender, non-distended. EXTREMITIES: Some swelling around her right knee. Sutures C/D/I. . NEUROLOGIC: Lower extremity motor 5/5 bilaterally with normal sensation except pain limited testing of the right hip and knee. Assessment/Plan: 1. Right total knee replacement: followup with Dr. Manriquez. Her dressing will be changed regularly. WBAT. PT/OT 2. Pain control: Scheduled Tylenol and the Cryo Cuff Unit. 3. Acute postoperative anemia: Lovenox stopped. Transfused over weekend. CBC today better. on S/Q heparin4. Chronic cough and dysphagia: CXR negative. Video Swallow Study as noted. Thin liquids, no straws, extra sauces/gravies. f/u with Speech therapy. 5. DVT prophylaxis. Heparin S/Q. Continue with SCDs and TEDs. 6. Coronary artery disease. Continue with Imdur and Lipitor. Resumed ASA and Plavix. 7. Hypertension: Continue with metoprolol and losartan. 8. Advance directives: DNR. Her son, Gil, is her healthcare proxy. His phone number is [phone]. 9. Estimated length of stay: Anticipate d/c around 06/08/18 06/06/18 18:28
[2018-06-06] MEDS: Famotidine TAB* 20 MG PO SCH (20:48)
[2018-06-06] MEDS: Magnesium Oxide TAB* 400 MG PO SCH (20:49)
[2018-06-06] MEDS: Isosorbide Mononitrate ER TAB* 30 MG PO SCH (20:50)
[2018-06-06] MEDS: Atorvastatin* 10 MG TAB PO SCH (20:51)
[2018-06-07] MEDS: Acetaminophen TAB* 325 MG PO SCH ×3 (05:58→20:09)
[2018-06-07] MEDS: Levothyroxine TAB* 75 MCG TAB PO SCH (05:59)
[2018-06-07] MEDS: Docusate CAP* 100 MG PO SCH ×2 (08:46→20:10)
[2018-06-07] MEDS: Metoprolol Succinate XL TAB* 25 MG PO SCH (08:48)
[2018-06-07] MEDS: Aspirin EC TAB* 81 MG TAB.EC PO SCH (08:48)
[2018-06-07] MEDS: IPRATROPIUM BR 0.06% BOTH NARES SCH ×3 (08:48→20:12)
[2018-06-07] MEDS: Clopidogrel TAB* 75 MG PO SCH (08:48)
[2018-06-07] MEDS: Multivitamins/Minerals TAB PO SCH ×2 (08:48→20:10)
[2018-06-07] MEDS: Sertraline* 50 MG TAB PO SCH (08:48)
[2018-06-07] MEDS: Losartan TAB* 25 MG PO SCH (08:48)
[2018-06-07] MEDS: Enoxaparin(*) 30 MG/0.3 ML SYR SUBCUT SCH (08:49)
--- NOTE | 2018-06-07 19:19 | PN ---
Progress Note Date of Service: 06/07/18 Note: SUJATHA ZAMAN was visited. Therapy notes read and reviewed. She feels like she is ready to go home. Her right knee still has the small tape blister but looks ok. Current Medications: Active Medications Generic Name Dose Route Start Last Admin Trade Name Freq PRN Reason Stop Dose Admin Acetaminophen 975 mg 06/01/18 22:00 06/07/18 14:15 Tylenol Tab* PO 975 mg 0600,1400,2200 CLAUDIA Administration Al Hydrox/Mg Hydrox/Simethicone 30 ml 06/01/18 11:32 Maalox Plus* PO Q6H PRN INDIGESTION Aspirin 81 mg 06/05/18 09:00 06/07/18 08:48 Aspirin Ec Tab* PO 81 mg DAILY CLAUDIA Administration Atorvastatin Calcium 10 mg 06/01/18 21:00 06/06/18 20:51 Lipitor* PO 10 mg BEDTIME CLAUDIA Administration Bisacodyl 10 mg 06/01/18 11:32 Dulcolax Supp* CT DAILY PRN CONSTIPATION Clopidogrel Bisulfate 75 mg 06/06/18 09:00 06/07/18 08:48 Plavix Tab* PO 75 mg DAILY CLAUDIA Administration Docusate Sodium 100 mg 06/01/18 21:00 06/07/18 08:46 Colace Cap* PO 100 mg BID CLAUDIA Administration Enoxaparin Sodium 30 mg 06/07/18 09:00 06/07/18 08:49 Lovenox(*) SUBCUT 30 mg Q24H CLAUDIA Administration Famotidine 40 mg 06/01/18 21:00 06/06/18 20:48 Pepcid Tab* PO 40 mg BEDTIME CLAUDIA Administration Ipratropium [place] 2 ml 06/01/18 17:00 06/07/18 14:16 Ipratropium [place] BOTH NARES 2 ml TID CLAUDIA Administration Isosorbide Mononitrate 30 mg 06/01/18 21:00 06/06/18 20:50 Imdur Er Tab* PO 30 mg BEDTIME CLAUDIA Administration Levothyroxine Sodium 75 mcg 06/02/18 06:00 06/07/18 05:59 Synthroid Tab* PO 75 mcg DAILY@0600 CLAUDIA Administration Losartan Potassium 50 mg 06/02/18 09:00 06/07/18 08:48 Cozaar Tab* PO 50 mg DAILY CLAUDIA Administration Magnesium Hydroxide 30 ml 06/01/18 11:32 Milk Of Magnvenancio Liq* PO Q6H PRN CONSTIPATION Magnesium Oxide 400 mg 06/01/18 21:00 06/06/18 20:49 Magox 400 Tab* PO 400 mg BEDTIME CLAUDIA Administration Metoprolol Succinate 25 mg 06/02/18 09:00 06/07/18 08:48 Toprol Xl Tab* PO 25 mg DAILY CLAUDIA Administration Multivitamins/Minerals 1 tab 06/01/18 21:00 06/07/18 08:48 Theragran/Minerals Tab* PO 1 tab BID CLAUDIA Administration Nitroglycerin 0.4 mg 06/01/18 11:44 Nitroglycerin Tab 0.4 Mg* SL Q5M PRN ANGINA Polyethylene Glycol/Electrolytes 17 gm 06/01/18 11:50 Miralax* PO DAILY PRN CONSTIPATION Senna 2 tab 06/01/18 11:32 Senokot Tab* PO BEDTIME PRN CONSTIPATION Sertraline HCl 50 mg 06/02/18 09:00 06/07/18 08:48 Zoloft* PO 50 mg DAILY CLAUDIA Administration Vital Signs: Vital Signs Temp Pulse Resp BP Pulse Ox 98.4 F 72 18 126/55 96 06/07/18 16:21 06/07/18 16:21 06/07/18 16:21 06/07/18 16:21 06/07/18 18:25 Exam: GENERAL: Alert and appropriate. LUNGS: clear bilaterally. HEART: Regular rate and rhythm. ABDOMEN: Active bowel sounds. Soft, non-tender, non-distended. EXTREMITIES: Some swelling around her right knee. Sutures C/D/I. .Tape blister intact NEUROLOGIC: Lower extremity motor 5/5 bilaterally with normal sensation except pain limited testing of the right hip and knee. Assessment/Plan: 1. Right total knee replacement: followup with Dr. Manriquez. Her dressing will be changed regularly. WBAT. PT/OT 2. Pain control: Scheduled Tylenol and the Cryo Cuff Unit. 3. Acute postoperative anemia: Lovenox re-started. CBC in am. 4. Chronic cough and dysphagia: CXR negative. Video Swallow Study as noted. Thin liquids. f/u with Speech therapy. 5. DVT prophylaxis. Lovenox S/Q. Continue with TEDs. 6. Coronary artery disease. Continue with Imdur/Lipitor/ASA/Plavix. 7. Hypertension: Continue with metoprolol and losartan. 8. Advance directives: DNR. Her son, Gil, is her healthcare proxy. His phone number is [phone]. 9. Estimated length of stay: Anticipate d/c 06/08/18 06/07/18 19:20
[2018-06-07] MEDS: Isosorbide Mononitrate ER TAB* 30 MG PO SCH (20:09)
[2018-06-07] MEDS: Magnesium Oxide TAB* 400 MG PO SCH (20:09)
[2018-06-07] MEDS: Atorvastatin* 10 MG TAB PO SCH (20:09)
[2018-06-07] MEDS: Famotidine TAB* 20 MG PO SCH (20:10)
[2018-06-08] MEDS: Levothyroxine TAB* 75 MCG TAB PO SCH (05:30)
[2018-06-08] MEDS: Acetaminophen TAB* 325 MG PO SCH (05:30)
[2018-06-08 05:41] VITALS: BP 151/74
[2018-06-08 07:01] LABS: Hematocrit 31 % (35-47); Hemoglobin 10.5 g/dl (12.0-16.0); Mean Corpuscular HGB Conc 34 g/dl (31-36); Mean Corpuscular Hemoglobin 31 pg (27-31); Mean Corpuscular Volume 92 fL (80-97); Mean Platelet Volume 7.3 um3 (7.4-10.4); Platelet Count 364 10^3/ul (150-450); Red Blood Count 3.35 10^6/ul (4.00-5.40); Red Cell Distribution Width 16 % (10.5-15); White Blood Count 8.1 10^3/ul (3.5-10.8)
[2018-06-08] MEDS: IPRATROPIUM BR 0.06% BOTH NARES SCH (08:32)
[2018-06-08] MEDS: Aspirin EC TAB* 81 MG TAB.EC PO SCH (08:57)
[2018-06-08] MEDS: Clopidogrel TAB* 75 MG PO SCH (08:57)
[2018-06-08] MEDS: Metoprolol Succinate XL TAB* 25 MG PO SCH (08:58)
[2018-06-08] MEDS: Docusate CAP* 100 MG PO SCH (08:58)
[2018-06-08] MEDS: Losartan TAB* 25 MG PO SCH (08:59)
[2018-06-08] MEDS: Multivitamins/Minerals TAB PO SCH (08:59)
[2018-06-08] MEDS: Sertraline* 50 MG TAB PO SCH (09:03)
[2018-06-08] MEDS: Enoxaparin(*) 30 MG/0.3 ML SYR SUBCUT SCH (10:18)
--- NOTE | 2018-06-10 00:34 | DS ---
CC: Dr. Sofy Mejía; Dr. Laura Manriquez DISCHARGE SUMMARY: DATE OF ADMISSION: 06/01/18 DATE OF DISCHARGE: 06/08/18 DISCHARGE DIAGNOSES: 1. Right total knee replacement. 2. Hypertension. 3. Coronary artery disease. 4. Acute blood loss anemia. 5. Dysphagia. 6. History of hemorrhagic stroke in 1995 secondary to Coumadin. HISTORY OF ILLNESS AND HOSPITAL COURSE: For complete history of the events leading up to her rehab stay, please see the history and physical dictated by Dr. Juliet Zamora on 06/01/18. While on the rehab unit, the patient's hemoglobin dropped to 7.9, but she had a history of coronary artery disease and was feeling dizzy when she walked and it was decided to transfuse her. She was transfused 2 units of packed red blood cells. The patient had been put on nectar-thick liquids because of some concern of dysphagia on the bedside swallow. She did have a video swallow done with Speech Therapy and she was cleared for regular liquids. The patient's wound healed well. She did have a tape blister noted on her right knee. The patient was put back on her Lovenox for DVT prophylaxis after her hemoglobins were noted to be stable after transfusion. The patient was seen by Physical Therapy and Occupational Therapy and made gains with both disciplines. With physical therapy, at the time of admission, she required contact guard to transfer, contact guard to ambulate. She ambulated about 40 feet. With occupational therapy, at the time of admission, the patient required supervision for upper body dressing, max assist for lower body dressing, min assist for bathing, max assist for toileting. By the time of discharge, the patient was independent in all activities. In addition, as mentioned previously, the patient worked with Speech Therapy on her dysphagia. At the time of admission, she was put on nectar-thick diet, but by the time of discharge, she had been cleared for regular thin liquids. The patient was otherwise medically stable. She was discharged home on 06/08/18. The patient was examined by me on the day of discharge. Her exam was stable. Knee appeared clean. DISCHARGE DIET: Regular with thin liquids. DISCHARGE MEDICATIONS: 1. Aspirin 81 mg daily. 2. Lipitor 10 mg daily. 3. Plavix 75 mg daily. 4. Lovenox 30 mg daily subcutaneously for 10 days after discharge. 5. Imdur ER 30 mg at bedtime. 6. Synthroid 75 mcg daily. 7. Toprol-XL 25 mg daily. 8. Zoloft 50 mg daily. 9. Nitroglycerin 0.4 mg sublingually every 5 minutes as needed for angina. 10. Hyzaar 50/12.5 one tablet every morning. SERVICES AFTER DISCHARGE: Through the visiting nurse service, she will have home nursing, home physical therapy, and a home health aide. Follow up with Dr. Laura Manriquez on 06/11/18. She will also follow up with her primary care doctor, Dr. Sofy Mejía. Time for this discharge was approximately 50 minutes, greater than half of that spent with the patient and her family discussing post rehab medications and plans. [id number]/[facility] #: [id number] MTDD
== END 2018-06-08 13:00 | disposition home health service (06) | DRG 560 ==
LOC: PMRU 11:33
PROVIDERS: ADMIT Physical Medicine & Rehabilitation; ATTEND Physical Medicine & Rehabilitation
PROC: F07Z5ZZ Bed Mobility Treatment (ICD-10-PCS; 2018-06-01)
PROC: F07Z9ZZ Gait Training/Functional Ambulation Treatment (ICD-10-PCS; 2018-06-01)
PROC: F07Z8ZZ Transfer Training Treatment (ICD-10-PCS; 2018-06-01)
PROC: F08Z0ZZ Bathing/Showering Techniques Treatment (ICD-10-PCS; 2018-06-01)
PROC: F08Z1ZZ Dressing Techniques Treatment (ICD-10-PCS; 2018-06-01)
PROC: F08Z3ZZ Feeding/Eating Treatment (ICD-10-PCS; 2018-06-01)
PROC: F06Z6ZZ Communicative/Cognitive Integration Skills Treatment (ICD-10-PCS; 2018-06-01)
PROC: 30233N1 Transfusion of Nonautologous Red Blood Cells into Peripheral Vein, Percutaneous Approach (ICD-10-PCS; principal; 2018-06-03)
DX: Z47.1 Aftercare following joint replacement surgery (principal); D62 Acute posthemorrhagic anemia; F33.9 Major depressive disorder, recurrent, unspecified; Z96.651 Presence of right artificial knee joint; I25.10 Atherosclerotic heart disease of native coronary artery without angina pectoris; I11.9 Hypertensive heart disease without heart failure; R13.10 Dysphagia, unspecified; R33.9 Retention of urine, unspecified; E78.5 Hyperlipidemia, unspecified; F41.9 Anxiety disorder, unspecified; E03.9 Hypothyroidism, unspecified; M19.012 Primary osteoarthritis, left shoulder; M19.011 Primary osteoarthritis, right shoulder; Z66 Do not resuscitate; R05 Cough; I69.319 Unspecified symptoms and signs involving cognitive functions following cerebral infarction; Z95.5 Presence of coronary angioplasty implant and graft; I25.2 Old myocardial infarction; Z79.01 Long term (current) use of anticoagulants; Z79.1 Long term (current) use of non-steroidal anti-inflammatories (NSAID); Z79.899 Other long term (current) drug therapy; Z88.5 Allergy status to narcotic agent; Z88.8 Allergy status to other drugs, medicaments and biological substances; Z82.49 Family history of ischemic heart disease and other diseases of the circulatory system; Z82.61 Family history of arthritis; Z82.3 Family history of stroke; Z80.9 Family history of malignant neoplasm, unspecified; Z87.891 Personal history of nicotine dependence
CPT/HCPCS: 36415; 74230; 80053; 85025; 85027; 86850; 86900; 86901; 86922; A9270-GY; J1644; J1650; P9040

== ENCOUNTER 2018-11-23 18:47 | Emergency (ER) | payer MEDICARE, BC ==
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
--- OUTSIDE RECORDS SUMMARY | 2018-11-23 19:06 | XMS REPORT | Continuity of Care Document ---
:1930 External Reference #:[id number] Author Name Sabrina Mccallum Care Team Providers Name Role Phone Sofy Mejía MD Primary Care Physician Unavailable Payers Type Date Identification Numbers Payment Provider Subscriber Policy Number: [id number] Medicare Rachael Amin PayID: [id number] [address] [place] [address] Effective: 1995 Policy Number: [id number] Medicare Rachael Amin Expires: 2018 PayID: [id number] [address] [place] [address] Effective: 2012 Policy Number: [id number] [employer] Rachael Amin PayID: [id number] [address] [address] MARTINE Lemons [id number] Effective: 2001 Policy Number: [id number] [employer] [place] Rachael Amin Expires: 2012 Group Number: [id number] [address] [address] PayID: [id number] MARTINE Lemons [id number] Advance Directives Description No Information Available Problems Date Description Provider Status Onset: 08/12/2014 Coronary arteriosclerosis Evelin Zhang M.D. Active Onset: 08/12/2014 Pure hypercholesterolemia Evelin Zhang M.D. Active Onset: 08/12/2014 Benign essential hypertension Evelin Zhang M.D. Active Onset: 07/20/2015 Essential hypertension Evelin Zhang M.D. Active Onset: 04/22/2016 Palpitations Evelin Zhang M.D. Active Onset: 04/22/2016 Old myocardial infarction Evelin Zhang M.D. Active Onset: 04/22/2016 Mitral valve disorder Evelin Zhang M.D. Active Onset: 04/22/2016 Tricuspid valve disorder, non-rheumatic Evelin Zhang M.D. Active Onset: 09/26/2016 Localized, primary osteoarthritis Laura Manriquez M.D. Active Onset: 06/08/2017 Aortic valve disorder Evelin Zhang M.D. Active Family History Date Family Member(s) Problem(s) Comments General Cancer General Heart Disease General Hypertension General Stroke General Rheumatoid Arthritis Social History Type Date Description Comments Sex Unknown Lives With Spouse Tobacco Use Start: Unknown Heavy tobacco smoker (more than 10 cigarettes/day) Cigarette Use Quit 38 Years Ago Smoking Status Reviewed: 11/14/18 Heavy tobacco smoker (more than 10 cigarettes/day) ETOH Use Drinks Alcoholic Beverages Occasionally Tobacco Use Start: Unknown End: Patient is a former smoker Unknown Recreational Drug Use Denies Drug Use Exercise Type/Frequency Does not exercise Allergies, Adverse Reactions, Alerts Date Description Reaction Status Severity Comments 10/21/2013 Morphine Active 08/12/2014 Prevacid Active diarrhea 04/12/2018 Warfarin Active states caused to have stroke Medications Medication Date Status Form Strength Qnty SIG Indications Ordering Provider Ranitidine HCL 03/25 Active Tablets 150mg 1 tablet Blegen po twice judy Goetz MD Hydrochlorothiazid 02/27 Active Tablets 12.5mg 1 tablet Blegen, e po every rica Goetz MD Losartan Potassium 02/27 Active Tablets 50mg 1 tablet Blegen, po daily Jean Paul Goetz MD Atorvastatin 02/05 Active Tablets 10mg 30tab 1 by mouth Heet[place]ks Calcium /2017 s every day , Prasanna Esteban MD Clopidogrel 01/14 Active Tablets 75mg 90tab 1 by mouth Janettegen, Bisulfate s every day MD Sofy Levothyroxine 10/19 Active Tablets 88mcg Take One Blegen, Sodium Tablet By Jennifer Goetz MD Every Day On Empty Stomach Sertraline 08/27 Active 50mg 1 tablet Blegen, po daily MD Sofy Isosorbide 07/24 Active Tablets ER 30mg 90tab 1 tablet Blegen, Mononitrate ER 24HR s by mouth Sofy every day MD gore Aspirin Active 81mg daily Unknown Miralax Active prn Metoprolol Active Tablets ER 25mg 90tab 1 tablet Evelin Succinate ER /0000 24HR s by mouth Vicente, every day M.D. Nitrostat Active Tablets 0.4mg 25tab one sl Unknown / Sub s q5min up to 3 doses as needed Magnesium Active Tablets 500mg 1 po q day Unknown / Vitamin D3 Active Tablets 2000Unit 1 by mouth Unknown /0000 everyday Am Cyanocobalamin Active Solution 1000mcg/M 1 mL Unknown / L injectiong once monthly as directed Ipratropium Active Solution 0.06% 2 sprays Unknown [place] / in each nostril 1 times a day as needed Tylenol Arthritis Active Tablets ER 650mg 2 by mouth Unknown Pain /0000 every day to twice a day as needed Ocuvite Eye Active Capsules 1 tab po Unknown Vitamin/Mineral /0000 bid Adult 50+ Delio Red [place] Active 1 po daily Unknown Orange 3 Krill Oil / Glucosamine Active 1 tablet Unknown Chondroitin / po twice daily Am/PM Pain Freeze Active Gel applied to Unknown / affected areas as needed Prednisone 09/06 Hx Tablets 1mg 120ta 4 tabs by Jalen Rasmussen /Odilon bs mouth or Reji, - as M.D. 12/[address] Carlin Prednisone 03/17 Hx Tablets 5mg 60tab 1 tab by Jalen Rasmussen /Odilon s mouth once Reji, - a day. M.D. 12/20 Fish Oil Hx 1000mg 1 cap po twice ricci - Am/PM 04/01 Omeprazole Hx 20mg daily - 12/19 Lipitor / Hx - 08/11 Levoxyl 00 Hx 75mcg 1 daily - 12/19 Dulcolax 00/ Hx / - 08/11 Nystatin / Hx 08/11 Toprol 00/ Hx - 08/11 Calcium 00/00 Hx daily Unknown - 04/21 Plavix / Hx / - 08/11 Isosorbide Hx Unknown Dinitrate /0000 - 08/11 Vitamin B-Complex Hx Injection 100 1 Unknown 100 /0000 injection - 1000mcg 04/21 intramuscu /2015 lar every monthl Tylenol Extra Hx Tablets 500mg 2 tablet Unknown Strength /0000 po twice - daily 09/16 Am/ Amlodipine Hx Tablets 2.5mg 1 by mouth Unknown Besylate /0000 every day - 09/05 Triamcinolone Hx Cream 0.1% apply thin Unknown Acetonide /0000 film twice - daily 03/16 Amlodipine Hx Tablets 2.5mg 1 by mouth Blegen, Besylate /0000 daily Enoch Goetz MD 04/01 Prednisone Hx Tablets 1mg 1 by mouth M31.6 Curtis S. /0000 every day Enoch Marie M.D. 01/15 Medications Administered in Office Medication Date Status Form Strength Qnty SIG Indications Ordering Provider Depomedrol Administered Injection Josafat F 40MG Landry Mcdonald MD Depomedrol Administered Injection Laura 40MG Landry Manriquez M.D. Inj, Administered Injection Geremias Wyatt Regadenoson, Landry Carlson, 0.1 MG Ras, FACC, FASNC Technetium TC Administered Injection Geremias Wyatt 99M Landry Carlson TetrofRas pacheco, FACC, Per Unit Dose FASNC Up To 40 Millicuries Synvisc Or Administered Injection Laura Synvisc-One Jaqueline Manriquez M.D. Injection 1 MG Synvisc Or Administered Injection Laura Synvisc-One Jaqueline Manriquez M.D. Injection 1 MG Synvisc Or Administered Injection Laura Synvisc-One Jaqueline Manriquez M.D. Injection 1 MG Synvisc Or Administered Injection Laura Synvisc-One Jaqueline Manriquez M.D. Injection 1 MG Synvisc Or Administered Injection Laura Synvisc-One Jaqueline Manriquez M.D. Injection 1 MG Synvisc Or Administered Injection Laura Synvisc-One 017 Ras Manriquez Injection 1 MG Depomedrol Administered Injection Laura 40MG 016 Ras Manriquez Depomedrol Administered Injection Laura 40MG 016 Ras Manriquez Depomedrol Administered Injection Dirk Ike, 40MG 013 Ras Immunizations Description No Information Available Vital Signs Date Vital Result Comment 11/14/2018 9:26am Height 64 inches 5'4" Weight 159.00 lb Heart Rate 68 /min BP Systolic 128 mmHg BP Diastolic 70 mmHg BMI (Body Mass Index) 27.3 kg/m2 08/30/2018 10:32am Height 64 inches 5'4" Heart Rate 62 /min BP Systolic 128 mmHg BP Diastolic 60 mmHg Respiratory Rate 17 /min Body Temperature 98.2 F Pain Level 3 08/16/2018 9:41am Height 64 inches 5'4" Weight 160.00 lb Heart Rate 72 /min BP Systolic 136 mmHg BP Diastolic 64 mmHg Respiratory Rate 18 /min Body Temperature 98.2 F Pain Level 9 BMI (Body Mass Index) 27.5 kg/m2 08/13/2018 8:55am Height 63.25 inches 5'3.25" Heart Rate 68 /min BP Systolic 116 mmHg BP Diastolic 60 mmHg Body Temperature 99.0 F Pain Level 2 07/09/2018 9:36am Heart Rate 62 /min BP Systolic 140 mmHg BP Diastolic 64 mmHg Body Temperature 98.6 F Pain Level 2 06/11/2018 10:40am Height 63.25 inches 5'3.25" Weight 164.00 lb Heart Rate 80 /min BP Systolic 126 mmHg BP Diastolic 80 mmHg Pain Level 4 BMI (Body Mass Index) 28.8 kg/m2 05/16/2018 11:23am Height 63.25 inches 5'3.25" Weight 161.00 lb Heart Rate 60 /min BP Systolic Sitting 148 mmHg BP Diastolic Sitting 80 mmHg Respiratory Rate 20 /min Body Temperature 98.6 F Pain Level 8 BMI (Body Mass Index) 28.3 kg/m2 04/12/2018 8:42am Height 63.25 inches 5'3.25" Weight 161.00 lb Heart Rate 64 /min BP Systolic Sitting 118 mmHg Yenny reg cuff BP Diastolic Sitting 60 mmHg Yenny reg cuff BP Systolic Standing 114 mmHg Yenny reg cuff BP Diastolic Standing 56 mmHg Yenny reg cuff Respiratory Rate 18 /min BMI (Body Mass Index) 28.3 kg/m2 04/11/2018 10:20am Height 63.25 inches 5'3.25" Weight 160.00 lb Heart Rate 68 /min BP Systolic 122 mmHg BP Diastolic 60 mmHg Respiratory Rate 16 /min BMI (Body Mass Index) 28.1 kg/m2 04/02/2018 3:05pm Height 63.25 inches 5'3.25" Weight 159.00 lb Heart Rate 72 /min BP Systolic 132 mmHg sitting right arm BP Diastolic 84 mmHg sitting right arm BP Systolic Sitting 130 mmHg sitting left arm BP Diastolic Sitting 70 mmHg sitting left arm BP Systolic Standing 130 mmHg standing left arm BP Diastolic Standing 60 mmHg standing left arm Respiratory Rate 20 /min BMI (Body Mass Index) 27.9 kg/m2 Ejection Fraction 50-55% 03-30-2016 03/02/2018 8:36am Height 64 inches 5'4" Weight 163.00 lb Heart Rate 80 /min BP Systolic 150 mmHg BP Diastolic 80 mmHg BMI (Body Mass Index) 28.0 kg/m2 01/16/2018 10:59am Height 63.25 inches 5'3.25" Weight 160.00 lb Heart Rate 70 /min BP Systolic 130 mmHg BP Diastolic 78 mmHg BMI (Body Mass Index) 28.1 kg/m2 12/20/2017 11:33am Height 63.25 inches 5'3.25" Weight 160.00 lb Heart Rate 68 /min BP Systolic 164 mmHg BP Diastolic 78 mmHg Respiratory Rate 14 /min BMI (Body Mass Index) 28.1 kg/m2 09/06/2017 10:47am Height 63.25 inches 5'3.25" Weight 156.00 lb Heart Rate 74 /min BP Systolic 136 mmHg BP Diastolic 76 mmHg Respiratory Rate 14 /min BMI (Body Mass Index) 27.4 kg/m2 06/08/2017 3:34pm Height 63.25 inches 5'3.25" Weight 157.00 lb with shoes Heart Rate 70 /min BP Systolic Sitting 136 mmHg Lue reg cuff BP Diastolic Sitting 76 mmHg Lue reg cuff BP Systolic Standing 132 mmHg Lue reg cuff BP Diastolic Standing 74 mmHg Lue reg cuff Respiratory Rate 20 /min BMI (Body Mass Index) 27.6 kg/m2 Ejection Fraction 50-55% 03/30/2016-echo 05/08/2017 10:28am Height 63.25 inches 5'3.25" Weight 165.00 lb Heart Rate 74 /min BP Systolic Sitting 142 mmHg BP Diastolic Sitting 70 mmHg Respiratory Rate 18 /min BMI (Body Mass Index) 29.0 kg/m2 03/17/2017 9:04am Height 63.25 inches 5'3.25" Weight 162.00 lb Heart Rate 82 /min BP Systolic Sitting 142 mmHg BP Diastolic Sitting 86 mmHg Respiratory Rate 16 /min BMI (Body Mass Index) 28.5 kg/m2 11/16/2016 9:11am Height 63.25 inches 5'3.25" Weight 167.00 lb Respiratory Rate 21 /min Pain Level 2 BMI (Body Mass Index) 29.3 kg/m2 11/09/2016 9:16am Height 63.25 inches 5'3.25" Weight 167.00 lb Respiratory Rate 18 /min Pain Level 2 BMI (Body Mass Index) 29.3 kg/m2 11/02/2016 9:39am Height 63.25 inches 5'3.25" Weight 167.00 lb Pain Level 5 BMI (Body Mass Index) 29.3 kg/m2 10/24/2016 2:39pm Height 63.25 inches 5'3.25" Weight 167.00 lb Respiratory Rate 16 /min Pain Level 4 BMI (Body Mass Index) 29.3 kg/m2 09/26/2016 1:45pm Height 63.25 inches 5'3.25" Weight 167.00 lb Heart Rate 64 /min BP Systolic 130 mmHg BP Diastolic 82 mmHg Pain Level 5 BMI (Body Mass Index) 29.3 kg/m2 04/22/2016 9:41am Height 64.25 inches 5'4.25" Weight 162.00 lb with shoes Heart Rate 60 /min irreg BP Systolic Sitting 148 mmHg LA reg cuff BP Diastolic Sitting 90 mmHg LA reg cuff BP Systolic Standing 160 mmHg LA reg cuff BP Diastolic Standing 96 mmHg LA reg cuff Respiratory Rate 17 /min BMI (Body Mass Index) 27.6 kg/m2 Ejection Fraction 50-55% date 03/30/16 ECHO 07/20/2015 10:59am Height 64.25 inches 5'4.25" Weight 169.00 lb with shoes Heart Rate 60 /min regular BP Systolic 120 mmHg left arm reg cuff BP Diastolic 72 mmHg left arm reg cuff BP Systolic Standing 126 mmHg left arm reg cuff BP Diastolic Standing 72 mmHg left arm reg cuff Respiratory Rate 18 /min BMI (Body Mass Index) 28.8 kg/m2 08/12/2014 9:41am Height 64.25 inches 5'4.25" Weight 157.00 lb with shoes Heart Rate 68 /min BP Systolic Sitting 152 mmHg LA, reg cuff BP Diastolic Sitting 86 mmHg LA, reg cuff BP Systolic Standing 150 mmHg LA BP Diastolic Standing 86 mmHg LA Respiratory Rate 16 /min BMI (Body Mass Index) 26.7 kg/m2 Results Test Date Facility Test Result H/L Range Note CBC Auto Diff 05/16/2018 [facility] White Blood 4.4 10^3/uL N 3.5-10.[address] [place] [address] [phone] Red Blood Count 3.46 10^6/uL Low 4.00-5.40 Hemoglobin 11.2 g/dL Low 12.0-16.0 Hematocrit 33 % Low 35-47 Mean Corpuscular Volume 96 fL N 80-97 Mean Corpuscular Hemoglobin 33 pg High 27-31 Mean Corpuscular HGB Conc 34 g/dL N 31-36 Red Cell Distribution Width 14 % N 10.5-15 Platelet Count 206 10^3/uL N 150-450 Mean Platelet Volume 8.5 um3 N 7.4-10.4 Abs Neutrophils 2.5 10^3/uL N 1.5-7.7 Abs Lymphocytes 1.1 10^3/uL N 1.0-4.8 Abs Monocytes 0.6 10^3/uL N 0-0.8 Abs Eosinophils 0.2 10^3/uL N 0-0.6 Abs Basophils 0 10^3/uL N 0-0.2 Abs Nucleated RBC 0 10^3/uL Granulocyte % 56.7 % N 38-83 Lymphocyte % 24.4 % Low 25-47 Monocyte % 13.1 % High 0-7 Eosinophil % 4.8 % N 0-6 Basophil % 1.0 % N 0-2 Nucleated Red Blood Cells % 0.1 Inr/Protime 05/16/2018 [facility] Inr 0.91 N 0.77-1.[address] [place] [address] [phone] Laboratory test 05/16/2018 [facility] Partial 27.7 seconds N 26.0-36.[address] [place] [address] PTT [phone] Type & Screen 05/16/2018 [facility] Patient A Negative [address] [place] [address] [phone] Antibody Screen NEGATIVE Comp Metabolic Panel 05/16/2018 [facility] Sodium 138 mmol/L N [address] [place] [address] [phone] Potassium 4.8 mmol/L N 3.5-5.0 Chloride 101 mmol/L N 101-111 Co2 Carbon Dioxide 30 mmol/L N 22-32 Anion Gap 7 mmol/L N 2-11 Glucose 103 mg/dL High 70-100 Blood Urea Nitrogen 27 mg/dL High 6-24 Creatinine 1.06 mg/dL High 0.51-0.95 BUN/Creatinine Ratio 25.5 High 8-20 Calcium 9.6 mg/dL N 8.6-10.3 Total Protein 6.4 g/dL N 6.4-8.9 Albumin 4.1 g/dL N 3.2-5.2 Globulin 2.3 g/dL N 2-4 Albumin/Globulin Ratio 1.8 N 1-3 Total Bilirubin 0.40 mg/dL N 0.2-1.0 Alkaline Phosphatase 50 U/L N 34-104 Alt 8 U/L N 7-52 Ast 15 U/L N 13-39 Egfr Non- 49.0 >60 Egfr 59.3 >60 1 Laboratory test 03/15/2018 [facility] Ammonia 33 mcmol/L N 16- [address] [place] [address] [phone] CBC Auto Diff 03/15/2018 [facility] White Blood 3.8 10^3/uL N 3.5-10.[address] [place] [address] [phone] Red Blood Count 3.53 10^6/uL Low 4.0-5.4 Hemoglobin 11.6 g/dL Low 12.0-16.0 Hematocrit 34 % Low 35-47 Mean Corpuscular Volume 96 fL N 80-97 Mean Corpuscular Hemoglobin 33 pg High 27-31 Mean Corpuscular HGB Conc 34 g/dL N 31-36 Red Cell Distribution Width 13 % N 10.5-15 Platelet Count 201 10^3/uL N 150-450 Mean Platelet Volume 8.0 um3 N 7.4-10.4 Abs Neutrophils 2.0 10^3/uL N 1.5-7.7 Abs Lymphocytes 1.0 10^3/uL N 1.0-4.8 Abs Monocytes 0.5 10^3/uL N 0-0.8 Abs Eosinophils 0.2 10^3/uL N 0-0.6 Abs Basophils 0.1 10^3/uL N 0-0.2 Abs Nucleated RBC 0 10^3/uL Granulocyte % 52.1 % N 38-83 Lymphocyte % 27.5 % N 25-47 Monocyte % 14.0 % High 0-7 Eosinophil % 4.5 % N 0-6 Basophil % 1.9 % N 0-2 Nucleated Red Blood Cells % 0 Laboratory test 03/15/2018 [facility] Erythrocyte Sed 16 mm/Hr N 0-[address] [place] [address] [phone] Comp Metabolic 03/15/2018 [facility] Sodium 137 mmol/L Low 139 -[address] [place] [address] [phone] Chloride 101 mmol/L N 101-111 Co2 Carbon Dioxide 31 mmol/L N 22-32 Glucose 98 mg/dL N 70-100 Blood Urea Nitrogen 23 mg/dL N 6-24 Creatinine 0.80 mg/dL N 0.51-0.95 BUN/Creatinine Ratio 28.8 High 8-20 Calcium 10.2 mg/dL N 8.6-10.3 Total Protein 6.4 g/dL N 6.4-8.9 Albumin 4.0 g/dL N 3.2-5.2 Globulin 2.4 g/dL N 2-4 Albumin/Globulin Ratio 1.7 N 1-3 Total Bilirubin 0.60 mg/dL N 0.2-1.0 Alkaline Phosphatase 60 U/L N 34-104 Alt 10 U/L N 7-52 Ast 17 U/L N 13-39 Egfr Non- 67.8 >60 Egfr 87.3 >60 2 Potassium 5.1 mmol/L High 3.5-5.0 Anion Gap 5 mmol/L N 2-11 Laboratory test 03/15/2018 [facility] Magnesium 2.0 mg/dL N 1.9-2.7 finding [address] [place] [address] [phone] Iron & Iron Binding 03/15/2018 [facility] Iron 108 g/dL N 50 -212 [address] [place] [address] [phone] Unsaturated Iron Binding 273 g/dL Total Iron Binding Capacity 381 g/dL N 250-450 Transferrin 272 mg/dL N 203-362 % Iron Saturation 28 % N 15-55 Laboratory test 03/15/2018 [facility] Folic Acid 11.50 ng/mL >3.99 finding [address] [facility] (Folate) [place] [address] [phone] Vitamin E Level 10.6 mg/L 5.5 - 17.0 3 Laboratory test 01/09/2018 [facility] TSH (Thyroid 2.10 N 0.34 -5.60 4 finding [address] [facility] Stim Horm) mcIU/[place] [address] [phone] Comp Metabolic 01/09/2018 [facility] Sodium 137 mmol/L Low 139 -145 Panel [address] [place] [address] [phone] Potassium 4.6 mmol/L N 3.5-5.0 Chloride 100 mmol/L Low 101-111 Co2 Carbon Dioxide 29 mmol/L N 22-32 Anion Gap 8 mmol/L N 2-11 Glucose 94 mg/dL N 70-100 Blood Urea Nitrogen 29 mg/dL High 6-24 Creatinine 0.97 mg/dL High 0.51-0.95 BUN/Creatinine Ratio 29.9 High 8-20 Calcium 9.8 mg/dL N 8.6-10.3 Total Protein 6.4 g/dL N 6.4-8.9 Albumin 4.0 g/dL N 3.2-5.2 Globulin 2.4 g/dL N 2-4 Albumin/Globulin Ratio 1.7 N 1-3 Total Bilirubin 0.50 mg/dL N 0.2-1.0 Alkaline Phosphatase 45 U/L N 34-104 Alt 12 U/L N 7-52 Ast 19 U/L N 13-39 Egfr Non- 54.3 >60 Egfr 69.9 >60 5 Laboratory test 01/09/2018 [facility] Creatine 48 U/L N 10- 223 [address] Kinase(CK) [place] [address] [phone] Vitamin B12 529 pg/mL N 180-914 7 Hemoglobin A1c (Glyco HGB) 5.9 % High 4.0-5.6 8 CBC Auto Diff 01/09/2018 [facility] White Blood 4.2 10^3/uL N 3.5-10.[address] [place] [address] [phone] Red Blood Count 3.63 10^6/uL Low 4.0-5.4 Hemoglobin 12.0 g/dL N 12.0-16.0 Hematocrit 35 % N 35-47 Mean Corpuscular Volume 97 fL N 80-97 Mean Corpuscular Hemoglobin 33 pg High 27-31 Mean Corpuscular HGB Conc 34 g/dL N 31-36 Red Cell Distribution Width 14 % N 10.5-15 Platelet Count 204 10^3/uL N 150-450 Mean Platelet Volume 8.7 um3 N 7.4-10.4 Abs Neutrophils 2.6 10^3/uL N 1.5-7.7 Abs Lymphocytes 0.9 10^3/uL Low 1.0-4.8 Abs Monocytes 0.5 10^3/uL N 0-0.8 Abs Eosinophils 0.1 10^3/uL N 0-0.6 Abs Basophils 0.1 10^3/uL N 0-0.2 Abs Nucleated RBC 0 10^3/uL Granulocyte % 60.7 % N 38-83 Lymphocyte % 21.9 % Low 25-47 Monocyte % 12.3 % High 0-7 Eosinophil % 3.1 % N 0-6 Basophil % 2.0 % N 0-2 Nucleated Red Blood Cells % 0.1 Laboratory test 01/09/2018 [facility] Erythrocyte Sed 8 mm/Hr N 0-40 [address] [place] [address] [phone] CBC Auto Diff 07/17/2017 [facility] White Blood 7.8 N 3.5- 10.[address] Count 10^3/[place] [address] [phone] Red Blood Count 3.67 10^6/uL Low 4.0-5.4 Hemoglobin 12.0 g/dL N 12.0-16.0 Hematocrit 36 % N 35-47 Mean Corpuscular Volume 97 fL N 80-97 Mean Corpuscular Hemoglobin 33 pg High 27-31 Mean Corpuscular HGB Conc 34 g/dL N 31-36 Red Cell Distribution Width 15 % N 10.5-15 Platelet Count 205 10^3/uL N 150-450 Mean Platelet Volume 8 um3 N 7.4-10.4 Abs Neutrophils 6.5 10^3/uL N 1.5-7.7 Abs Lymphocytes 0.9 10^3/uL Low 1.0-4.8 Abs Monocytes 0.3 10^3/uL N 0-0.8 Abs Eosinophils 0 10^3/uL N 0-0.6 Abs Basophils 0 10^3/uL N 0-0.2 Abs Nucleated RBC 0 10^3/uL N Granulocyte % 82.8 % N 38-83 Lymphocyte % 11.8 % Low 25-47 Monocyte % 4.3 % N 1-9 Eosinophil % 0.5 % N 0-6 Basophil % 0.6 % N 0-2 Nucleated Red Blood Cells % 0 N Comp Metabolic Panel 07/17/2017 [facility] Sodium 138 mmol/L N 133-145 [address] [place] [address] [phone] Potassium 4.4 mmol/L N 3.5-5.0 Chloride 103 mmol/L N 101-111 Co2 Carbon Dioxide 30 mmol/L N 22-32 Anion Gap 5 mmol/L N 2-11 Glucose 114 mg/dL High 70-100 Blood Urea Nitrogen 20 mg/dL N 6-24 Creatinine 0.82 mg/dL N 0.51-0.95 BUN/Creatinine Ratio 24.4 High 8-20 Calcium 9.4 mg/dL N 8.6-10.3 Total Protein 6.5 g/dL N 6.4-8.9 Albumin 4.0 g/dL N 3.2-5.2 Globulin 2.5 g/dL N 2-4 Albumin/Globulin Ratio 1.6 N 1-3 Total Bilirubin 0.50 mg/dL N 0.2-1.0 Alkaline Phosphatase 32 U/L Low 34-104 Alt 11 U/L N 7-52 Ast 16 U/L N 13-39 Egfr Non- 65.9 N >60 Egfr 84.8 N >60 10 Lipid Profile 07/17/2017 [facility] Triglycerides 107 mg/dL N 11 (Trig/Chol/HDL) [address] [place] [address] [phone] Cholesterol 164 mg/dL N 12 HDL Cholesterol 71.9 mg/dL N 13 LDL Cholesterol 71 mg/dL N 14 Laboratory test 07/17/2017 [facility] Creatine 38 U/L N 10- 223 [address] Kinase(CK) [place] [address] [phone] Vitamin B12 1093 pg/mL High 180-914 16 TSH (Thyroid Stim Horm) 1.47 mcIU/mL N 0.34-5.60 17 Hemoglobin A1c (Glyco HGB) 6.1 % High Less than 6.0 18 Laboratory test 04/26/2017 [facility] Erythrocyte Sed 21 mm/Hr N 0-40 [address] [place] [address] [phone] CBC Auto Diff 04/26/2017 [facility] White Blood 11.8 High 3.5- 10.[address] Count 10^3/[place] [address] [phone] Red Blood Count 3.53 10^6/uL Low 4.0-5.4 Hemoglobin 11.2 g/dL Low 12.0-16.0 Hematocrit 35 % N 35-47 Mean Corpuscular Volume 99 fL High 80-97 Mean Corpuscular Hemoglobin 32 pg High 27-31 Mean Corpuscular HGB Conc 32 g/dL N 31-36 Red Cell Distribution Width 15 % N 10.5-15 Platelet Count 234 10^3/uL N 150-450 Mean Platelet Volume 9 um3 N 7.4-10.4 Abs Neutrophils 10.1 10^3/uL High 1.5-7.7 Abs Lymphocytes 0.8 10^3/uL Low 1.0-4.8 Abs Monocytes 0.7 10^3/uL N 0-0.8 Abs Eosinophils 0.1 10^3/uL N 0-0.6 Abs Basophils 0.1 10^3/uL N 0-0.2 Abs Nucleated RBC 0 10^3/uL N Granulocyte % 85.7 % High 38-83 Lymphocyte % 6.5 % Low 25-47 Monocyte % 6.1 % N 1-9 Eosinophil % 0.8 % N 0-6 Basophil % 0.9 % N 0-2 Nucleated Red Blood Cells % 0 N Comp Metabolic Panel 04/26/2017 [facility] Sodium 138 mmol/L N 133-[address] [place] [address] [phone] Potassium 4.7 mmol/L N 3.5-5.0 Chloride 101 mmol/L N 101-111 Co2 Carbon Dioxide 32 mmol/L N 22-32 Anion Gap 5 mmol/L N 2-11 Glucose 94 mg/dL N 70-100 Blood Urea Nitrogen 23 mg/dL N 6-24 Creatinine 0.97 mg/dL High 0.51-0.95 BUN/Creatinine Ratio 23.7 High 8-20 Calcium 9.6 mg/dL N 8.6-10.3 Total Protein 6.1 g/dL Low 6.4-8.9 Albumin 3.8 g/dL N 3.2-5.2 Globulin 2.3 g/dL N 2-4 Albumin/Globulin Ratio 1.7 N 1-3 Total Bilirubin 0.60 mg/dL N 0.2-1.0 Alkaline Phosphatase 35 U/L N 34-104 Alt 13 U/L N 7-52 Ast 14 U/L N 13-39 Egfr Non- 54.5 N >60 Egfr 70.0 N >60 20 Laboratory test 08/10/2015 [facility] TSH (Thyroid 1.62 N 0.34 -5.60 [address] Stim Horm) ?IU/[place] [address] [phone] CBC Auto Diff 08/10/2015 [facility] White Blood 4.3 Low 4.8- 10.[address] Count 10^3/[place] [address] [phone] Red Blood Count 3.64 10^6/uL Low 4.0-5.4 Hemoglobin 11.7 g/dL Low 12.0-16.0 Hematocrit 36 % N 35-47 Mean Corpuscular Volume 98 fL High 80-97 Mean Corpuscular Hemoglobin 32 pg High 27-31 Mean Corpuscular HGB Conc 33 g/dL N 31-36 Red Cell Distribution Width 14 % N 10.5-15 Platelet Count 198 10^3/uL N 150-450 Mean Platelet Volume 8 um3 N 7.4-10.4 Abs Neutrophils 2.1 10^3/uL N 1.5-7.7 Abs Lymphocytes 1.4 10^3/uL N 1.0-4.8 Abs Monocytes 0.4 10^3/uL N 0-0.8 Abs Eosinophils 0.3 10^3/uL N 0-0.6 Abs Basophils 0.1 10^3/uL N 0-0.2 Abs Nucleated RBC 0 10^3/uL N Granulocyte % 49.4 % N 38-83 Lymphocyte % 32.4 % N 25-47 Monocyte % 10.5 % High 1-9 Eosinophil % 6.4 % High 0-6 Basophil % 1.3 % N 0-2 Nucleated Red Blood Cells % 0.1 N Comp Metabolic Panel 08/10/2015 [facility] Sodium 136 mmol/L N 133-[address] [place] [address] [phone] Potassium 4.8 mmol/L N 3.5-5.0 Chloride 101 mmol/L N 101-111 Co2 Carbon Dioxide 31 mmol/L N 22-32 Anion Gap 4 mmol/L N 2-11 Glucose 99 mg/dL N 70-100 Blood Urea Nitrogen 21 mg/dL N 6-24 Creatinine 0.83 mg/dL N 0.51-0.95 BUN/Creatinine Ratio 25.3 High 8-20 Calcium 9.7 mg/dL N 8.6-10.3 Total Protein 6.6 g/dL N 6.4-8.9 Albumin 4.1 g/dL N 3.2-5.2 Globulin 2.5 g/dL N 2-4 Albumin/Globulin Ratio 1.6 N 1-3 Total Bilirubin 0.50 mg/dL N 0.2-1.0 Alkaline Phosphatase 48 U/L N 34-104 Alt 9 U/L N 7-52 Ast 15 U/L N 13-39 Egfr Non- 65.3 N >60 Egfr 84.0 N >60 22 Lipid Profile 08/10/2015 [facility] Triglycerides 97 mg/dL N 23 (Trig/Chol/HDL) [address] [place] [address] [phone] Cholesterol 159 mg/dL N 24 HDL Cholesterol 51.2 mg/dL N 25 LDL Cholesterol 88 mg/dL N 26 Laboratory test 10/06/2014 [facility] Magnesium 2.0 mg/dL N 1.9-2.[address] [place] [address] [phone] Troponin I 0.00 ng/mL N <0.03 27 TSH (Thyroid Stimulating Horm) 1.37 IU/mL N 0.34-5.60 Comp Metabolic Panel 10/06/2014 [facility] Sodium 138 mmol/L N 133-[address] [place] [address] [phone] Potassium 4.2 mmol/L N 3.5-5.0 Chloride 104 mmol/L N 101-111 Co2 Carbon Dioxide 30 mmol/L N 22-32 Anion Gap 4 mmol/L N 2-11 Glucose 116 mg/dL High 70-100 Blood Urea Nitrogen 21 mg/dL N 6-24 Creatinine 0.77 mg/dL N 0.51-0.95 BUN/Creatinine Ratio 27.3 High 8-20 Calcium 9.1 mg/dL N 8.6-10.3 Total Protein 6.5 g/dL N 6.4-8.9 Albumin 3.9 g/dL N 3.2-5.2 Globulin 2.6 g/dL N 2-4 Albumin/Globulin Ratio 1.5 N 1-3 Total Bilirubin 0.30 mg/dL N 0.2-1.0 Alkaline Phosphatase 43 U/L N 34-104 Alt 8 U/L N 7-52 Ast 13 U/L N 13-39 Egfr Non- 71.4 N >60 Egfr 91.8 N >60 28 CBC Auto Diff 10/06/2014 [facility] White Blood 5.3 10^3/uL N 4.8-10.[address] [place] [address] [phone] Red Blood Count 3.34 10^6/uL Low 4.0-5.4 Hemoglobin 10.9 g/dL Low 12.0-16.0 Hematocrit 33 % Low 35-47 Mean Corpuscular Volume 97 fL N 80-97 Mean Corpuscular Hemoglobin 33 pg High 27-31 Mean Corpuscular HGB Conc 33 g/dL N 31-36 Red Cell Distribution Width 14 % N 10.5-15 Platelet Count 182 10^3/uL N 150-450 Mean Platelet Volume 8 um3 N 7.4-10.4 Abs Neutrophils 3.4 10^3/uL N 1.5-7.7 Abs Lymphocytes 1.1 10^3/uL N 1.0-4.8 Abs Monocytes 0.5 10^3/uL N 0-0.8 Abs Eosinophils 0.4 10^3/uL N 0-0.6 Abs Basophils 0.1 10^3/uL N 0-0.2 Abs Nucleated RBC 0 10^3/uL N Granulocyte % 62.8 % N 38-83 Lymphocyte % 20.2 % Low 25-47 Monocyte % 9.4 % High 1-9 Eosinophil % 6.6 % High 0-6 Basophil % 1.0 % N 0-2 Nucleated Red Blood Cells % 0 N Urine Culture And 10/06/2014 [facility] Urine Culture (SEE NOTE ) [address] [place] [address] [phone] Urinalysis Profile 10/06/2014 [facility] Urine Color Yellow N [address] [place] [address] [phone] Urine Appearance Cloudy N Urine Specific [place] 1.013 N 1.010-1.030 Urine pH 6.0 N 5-9 Urine Urobilinogen Negative N Negative Urine Ketones Negative N Negative Urine Protein Negative N Negative Urine Leukocytes 2+ Abnormal Negative Urine Blood 1+ Abnormal Negative Urine Nitrite Negative N Negative Urine Bilirubin Negative N Negative Urine Glucose Negative N Negative Urine White Blood Cell 2+(11-20/hpf) Abnormal Absent Urine Red Blood Cell 3+(>10/hpf) Abnormal Absent Urine Bacteria 1+ Abnormal Absent Urine Squamous Epithelial Cell Present Abnormal Absent CBC No Diff 07/08/2014 [facility] White Blood 4.7 10^3/uL Low 4.8-10.[address] [place] [address] [phone] Red Blood Count 3.74 10^6/uL Low 4.0-5.4 Hemoglobin 11.8 g/dL Low 12.0-16.0 Hematocrit 36 % N 35-47 Mean Corpuscular Volume 96 fL N 80-97 Mean Corpuscular Hemoglobin 32 pg High 27-31 Mean Corpuscular HGB Conc 33 g/dL N 31-36 Red Cell Distribution Width 14 % N 10.5-15 Platelet Count 203 10^3/uL N 150-450 Mean Platelet Volume 8 um3 N 7.4-10.4 Laboratory test 07/08/2014 [facility] Creatine Kinase 49 U/L N 10-223 31 finding [address] [place] [address] [phone] TSH (Thyroid Stimulating Horm) 0.95 IU/mL N 0.34-5.60 32 Lipid Profile 07/08/2014 [facility] Triglycerides 110 mg/dL N 33 (Trig/Chol/HDL) [address] [place] [address] [phone] Cholesterol 163 mg/dL N 34 HDL Cholesterol 49.3 mg/dL N 35 LDL Cholesterol 92 mg/dL N 36 Comp Metabolic Panel 07/08/2014 [facility] Sodium 138 mmol/L N 133-145 [address] [place] [address] [phone] Potassium 4.5 mmol/L N 3.7-5.6 Chloride 104 mmol/L N 101-111 Co2 Carbon Dioxide 30 mmol/L N 22-32 Anion Gap 4 mmol/L N 2-11 Glucose 96 mg/dL N 70-100 Blood Urea Nitrogen 15 mg/dL N 6-24 Creatinine 0.78 mg/dL N 0.51-0.95 BUN/Creatinine Ratio 19.2 N 8-20 Calcium 9.3 mg/dL N 8.6-10.3 Total Protein 6.6 g/dL N 6.4-8.9 Albumin 4.2 g/dL N 3.2-5.2 Globulin 2.4 g/dL N 2-4 Albumin/Globulin Ratio 1.8 N 1-3 Total Bilirubin 0.40 mg/dL N 0.2-1.0 Alkaline Phosphatase 44 U/L N 34-104 Alt 9 U/L N 7-52 Ast 14 U/L N 13-39 Egfr Non- 70.4 N >60 Egfr 90.5 N >60 37 1 Because ethnic data is not always readily available, this report includes an eGFR for both -Americans and non- Americans. The National Kidney Disease Education Program (NKDEP) does not endorse the use of the MDRD equation for patients that are not between the ages of 18 and 70, are , have extremes of body size, muscle mass, or nutritional status, or are non- or non-. According to the National Kidney Foundation, irrespective of diagnosis, the stage of the disease is based on the level of kidney function: Stage Description GFR(mL/min/1.73 m(2)) 1 Kidney damage with normal or decreased GFR 90 2 Kidney damage with mild decrease in GFR 60-89 3 Moderate decrease in GFR 30-59 4 Severe decrease in GFR 15-29 5 Kidney failure <15 (or dialysis) 2 Because ethnic data is not always readily available, this report includes an eGFR for both -Americans and non- Americans. The National Kidney Disease Education Program (NKDEP) does not endorse the use of the MDRD equation for patients that are not between the ages of 18 and 70, are , have extremes of body size, muscle mass, or nutritional status, or are non- or non-. According to the National Kidney Foundation, irrespective of diagnosis, the stage of the disease is based on the level of kidney function: Stage Description GFR(mL/min/1.73 m(2)) 1 Kidney damage with normal or decreased GFR 90 2 Kidney damage with mild decrease in GFR 60-89 3 Moderate decrease in GFR 30-59 4 Severe decrease in GFR 15-29 5 Kidney failure <15 (or dialysis) 3 ADDITIONAL INFORMATION This test was developed and its performance characteristics determined by [facility] in a manner consistent with CLIA requirements. This test has not been cleared or approved by the U.S. Food and Drug Administration. Test Performed by: [facility] [address] [place] [address] 4 Copy Result to: CURTIS MARIE ([id number]) [id number] 5 Because ethnic data is not always readily available, this report includes an eGFR for both -Americans and non- Americans. The National Kidney Disease Education Program (NKDEP) does not endorse the use of the MDRD equation for patients that are not between the ages of 18 and 70, are , have extremes of body size, muscle mass, or nutritional status, or are non- or non-. According to the National Kidney Foundation, irrespective of diagnosis, the stage of the disease is based on the level of kidney function: Stage Description GFR(mL/min/1.73 m(2)) 1 Kidney damage with normal or decreased GFR 90 2 Kidney damage with mild decrease in GFR 60-89 3 Moderate decrease in GFR 30-59 4 Severe decrease in GFR 15-29 5 Kidney failure <15 (or dialysis) 6 Copy Result to: CURTIS MARIE ([id number]) [id number] Normal Range 180 to 914 Indeterminate Range 145 to 180 Deficient Range <145 8 Therapeutic target for the treatment of diabetes mellitus patients is <7% HBA1C, and in selective patients <6.0%. Please refer to [employer] diabetic care guidelines for further information. 9 Copy Result to: CURTIS MARIE ([id number]) [id number] 10 Because ethnic data is not always readily available, this report includes an eGFR for both -Americans and non- Americans. The National Kidney Disease Education Program (NKDEP) does not endorse the use of the MDRD equation for patients that are not between the ages of 18 and 70, are , have extremes of body size, muscle mass, or nutritional status, or are non- or non-. According to the National Kidney Foundation, irrespective of diagnosis, the stage of the disease is based on the level of kidney function: Stage Description GFR(mL/min/1.73 m(2)) 1 Kidney damage with normal or decreased GFR 90 2 Kidney damage with mild decrease in GFR 60-89 3 Moderate decrease in GFR 30-59 4 Severe decrease in GFR 15-29 5 Kidney failure <15 (or dialysis) 11 Desirable <150 Borderline high 150-199 High 200-499 Very High >500 12 Desirable <200 Borderline high 200-239 High >239 13 Low <40 Desirable: 40-60 High: >60 14 Desirable: <100 mg/dL Near Optimal: 100-129 mg/dL Borderline High: 130-159 mg/dL High: 160-189 mg/dL Very High: >189 mg/dL 15 [id number] FASTING Copy Result to: VEELIN ZHANG ([id number]) 16 Normal Range 180 to 914 Indeterminate Range 145 to 180 Deficient Range <145 17 [id number] FASTING Copy Result to: EVELIN ZHANG ([id number]) 18 Therapeutic target for the treatment of diabetes Mellitus patients is <7% HBA1C, and in selective patients <6.0%.Please refer to [employer] Diabetic care guidelines for further information. 19 Copy Result to: SOFY MEJÍA ([id number]) 20 Because ethnic data is not always readily available, this report includes an eGFR for both -Americans and non- Americans. The National Kidney Disease Education Program (NKDEP) does not endorse the use of the MDRD equation for patients that are not between the ages of 18 and 70, are , have extremes of body size, muscle mass, or nutritional status, or are non- or non-. According to the National Kidney Foundation, irrespective of diagnosis, the stage of the disease is based on the level of kidney function: Stage Description GFR(mL/min/1.73 m(2)) 1 Kidney damage with normal or decreased GFR 90 2 Kidney damage with mild decrease in GFR 60-89 3 Moderate decrease in GFR 30-59 4 Severe decrease in GFR 15-29 5 Kidney failure <15 (or dialysis) 21 FASTING Copy Result to: EVELIN ZHANG ([id number]) 22 Because ethnic data is not always readily available, this report includes an eGFR for both -Americans and non- Americans. The National Kidney Disease Education Program (NKDEP) does not endorse the use of the MDRD equation for patients that are not between the ages of 18 and 70, are , have extremes of body size, muscle mass, or nutritional status, or are non- or non-. According to the National Kidney Foundation, irrespective of diagnosis, the stage of the disease is based on the level of kidney function: Stage Description GFR(mL/min/1.73 m(2)) 1 Kidney damage with normal or decreased GFR 90 2 Kidney damage with mild decrease in GFR 60-89 3 Moderate decrease in GFR 30-59 4 Severe decrease in GFR 15-29 5 Kidney failure <15 (or dialysis) 23 Desirable <150 Borderline high 150-199 High 200-499 Very High >500 24 Desirable <200 Borderline high 200-239 High >239 25 Low <40 Desirable: 40-60 High: >60 26 Desirable: <100 mg/dL Near Optimal: 100-129 mg/dL Borderline High: 130-159 mg/dL High: 160-189 mg/dL Very High: >189 mg/dL 27 Reference Range and Interpretation: TnI (ng/mL) Interpretation Less Than 0.03 ng/mL Not supportive of diagnosis of PR 0.03 - 0.50 ng/mL Indeterminate: suggest serial studies if clinically indicated. Greater than 0.5 ng/mL Consistent with diagnosis of PR 28 Because ethnic data is not always readily available, this report includes an eGFR for both -Americans and non- Americans. The National Kidney Disease Education Program (NKDEP) does not endorse the use of the MDRD equation for patients that are not between the ages of 18 and 70, are , have extremes of body size, muscle mass, or nutritional status, or are non- or non-. According to the National Kidney Foundation, irrespective of diagnosis, the stage of the disease is based on the level of kidney function: Stage Description GFR(mL/min/1.73 m(2)) 1 Kidney damage with normal or decreased GFR 90 2 Kidney damage with mild decrease in GFR 60-89 3 Moderate decrease in GFR 30-59 4 Severe decrease in GFR 15-29 5 Kidney failure <15 (or dialysis) 29 RUN DATE: 10/08/14 [facility] LAB LIVE PAGE 1 RUN TIME: [address] [place] [id number] Specimen Inquiry Name: RACHAEL AMIN : [address]: Susan Henry MD Acct: [id number] Unit: [id number] AGE: 84 Location: ED Re10/06/14 SEX: F Status: DEP ER SPEC: [id number] MIC: 10/06/[address] [facility] [address]: Susan Henry MD REQ: [id number] RECD: 10/06/14 STATUS: LUANA VACA DR: Evelin Mejía MD _ SOURCE: URINE [facility]: ORDERED: Urine Culture Procedure Result Verified Site Urine Culture Final 10/08/14- 0906 ML Organism 1 ESCHERICHIA COLI 1. ESCHERICHIA COLI M.I.C. RX --------- ------ Ampicillin 4 S Cefazolin <=4 S Cefepime <=1 S Ceftriaxone <=1 S Ciprofloxacin <=0.25 S Gentamicin <=1 S Levofloxacin <=0.12 S Meropenem <=0.25 S Nitrofurantoin <=16 S Tetracycline <=1 S Pipercillin/Tazobactam <=4 S Trimethoprim/Sulfamethoxazole <=20 S Amoxicillin/Clavulanic Acid <=2 S Aztreonam <=1 S Contact the Microbiology Department for any additional antibiotic reporting. END OF REPORT * ML=Testing performed at Main Lab DEPARTMENT OF PATHOLOGY, [address] [place] [address] Gil Sosa M.D. Director [facility] # [id number] 30 FASTING 31 FASTING 32 FASTING 33 Desirable <150 Borderline high 150-199 High 200-499 Very High >500 34 Desirable <200 Borderline high 200-239 High >239 35 Low <40 Desirable: 40-60 High: >60 36 Desirable <100 Near Optimal 100-129 Borderline high 130-159 High 160-189 Very High >189 37 Because ethnic data is not always readily available, this report includes an eGFR for both -Americans and non- Americans. The National Kidney Disease Education Program (NKDEP) does not endorse the use of the MDRD equation for patients that are not between the ages of 18 and 70, are , have extremes of body size, muscle mass, or nutritional status, or are non- or non-. According to the National Kidney Foundation, irrespective of diagnosis, the stage of the disease is based on the level of kidney function: Stage Description GFR(mL/min/1.73 m(2)) 1 Kidney damage with normal or decreased GFR 90 2 Kidney damage with mild decrease in GFR 60-89 3 Moderate decrease in GFR 30-59 4 Severe decrease in GFR 15-29 5 Kidney failure <15 (or dialysis) Procedures Date Code Description Status 11/14/201842480 Inject/Drain Joint/Bursa Major W/O US Completed 08/30/2018 Inject/Drain Joint/Bursa Major W/O US Completed 08/13/2018 Inject/Drain Joint/Bursa Major W/O US Completed 05/29/2018 99331 TKR Total Knee Replacement Completed 05/29/2018 50415 TKR Total Knee Replacement Completed 04/10/2018 12714 Stress Test Completed 04/10/2018 29390 Myocardial Perfusion Imaging Tomographic (Spect) Completed Multiple Studies 04/05/2018 93008 ECHO Transthoracic, Real-Time 2D With Doppler And Completed Color Flow 04/05/2018 44636 ECHO Transthoracic, Real-Time 2D With Doppler And Completed Color Flow 04/02/2018 37854 EKG Tracing & Interpretation Completed 06/08/2017 25170 EKG Tracing & Interpretation Completed 04/11/2017 [id number] Mammogram Completed 04/11/2017 [id number] Bone Mineral Density Test Completed 11/16/2016 20911 Inject/Drain Joint/Bursa Major W/O US Completed 11/09/2016 27500 Inject/Drain Joint/Bursa Major W/O US Completed 11/02/2016 70287 Inject/Drain Joint/Bursa Major W/O US Completed 09/26/2016 03226 Inject/Drain Joint/Bursa Major W/O US Completed 06/07/2016 24910 Treadmill Interp/Report Only Completed 06/07/2016 58392 Stress Test Supervsn W/Out I/R Completed 04/22/2016 79812 EKG Tracing & Interpretation Completed 04/02/2016 20679 Holter Monitor Review (24 hr)dr review & interp only Completed 03/30/2016 29776 ECHO Transthorasic Realtime 2D W Doppler & Color Flow Completed Hosp 07/20/2015 77277 EKG Tracing & Interpretation Completed 08/12/2014 73155 EKG Tracing & Interpretation Completed 11/23/2012 71422 Rad Exam; Hip Unilat Completed 11/23/2012 62325 Rad Exam; Pelvis Completed 11/23/2012 33005 Inject/Drain Joint/Bursa Major W/O US Completed 08/17/2009 14903 Rad Exam; Hip Unilat Completed 08/17/2009 96127 Rad Exam; Pelvis Completed Encounters Type Date Location Provider Dx Diagnosis Office Visit 08/30/2018 [facility] Josafat Baker M19.011 Primary 10:00a Of Nikihl Mcdonald MD osteoarthritis, right shoulder Office Visit 08/16/2018 [facility] Josafat Baker M19.011 Primary 9:45a Of Nikhil Mcdonald MD osteoarthritis, right shoulder Office Visit 05/31/2018 [facility] R33.9 Retention of 2:31p Assoc,pc [place], [place] urine, unspecified Hospitalists I10 Essential (primary) hypertension E78.5 Hyperlipidemia, unspecified Z96.651 Presence of right artificial knee joint Office Visit 2018 [facility] I10 Essential 2:31p Assoc,NEIL Mckeon (primary) Hospitalists hypertension E78.5 Hyperlipidemia, unspecified Z96.651 Presence of right artificial knee joint Office Visit 05/29/2018 [facility] Z47.1 Aftercare 2:31p Assoc,chip Bull, MANAGER QUALITY following joint Hospitalists replacement surgery I10 Essential (primary) hypertension E78.5 Hyperlipidemia, unspecified Z96.651 Presence of right artificial knee joint Office Visit 04/12/2018 9:00a [facility] Salima Rasmussen 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 Office Visit 04/02/2018 3:20p [facility] Evelin Zhang, I25.10 Athsc heart Of Clau Mcginnis disease of [place] coronary artery w/o ang pctrs I10 Essential (primary) hypertension E78.00 Pure hypercholesterolemia, unspecified I35.0 Nonrheumatic aortic (valve) stenosis I34.0 Nonrheumatic mitral (valve) insufficiency I36.1 Nonrheumatic tricuspid (valve) insufficiency Z01.810 Encounter for preprocedural cardiovascular examination M17.0 Bilateral primary osteoarthritis of knee Office Visit 03/02/2018 8:45a Orthopedic Laura M17.0 Bilateral primary Services Of Ras Manriquez osteoarthritis of [facility]. 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 R5[place] Headache Hospitalists R53.1 Weakness Z86.73 Prsnl hx of TIA (TIA), and cereb infrc w/o resid deficits I10 Essential (primary) hypertension Office Visit 03/02/2017 9:17a [facility] Seb Jones M.D. Office Visit 03/01/2017 2:24p [facility], Roberta Pillai R51 Headache Hospitalists SHARONA Noble R53.1 Weakness Z86.73 Prsnl hx of TIA (TIA), and cereb infrc w/o resid deficits I10 Essential (primary) hypertension Office Visit 10/24/2016 2:45p Orthopedic Laura M17.0 Bilateral primary Services Of Ras Manriquez osteoarthritis of [facility]. knee M17.0 Bilateral primary osteoarthritis of knee M25.461 Effusion, right knee M25.462 Effusion, left knee Office Visit 09/26/2016 1:30p [facility] Laura Declan, M25.561 Pain in right Of C.M.A. M.D. knee M25.562 Pain in left knee M25.462 Effusion, left knee M25.461 Effusion, right knee M17.0 Bilateral primary osteoarthritis of knee Office Visit 06/07/2016 9:03a [facility] Abril Moses, R68.84 Jaw pain Assoc, Hospitalists M.DJaswant I25.118 Athscl heart disease of [place] cor art w oth ang pctrs I10 Essential (primary) hypertension E78.5 Hyperlipidemia, unspecified Office Visit 06/06/2016 9:01a [facility] Leo Tran, R68.84 Jaw pain Assoc, Hospitalists N.P. I25.118 Athscl heart disease of [place] cor art w ot ang pctrs I10 Essential (primary) hypertension E78.5 Hyperlipidemia, unspecified Office Visit 04/22/2016 9:40a [facility] Evelin Zhang, R00.2 Palpitations Of [facility] M.Jagruti I25.2 Old myocardial infarction I34.0 Nonrheumatic mitral (valve) insufficiency I36.1 Nonrheumatic tricuspid (valve) insufficiency R42 Dizziness and giddiness I10 Essential (primary) hypertension Office Visit 07/20/2015 10:45a [facility] Evelin Zhang, I25.10 Athscl heart Of [facility] Mely.Jgaruti disease of [place] coronary artery w/o ang pctrs I10 Essential (primary) hypertension E78.0 Pure hypercholesterolemia Office Visit 08/12/2014 [place] Evelin Zhang, 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 Localized Pelvic & Thigh 726.5 Enthesopathy Of Hip Region Plan of Treatment Future Appointment(s):02/13/2019 8:45 am - Laura Manriquez M.D. at [facility]11/29/2018 9:15 am - Josafat Mcdonald MD at [facility]11/14/2018 - Laura Manriquez M.D.M25.562 Pain in left kneeFollow up:Follow up: 3 upvqdyS99.462 Effusion, left kneeM17.12 Unilateral primary osteoarthritis, left knee
[2018-11-23 19:35] LABS: ABS Basophils 0.1 10^3/ul (0-0.2); ABS Eosinophils 0.2 10^3/ul (0-0.6); ABS Lymphocytes 1.1 10^3/ul (1.0-4.8); ABS Monocytes 0.6 10^3/ul (0-0.8); ABS Neutrophils 3.4 10^3/ul (1.5-7.7); ABS Nucleated RBC 0 10^3/ul; Eosinophil % 3.3 %; Hematocrit 32 % (35-47); Hemoglobin 10.4 g/dl (12.0-16.0); Lymphocyte % 20.7 %; Mean Corpuscular HGB Conc 33 g/dl (31-36); Mean Corpuscular Hemoglobin 32 pg (27-31); Mean Corpuscular Volume 98 fL (80-97); Mean Platelet Volume 7.7 fL (7.4-10.4); Nucleated Red Blood Cells % 0; Platelet Count 207 10^3/ul (150-450); Red Blood Count 3.22 10^6/ul (4.00-5.40); Red Cell Distribution Width 14 % (10.5-15); White Blood Count 5.4 10^3/ul (3.5-10.8)
[2018-11-23] MEDS ORDERED: traMADol TAB* 50 MG PO ONE (23:39)
[2018-11-23 23:54] VITALS: BP 121/79
--- NOTE | 2018-11-24 00:05 | ED ---
Progress - Progress Note Progress Note: CT Pelvis reveals, per radiologist, IMPRESSION: 1. No pelvic traumatic abnormalities. 2. Leiomyomatous uterus. ED physician has reviewed this radiology report. CT LE reveals, per radiologist, IMPRESSION: 1. Left gluteal intramuscular hematoma. 2. Anatomically aligned total left hip arthroplasty. ED physician has reviewed this radiology report. We reviewed the CT results with the patient. Patient was able to ambulate with a walker. Course/Dx - Course Course Of Treatment: Patient was signed out by Dr. Frankel at end of shift. We reviewed the CT results with the patient. Patient was able to ambulate in the ED with a walker. As such, patient will be discharged with a dx of gluteal hematoma and be given a prescription of Ultram, to be taken as needed for pain. Patient is advised to follow up with PCP on Monday. We also do recommend that patient hold her Plavix medication until meeting with PCP. Patient is agreeable to this plan. - Diagnoses Provider Diagnoses: Traumatic hematoma of buttock Discharge - Sign-Out/Discharge Documenting (check all that apply): Patient Departure - Discharge Plan Condition: Stable Disposition: HOME Prescriptions: Tramadol HCl [Ultram] 50 mg PO Q6H PRN #14 tablet MDD 4 PRN Reason: Pain Patient Education Materials: Hematoma (ED) Referrals: Sofy Mejía MD [Primary Care Provider] - 11/26/18 Additional Instructions: Hold your Plavix medication until you meet with your PCP on 11/26/2018. Return to the ED for any new or worsening symptoms. - Attestation Statements Document Initiated by Scribe: Yes Documenting Scribe: Aria Rivas Provider For Whom Gianluca is Documenting (Include Credential): Francisco Brown MD Scribe Attestation: Aria Murray scribed for Francisco Brown MD on 11/24/18 at 0006. Status of Scribe Document: Ready
== END 2018-11-24 00:11 | disposition home or self-care (01) ==
LOC: ED 18:47
DX: S30.0XXA Contusion of lower back and pelvis, initial encounter (principal); W01.0XXA Fall on same level from slipping, tripping and stumbling without subsequent striking against object, initial encounter; Y92.9 Unspecified place or not applicable; Z87.891 Personal history of nicotine dependence; I25.10 Atherosclerotic heart disease of native coronary artery without angina pectoris; I25.2 Old myocardial infarction; I10 Essential (primary) hypertension; Z88.6 Allergy status to analgesic agent; Z95.5 Presence of coronary angioplasty implant and graft
CPT/HCPCS: 36415; 72192; 83605; 85025; 86140; 86850; 86900; 86901; 93005; 99282; 99284; A9270-GY

== ENCOUNTER 2019-03-30 21:57 | Observation (INO) | payer MEDICARE, BC ==
--- NOTE | 2019-03-30 22:37 | ED ---
Syncope/Near Syncope - HPI Summary HPI Summary: This patient is an 88 year old F brought in by ambulance to [facility] accompanied by her family due to a syncopal like episode prior to arrival. Patients daughter states she became weak and diaphoretic and intended to go to bed but was unable to get up. Her daughter states she became unresponsive for a few minutes in her chair and began drooling with drooping of the lip. The daughter denies any stiffness or tremors. Patient recalls feeling dizzy prior to the event. - History Of Current Complaint Chief Complaint: EDSyncope Time Seen by Provider: 03/30/19 22:09 Hx Obtained From: Patient, Family/Historian Research Assistant Onset/Duration: Sudden Onset, Lasting Minutes Timing: Minutes Context: Unwitnessed Activity At Onset: At Rest Associated Head Trauma: No Alleviating Factor(s): Spontaneous Resolution Associated Signs And Symptoms: Dizzy - Allergies/Home Medications Allergies/Adverse Reactions: Allergies Allergy/AdvReac Type Severity Reaction Status Date / Time warfarin Allergy Severe Bleeding Verified 02/06/19 10:20 morphine AdvReac Intermediate GI Upset Verified 02/06/19 10:20 Home Medications: Home Medications Acetaminophen [Tylenol Extra Strength] 500 mg PO QAM PRN 03/30/19 [History Confirmed 03/30/19] Krill/Om-3/Dha/Epa/Phospho/Ast [Krill Oil 500 mg] 1 cap PO DAILY 03/30/19 [ History Confirmed 03/30/19] Metoprolol Succinate XL TAB* [Toprol XL TAB*] 25 mg PO DAILY 03/30/19 [History Confirmed 03/30/19] PMH/Surg Hx/FS Hx/Imm Hx Endocrine/Hematology History: Reports: Hx Thyroid Disease Denies: Hx Diabetes Cardiovascular History: Reports: Hx Angina, Hx Cardiomegaly, Hx Coronary Artery Disease, Hx Hypercholesterolemia, Hx Hypertension, Hx Myocardial Infarction - HI x2 1995, Hx Peripheral Vascular Disease Denies: Hx Congestive Heart Failure, Hx Pacemaker/ICD, Hx Valvular Heart Disease Comment Only: Other Cardiovascular Problems/Disorders - 2 stents Respiratory History: Reports: Other Respiratory Problems/Disorders - seasonal ALLERGIES, MED'S MADE HER DIZZY SO SHE DOESNT TAKE THEM Denies: Hx Asthma, Hx Chronic Obstructive Pulmonary Disease (COPD) GI History: Reports: Hx Gastroesophageal Reflux Disease, Hx Hiatal Hernia, Hx Obstructive Bowel - with colon resection History: Denies: Hx Dialysis, Hx Renal Disease Musculoskeletal History: Reports: Hx Arthritis, Other Musculoskeletal History - Bilat hip replacement Sensory History: Reports: Hx Contacts or Glasses, Hx Hearing Aid, Hx Hearing Problem, 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 Denies: Hx Cataracts, Hx Eye Injury, Hx Eye Prosthesis, Hx Glaucoma, Hx Legally Blind, Hx Macular Degeneration, Hx Vision Problem, Hx Deafness Opthamlomology History: Reports: Hx Contacts or Glasses, 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 Denies: Hx Cataracts, Hx Eye Injury, Hx Eye Prosthesis, Hx Glaucoma, Hx Legally Blind, Hx Macular Degeneration, Hx Vision Problem Neurological History: Reports: Hx Headaches, Other Neuro Impairments/Disorders - temporal arteritis 2016 Denies: Hx Dementia, Hx Seizures Psychiatric History: Reports: Hx Anxiety, Hx Depression Denies: Hx Panic Disorder - Cancer History Hx Chemotherapy: No Hx Radiation Therapy: No - Surgical History Surgery Procedure, Year, and Place: CARDIAC CATH WITH STENTS, BILATERAL HIP REPLACEMENT, colon resection Hx Anesthesia Reactions: No - Immunization History Date of Tetanus Vaccine: up to date Date of Influenza Vaccine: 2014 Infectious Disease History: No Infectious Disease History: Denies: Traveled Outside the [place] in Last 30 Days - Family History Known Family History: Positive: Cardiac Disease Family History: FHx of breast CA - Social History Alcohol Use: Rare Substance Use Type: Reports: None Hx Tobacco Use: Yes - QUIT 1995 Smoking Status (MU): Former Smoker Type: Cigarettes Amount Used/How Often: 1ppd Have You Smoked in the Last Year: No Review of Systems Positive: Skin Diaphoresis Neurological: Other - dizzy, drooling, facial droop Positive: Syncope All Other Systems Reviewed And Are Negative: Yes Physical Exam - Summary Physical Exam Summary: VITAL SIGNS: Reviewed. GENERAL: Patient is a well-developed and nourished female who is lying comfortable in the stretcher. Patient is not in any acute respiratory distress. HEAD AND FACE: No signs of trauma. No ecchymosis, hematomas or skull depressions. No sinus tenderness. EYES: PERRLA, EOMI x 2, No injected conjunctiva, no nystagmus. EARS: Hearing grossly intact. Ear canals and tympanic membranes are within normal limits. MOUTH: Oropharynx within normal limits. NECK: Supple, trachea is midline, no adenopathy, no JVD, no carotid bruit, no c- spine tenderness, neck with full ROM CHEST: Symmetric, no tenderness at palpation LUNGS: Clear to auscultation bilaterally. No wheezing or crackles. CVS: Regular rate and rhythm, S1 and S2 present, no murmurs or gallops appreciated. ABDOMEN: Soft, non-tender. No signs of distention. No rebound no guarding, and no masses palpated. Bowel sounds are normal. EXTREMITIES: FROM in all major joints, no edema, no cyanosis or clubbing. NEURO: Alert and oriented x 3. No acute neurological deficits. Speech is normal and follows commands. SKIN: Dry and warm Triage Information Reviewed: Yes Vital Signs On Initial Exam: Initial Vitals Temp Pulse Resp BP Pulse Ox 98.7 F 57 16 136/80 97 03/30/19 22:01 03/30/19 22:01 03/30/19 22:01 03/30/19 22:01 03/30/19 22:01 Vital Signs Reviewed: Yes - [place] Coma Scale Best Eye Response: 4 - Spontaneous Best Motor Response: 6 - Obeys Commands Best Verbal Response: 5 - Oriented Coma Scale Total: 15 Diagnostics - Vital Signs Vital Signs Temp Pulse Resp BP Pulse Ox 03/30/19 22:15 56 03/30/19 22:06 58 14 96 03/30/19 22:05 59 17 136/80 96 03/30/19 22:01 98.7 F 57 16 136/80 97 - Laboratory Result Diagrams: 03/30/19 22:43 03/30/19 22:43 Lab Statement: Any lab studies that have been ordered have been reviewed, and results considered in the medical decision making process. - CT Brain CT CT Interpretation Completed By: Radiologist Summary of CT Findings: 1. Moderate volume loss and small vessel ischemic changes. 2. No acute intracranial abnormality. 3. Sinus disease. ED Physician has reviewed this report. - EKG 2207 Cardiac Rate: Bradycardia - 57 BPM EKG Rhythm: Sinus Bradycardia - Normal axis. Normal interval. No ischemic changes. Course/Dx Course Of Treatment: 88 year old F brought in by ambulance to [facility] accompanied by her family due to a syncopal like episode prior to arrival. Her daughter states she became unresponsive for a few minutes in her chair and began drooling with drooping of the lip. Patient is alert and oriented without neurological deficit. EKG and Bloodwork obtained without significant abnormalities except for a sodium of 125. Brain CT reveals, "1. Moderate volume loss and small vessel ischemic changes. 2. No acute intracranial abnormality. 3. Sinus disease. " Case discussed with Dr. Velasquez, hospitalist, who agrees to admit this patient for observation. - Diagnoses Provider Diagnoses: Syncope - Physician Notifications Discussed Care of Patient With: Thelma Velasquez - hospitalist Time Discussed With Above Provider: 00:00 Instructed by Provider To: Admit As Inpatient Discharge - Sign-Out/Discharge Documenting (check all that apply): Patient Departure - admit Patient Received Moderate/Deep Sedation with Procedure: No - Discharge Plan Condition: Stable Disposition: ADMITTED TO [facility] Referrals: No Primary Care Phys,NOPCP [Primary Care Provider] - - Attestation Statements Document Initiated by Scribe: Yes Documenting Scribe: Dia Castaneda Provider For Whom Scribe is Documenting (Include Credential): Francisco Brown MD Scribe Attestation: IDia, scribed for Francisco Brown MD on 03/31/19 at 0015. Status of Scribe Document: Ready
[2019-03-30 22:49] LABS: ABS Basophils 0.1 10^3/ul (0-0.2); ABS Eosinophils 0.2 10^3/ul (0-0.6); ABS Lymphocytes 1.1 10^3/ul (1.0-4.8); ABS Monocytes 0.7 10^3/ul (0-0.8); ABS Neutrophils 3.5 10^3/ul (1.5-7.7); Eosinophil % 4.3 %; Hematocrit 31 % (35-47); Hemoglobin 10.5 g/dL (12.0-16.0); Lymphocyte % 19.6 %; Mean Corpuscular HGB Conc 34 g/dL (31-36); Mean Corpuscular Hemoglobin 33 pg (27-31); Mean Corpuscular Volume 95 fL (80-97); Mean Platelet Volume 7.5 fL (7.4-10.4); Platelet Count 222 10^3/uL (150-450); Red Cell Distribution Width 13 % (10-15); White Blood Count 5.5 10^3/uL (3.5-10.8)
[2019-03-30 23:02] LABS: Activated Partial Thrombo Time 18.5 seconds (26.0-38.0); INR 0.94 (0.82-1.09)
[2019-03-30 23:08] LABS: Albumin 3.9 g/dL (3.2-5.2); Albumin/Globulin Ratio 1.4 (1-3); BUN/Creatinine Ratio 21.5 (8-20); Calcium 9.3 mg/dL (8.6-10.3); EGFR African American 68.8 (>60); EGFR Non-African American 56.9 (>60); Globulin 2.7 g/dL (2-4); Potassium 4.6 mmol/L (3.5-5.0); Total Bilirubin 0.4 mg/dL (0.2-1.0); Total Protein 6.6 g/dL (6.4-8.9)
[2019-03-30 23:30] LABS: TSH (Thyroid Stimulating Horm) 1.18 mcIU/mL (0.34-5.60)
[2019-03-31] MEDS ORDERED: NS 0.9% 1000 ML** 1,000 ML IV ONE (01:51)
[2019-03-31] MEDS: Enoxaparin(*) 30 MG/0.3 ML SYR SUBCUT SCH (02:50)
--- NOTE | 2019-03-31 04:51 | HP ---
HISTORY AND PHYSICAL: DATE OF ADMISSION: 03/31/19 PRIMARY CARE PROVIDER: Sofy Mejía MD FERRY HAND: Gil Amin, the patient's son. CODE STATUS: DNR. CHIEF COMPLAINT: Syncope. SOURCE OF INFORMATION: HPI is obtained from family and interview of the patient. She is a fair historian. 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 The patient has no recollection of the transient event, but her family reports that they were playing cards and she was in her usual state of health. They reported that she started to feel tired and decided that she wanted to go to bed. She was unable to stand from the table, became acutely diaphoretic and sweaty. Her family came to support her, although they noted she was unresponsive and her face was drooping, found to be drooling and remained this way for 2 to 3 minutes. Her daughter who witnessed the event denies any bladder or bowel incontinence. She had no tremors or shaking. They called the ambulance and the patient subsequently gradually came back to her normal mental status, although was mildly confused after the event. EMERGENCY ROOM COURSE: Her blood pressure is 136/80 on arrival, temperature 98.7, pulse rate 57 sinus, respiratory rate 16, satting 97% on room air. Labs were done, which were notable for a hemoglobin of 10 and a sodium of 125 with a history of a normal baseline. Her glucose was 105. CT head was done, which showed no acute intracranial pathology. An EKG was done that showed sinus bradycardia with no evidence of ischemia and a chest x-ray was done, which showed no acute cardiopulmonary disease. Given the patient's new hyponatremia and risk factors, the hospitalist team was asked to evaluate and admit this patient for observation and syncope workup. PAST MEDICAL HISTORY: 1. CAD, status post distant AZ and PCI. 2. GERD. 3. Hypertension. 4. History of hemorrhagic stroke while on warfarin with residual mild dysphagia and mild cognitive impairment. 5. Depression. 6. Anxiety. PAST SURGICAL HISTORY: 1. Status post bilateral hip replacements. 2. Intestinal surgery. 3. Cataract surgery. MEDICATIONS: 1. Acetaminophen 500 mg p.o. q.a.m. 2. B12 injections 1000 mcg monthly. 3. Ipratropium nasal spray t.i.d. p.r.n. 4. Krill oil soft capsules, 1 cap p.o. daily. 5. Losartan/HCTZ 50/12.5 one tab p.o. q.a.m. 6. Magnesium oxide 400 mg p.o. q.h.s. 7. Nitroglycerin 0.4 mg sublingual q.5 minutes p.r.n. for chest pain. 8. Ocuvite eye vitamins 1 tab p.o. b.i.d. 9. Ranitidine 300 mg p.o. q.h.s. 10. Aspirin 81 mg p.o. daily. 11. Atorvastatin 10 mg p.o. daily. 12. Clopidogrel 75 mg p.o. q.a.m. 13. Isosorbide mononitrate 30 mg extended release q.h.s. 14. Metoprolol succinate 25 mg p.o. daily. 15. Sertraline 50 mg p.o. daily. ALLERGIES: WARFARIN and MORPHINE. 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 She is independent in her ADLs and needs some help with IADLs including driving and bill paying. She ambulates with a walker at baseline. Tobacco use: She is a former [id number] smoker who quit greater than 15 years ago. Alcohol: She is a former social drinker. Illicits: Never. FAMILY HISTORY: Positive for father with cancer of unknown type and mother with heart disease. REVIEW OF SYSTEMS: Constitutional: The patient and her family deny recent fevers, chills, or malaise. HEENT: Denies headaches, vision changes, or sore throat. She does report new and persistent constant postnasal drip. Cardiovascular: Negative for chest pain, palpitations, or orthopnea. Respiratory: Negative for shortness of breath, cough, or new pleuritic chest pain. GI: Negative for nausea, vomiting, diarrhea, or abdominal pain. : Negative for dysuria or hematuria. Musculoskeletal: Negative for any new myalgias, arthralgias, or weakness. Skin: Negative for new rashes or lesions. Neurologic: Positive for acute global weakness, but denies focal weakness or numbness or current confusion. Psychiatric: Denies worsening depression or anxiety. Endocrine: Denies polyuria or polydipsia. Heme: Denies easy bruising , bleeding, or lymphadenopathy. PHYSICAL EXAMINATION GENERAL APPEARANCE: This is a pleasant elderly woman, in no acute distress, hard of hearing; who is awake, alert and oriented to herself, place, date and roughly situation; interactive. VITAL SIGNS: At the time of physical exam, blood pressure is 150/73; pulse rate 60, sinus; respiratory rate 20; satting 98% on room air. HEENT: Pupils are equal and reactive with cataracts. Extraocular muscles are intact. Sclerae anicteric. Mouth with dry mucous membranes. NECK: Supple with no supraclavicular or cervical lymphadenopathy. RESPIRATORY: Has faint dry crackles in bilateral bases that clear with coughing , otherwise clear to auscultation bilaterally. CARDIAC: She has regular rate and rhythm with soft 2/6 systolic murmur heard best in right upper sternal border. ABDOMEN: Belly is soft, nontender, nondistended with normoactive bowel sounds with prior surgical scars. MUSCULOSKELETAL: She moves all 4 extremities spontaneously. EXTREMITIES: No lower extremity edema and 2+ palpable pulses in bilateral DPs. NEURO: Cranial nerves II through XII are intact. She has strength 5/5 in bilateral upper extremities and lower extremities, and sensation is intact bilaterally. She is A and O x3, roughly oriented to situation. SKIN: Without rashes or lesions. DIAGNOSTIC STUDIES/LAB DATA: White blood cell count 5.5, hemoglobin 10.5, hematocrit 31, platelets 222. Sodium is 125, potassium 4.6, chloride 95, carbon dioxide 25, BUN 20, creatinine 0.93, glucose 105. Lactic acid 0.4. Total bili 0.4, AST 16, ALT 9, alkaline phosphatase 58. Troponin 0. TSH 1.18. CT head shows no acute intracranial pathology. Chest x-ray shows no acute cardiopulmonary pathology and EKG shows sinus bradycardia with no active ischemia. Labs, imaging, and EKG reviewed by myself. ASSESSMENT AND PLAN: This is an 88-year-old female with a past medical history of coronary artery disease, history of hemorrhagic stroke, hypertension, gastroesophageal reflux disease, depression, anxiety, who is presenting this evening with a likely syncopal event and found to be hyponatremic. She will be admitted for observation. 1. Syncopal event. The differential is a vasovagal syncopal event versus a transient ischemic attack. The patient does have a vague history of prodrome which leads more towards a syncopal event. Furthermore, she is clinically dehydrated, which may have prompted her for a vasovagal event. We will hydrate the patient with 1 L normal saline and measure orthostatics with physical therapy in the morning. The patient is optimized on DAPT therapy from a transient ischemic attack standpoint. In the event this was a transient ischemic attack, her ABCD2 score is 2, low with overall low risk of subsequent stroke. We will order echocardiogram given soft systolic murmur and no history of cardiac echocardiogram on file. 2. Hyponatremia. The patient is clinically dry suggesting hypovolemic hyponatremia. We will hydrate with 1 liter of normal saline and remeasure. Furthermore, obtain urine sodium and osm. We will hold the patient's HCTZ. 3. Hypertension. We will continue home meds with the exception of HCTZ, losartan 50 mg, isosorbide 30 mg, and metoprolol 25 mg. 4. Coronary artery disease. The patient is optimized on secondary prevention with beta-radha, ARB therapy, aspirin, and statin. 5. History of cerebrovascular accident. As above, optimized on secondary prevention including DAP therapy (or dual antiplatelet therapy). 6. Depression, anxiety. Continue home Zoloft. 7. Gastroesophageal reflux disease. The patient is on ranitidine at home. It will substituted for famotidine. 8. DVT prophylaxis. Lovenox. 9. Code status. DNR. 10. FEN. Heart-healthy diet. 11. Disposition. The patient is stable for admission under observation status to telemetry floor for monitoring after syncopal event in the setting of hyponatremia. Anticipate the patient will be able to be discharged tomorrow with no further events. TIME SPENT: Thirty five minutes were spent on the planning of this admission, over half of that spent directly at the bedside with the patient providing direct patient care. Plan of care was discussed with the patient and family and there are in agreeance with plan. No further questions. [id number]/[facility] #: [id number] MARGOT
[2019-03-31 06:57] LABS: Urine Appearance Clear; Urine Bilirubin Negative (Negative); Urine Blood Negative (Negative); Urine Color Straw; Urine Glucose Negative (Negative); Urine Ketones Negative (Negative); Urine Nitrite Negative (Negative); Urine Protein Negative (Negative); Urine Specific Gravity 1.006 (1.010-1.030); Urine Urobilinogen Negative (Negative)
[2019-03-31] MEDS: Losartan TAB* 25 MG PO SCH (09:27)
[2019-03-31] MEDS: Magnesium Oxide TAB* 400 MG PO SCH (09:28)
[2019-03-31] MEDS: Metoprolol Succinate XL TAB* 25 MG PO SCH (09:28)
[2019-03-31] MEDS: Sertraline* 50 MG TAB PO SCH (09:29)
[2019-03-31] MEDS: Clopidogrel TAB* 75 MG PO SCH (09:29)
[2019-03-31] MEDS: Famotidine TAB* 20 MG PO SCH (09:29)
--- NOTE | 2019-03-31 11:28 | ECHO ---
*[facility]* [place] [address] Fax #: [phone] Transthoracic Echocardiogram Patient: Brennan, Height: 64 in / Rachael Boone 162.6 cm : 1930 Weight: 159.7 lb / Study Date: 03/31/2019 72.6 kg Age: 88 BP: 164 / 77 Gender: F BMI/BSA: 27.5 kg/m^2 HR: 86 bpm / 1.78 m^2 *Milk House Worker: * Roberta Martin [facility] *Referring Physician: * Thelma Velasquez *Reading Physician: * Geremias Carlson MD Indications: Syncope. History: Coronary artery disease. Cerebrovascular accident. Risk factors: Hypertension. Labs, prior tests, procedures, and surgery: Catheterization. There was a stenosis which was treated with a stent. Conclusions Summary: 1. Left ventricle: The cavity size is normal. There is mild concentric hypertrophy. Systolic function is normal. The estimated ejection fraction is 55-60%. Wall motion is normal; there are no regional wall motion abnormalities. Doppler parameters are consistent with abnormal left ventricular relaxation (grade 1 diastolic dysfunction). 2. Left atrium: The atrium is moderately dilated. 3. Right atrium: The atrium is mildly dilated. 4. Mitral valve: The findings are consistent with mild stenosis. 5. Aortic valve: The findings are consistent with mild stenosis. 6. Tricuspid valve: There is mild-moderate regurgitation. 7. Pulmonary arteries: Systolic pressure is mildly increased. 8. Since the prior echocardiogram completed 03/30/16, pertinent changes are prior normal pulmonary artery systolic pressure reported and prior mitral stenosis not reported. Study data: Transthoracic echocardiogram. Procedure: Transthoracic echocardiography was performed. Image quality was fair. Complete 2D, spectral Doppler, and color flow Doppler. Location: Bedside. Patient status: Inpatient. Patient room number: 442-1. Rhythm: Normal sinus rhythm. Findings Left ventricle: The cavity size is normal. There is mild concentric hypertrophy. Systolic function is normal. The estimated ejection fraction is 55-60%. Wall motion is normal; there are no regional wall motion abnormalities. Doppler parameters are consistent with abnormal left ventricular relaxation (grade 1 diastolic dysfunction). Right ventricle: The cavity size is normal. Systolic function is normal. Left atrium: The atrium is moderately dilated. Right atrium: The atrium is mildly dilated. Mitral valve: The annulus is calcified. The leaflets are mildly thickened. The findings are consistent with mild stenosis. There is trace regurgitation. Aortic valve: The valve is trileaflet. The leaflets are mildly calcified. The findings are consistent with mild stenosis. There is no regurgitation. Tricuspid valve: The leaflets are normal thickness. There is mild-moderate regurgitation. Pulmonic valve: The leaflets are normal thickness. There is no evidence of stenosis. There is trivial regurgitation. Aorta: Aortic root: The aortic root is appears normal. Ascending aorta: The ascending aorta is appears normal. Aortic arch: The aortic arch is poorly visualized. Pericardium: A prominent pericardial fat pad is present. There is no significant pericardial effusion. Pulmonary arteries: The main pulmonary artery is normal-sized. Systolic pressure is mildly increased. Systemic veins: Inferior vena cava: The vessel is normal in size. The respirophasic diameter changes are in the normal range (>= 50%). Measurements Left ventricle Value Ref Aortic valve Value Ref EFREN, LAX 4.3 cm 3.8 - 5.2 Edgardo diam, ED 2.1 cm ----- ESD, LAX 2.9 cm 2.2 - 3.5 Peak v, S 2.26 m/sec ----- FS, LAX 32 % 27 - 45 VTI, S 46.7 cm ----- PW, ED, LAX (H) 1.1 cm 0.6 - 0.9 Mean grad, S 10.0 mm Hg ----- FS 32 % 27 - 45 Peak grad, S 20.0 mm Hg ----- PW, ED (H) 1.1 cm 0.6 - 0.9 LVOT/AV, VTI ratio 0.51 ----- E', lat edgardo, TDI (L) 5.7 cm/sec >=10.0 XIMENA, VTI 1.61 cm^2 --- -- E/e', lat edgardo, 21 XIMENA, Vmax 1.14 cm^2 ----- TDI E', med edgardo, TDI (L) 5.4 cm/sec >=7.0 Mitral valve Value Ref E/e', med edgardo, 22 Peak E 1.18 m/sec ----- TDI Peak A 1.47 m/sec ----- E', avg, TDI 5.6 cm/sec Decel time 380 ms ----- E/e', avg, TDI (H) 21 <=14 PHT 148 ms --- -- Mean grad, D 3.0 mm Hg ----- LVOT Value Ref Peak grad, D 9.0 mm Hg ----- Diam, S 2.00 cm Peak E/A ratio 0.8 ----- Area 3.1 cm^2 MVA, PHT 1.5 cm^2 ----- Peak ada, S 0.82 m/sec VTI, S 24.0 cm Pulmonic valve Value Ref Mean grad, S 1 mm Hg Peak v, S 1.22 m/sec ----- SV 75 ml Peak grad, S 6.0 mm Hg ----- SV/bsa 42 ml/m^2 Tricuspid valve Value Ref Ventricular septum Value Ref TR peak v (H) 2.9 m/sec <=2.8 IVS, ED (H) 1.3 cm 0.6 - 0.9 Peak RV-RA grad, S 34 mm Hg ----- Right ventricle Value Ref Aortic root Value Ref EFREN, LAX 2.9 cm Root diam 3.1 cm <4.0 Pressure, S 37 mm Hg Ascending aorta Value Ref Left atrium Value Ref AAo AP diam, S 3.3 cm ----- AP dim, ES (H) 3.90 cm 2.70 - 3.80 Decending aorta Value Ref ML dim, A4C 4.6 cm Daisy peak ada 0.71 m/sec ----- SI dim, A4C 5.0 cm Vol/bsa, ES, 1-p 26 ml/m^2 11 - 40 Pulmonary artery Value Ref A4C Pressure, S 37.0 mm Hg ----- Vol/bsa, ES, A/L (H) 42 ml/m^2 16 - 34 Inferior vena cava Value Ref Right atrium Value Ref Diam 2.1 cm ----- SI dim, ES (H) 5.4 cm 3.4 - 5.3 ML dim, ES, A4C 4.2 cm 2.6 - 4.4 SI dim, ES, A4C (H) 5.4 cm 3.4 - 5.3 Estimated RAP 3 mm Hg Legend: (L) and (H) meseret values outside specified reference range. Prepared and electronically signed by Geremias Carlson MD 03/31/2019 11:27
[2019-03-31 11:38] LABS: BUN/Creatinine Ratio 23.4 (8-20); EGFR African American 85.6 (>60); EGFR Non-African American 70.7 (>60); Potassium 4.7 mmol/L (3.5-5.0)
[2019-03-31] MEDS: Aspirin EC TAB* 81 MG TAB.EC PO SCH (12:53)
[2019-03-31] MEDS ORDERED: IPRATROPIUM BR (NF)0.03% NASAL 1 SPRAY BTL BOTH NARES PRN (13:10)
[2019-03-31] MEDS ORDERED: PTO:IPRATROPIUM BR (NF)0.06% NASAL 1 SPRAY BTL BOTH NARES PRN (15:00)
--- NOTE | 2019-03-31 15:32 | PN ---
Subjective Date of Service: 03/31/19 Interval History: Ms. Amin is feeling okay today. She is still feeling dizzy when standing and ambulating. Her buttocks hurts where she fell on it. Family at bedside. Denies CP, SOB, N/V/D, headache. She does report drinking distilled water, but family refutes this claim. Nursing reports continued dizziness and orthostatic hypotension. Family History: Unchanged from Admission Social History: Unchanged from Admission Past Medical History: Unchanged from Admission Objective Active Medications: Aspirin (Aspirin Ec Tab*) 81 mg PO 1200 CLAUDIA Atorvastatin Calcium (Lipitor*) 10 mg PO BEDTIME CLAUDIA Clopidogrel Bisulfate (Plavix Tab*) 75 mg PO QAM CLAUDIA Enoxaparin Sodium (Lovenox(*)) 30 mg SUBCUT Q24H CLAUDIA Famotidine (Pepcid Tab*) 20 mg PO DAILY CLAUDIA Ipratropium [place] (Ipratropium [place]) 2 spray BOTH NARES TID PRN CONGESTION Isosorbide Mononitrate (Imdur Er Tab*) 30 mg PO BEDTIME CLAUDIA Losartan Potassium (Cozaar Tab*) 50 mg PO DAILY CLAUDIA Magnesium Oxide (Magox 400 Tab*) 400 mg PO DAILY CLAUDIA Metoprolol Succinate (Toprol Xl Tab*) 25 mg PO DAILY CLAUDIA Sertraline HCl (Zoloft*) 50 mg PO DAILY CLAUDIA Vital Signs - 8 hr 03/31/19 03/31/19 03/31/19 07:53 08:00 09:00 Temperature 97.7 F Pulse Rate 66 71 Respiratory 18 18 Rate Blood Pressure 164/77 140/52 (mmHg) O2 Sat by Pulse 99 Oximetry 03/31/19 11:45 Temperature 97.6 F Pulse Rate 55 Respiratory 18 Rate Blood Pressure 148/67 (mmHg) O2 Sat by Pulse 96 Oximetry Oxygen Devices in Use Now: None Appearance: Elderly female laying in bed in NAD Eyes: No Scleral Icterus Ears/Nose/Mouth/Throat: Mucous Membranes Moist Neck: NL Appearance and Movements; NL JVP, Trachea Midline Respiratory: Symmetrical Chest Expansion and Respiratory Effort, Clear to Auscultation Cardiovascular: NL Sounds; No Murmurs; No JVD, RRR Abdominal: NL Sounds; No Tenderness; No Distention Neurological: Alert and Oriented x 3 Lines/Tubes/Other Access: Clean, Dry and Intact Peripheral IV Nutrition: Taking PO's Result Diagrams: 03/30/19 22:43 03/31/19 11:15 Assess/Plan/Problems-Billing Assessment: Ms. 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 - Patient Problems (1) Syncope Code(s): R55 - SYNCOPE AND COLLAPSE Comment: - Differentials include vasovagal event vs hypotension - Positive orthostatic VS d/t drop in diastolic pressure and reported dizziness - Brain CT unremarkable - Echo shows EF 55-60% and grade 1 diastolic dysfunction - Pending PT evaluation - Will give 1 more bag IVF today and recheck orthostatic VS tomorrow (2) Hyponatremia Code(s): E87.1 - HYPO-OSMOLALITY AND HYPONATREMIA Comment: - Likely secondary to HCTZ and mild hypovolemia - Should not resume HCTZ at d/c - Recheck BMP in the AM (3) CAD (coronary artery disease) Code(s): I25.10 - ATHSCL HEART DISEASE OF [place] CORONARY ARTERY W/O ANG PCTRS Comment: - No acute concerns - Continue aspirin, Plavix, atorvastatin, isosorbide, metoprolol (4) Hypertension Code(s): I10 - ESSENTIAL (PRIMARY) HYPERTENSION Comment: - Slightly hypertensive, SBP 140-150s - Will not change medications at this point d/t orthostatic hypotension - Continue metoprolol, losartan (5) Depression Code(s): F32.9 - MAJOR DEPRESSIVE DISORDER, SINGLE EPISODE, UNSPECIFIED Comment: - Continue sertraline (6) DVT prophylaxis Comment: - Lovenox (7) DNR (do not resuscitate) Comment: Status and Disposition: Observation. Anticipate d/c home when medically stable, hopefully tomorrow. Attending: Ruthy Prater
[2019-03-31] MEDS ORDERED: Lactated Ringers 1000 ML Bag* 1,000 ML IV SCH (16:00)
[2019-03-31] MEDS ORDERED: NS 0.9% 1000 ML** 1,000 ML IV SCH (16:15)
[2019-03-31] MEDS ORDERED: Atorvastatin* 10 MG TAB PO SCH (21:00)
[2019-03-31] MEDS ORDERED: Isosorbide Mononitrate ER TAB* 30 MG PO SCH (21:00)
[2019-03-31] MEDS ORDERED: Acetaminophen TAB* 325 MG PO PRN (21:58)
[2019-04-01] MEDS: Enoxaparin(*) 30 MG/0.3 ML SYR SUBCUT SCH (01:46)
[2019-04-01 06:52] LABS: Calcium 9.2 mg/dL (8.6-10.3); EGFR African American 80.7 (>60); EGFR Non-African American 66.7 (>60); Potassium 4.8 mmol/L (3.5-5.0)
[2019-04-01 07:58] VITALS: BP 142/56
[2019-04-01] MEDS: Clopidogrel TAB* 75 MG PO SCH (09:00)
[2019-04-01] MEDS: Magnesium Oxide TAB* 400 MG PO SCH (09:00)
[2019-04-01] MEDS: Losartan TAB* 25 MG PO SCH (09:00)
[2019-04-01] MEDS: Metoprolol Succinate XL TAB* 25 MG PO SCH (09:00)
[2019-04-01] MEDS: Sertraline* 50 MG TAB PO SCH (09:01)
[2019-04-01] MEDS: Famotidine TAB* 20 MG PO SCH (09:01)
[2019-04-01] MEDS: Aspirin EC TAB* 81 MG TAB.EC PO SCH (12:03)
--- NOTE | 2019-04-01 22:37 | DS ---
CC: Dr. Sofy Mejía * DISCHARGE SUMMARY: DATE OF ADMISSION: 03/31/19 DATE OF DISCHARGE: 04/01/19 PRIMARY CARE PROVIDER: Dr. Sofy Mejía. ATTENDING PHYSICIAN: Dr. Siddhartha Amaya * (dictated by Lizzy Brooke NP) PRIMARY DIAGNOSES: 1. Syncope, orthostatic hypotension versus vasovagal. 2. Hyponatremia, thiazide-induced. SECONDARY DIAGNOSES: 1. Coronary artery disease. 2. Hypertension. 3. Depression. STUDIES WHILE IN THE HOSPITAL: 1. EKG on 03/30/19 shows sinus bradycardia with a rate of 57, QTc 433, consistent with previous EKG on file. 2. Brain CT on 03/30/19 reads as moderate volume loss and small vessel ischemic changes. No acute intracranial abnormality. Sinus disease. 3. Chest x-ray on 03/30/19 reads as no active cardiopulmonary disease. 4. Transthoracic echocardiogram on 03/31/19 reads as the left ventricular cavity size is normal. There is mild concentric hypertrophy. Systolic function is normal. The estimated ejection fraction is 55% to 60%. Wall motion is normal. There are no regional wall motion abnormalities. Doppler parameters are consistent with abnormal left ventricular relaxation (grade 1 diastolic dysfunction). The left atrium is moderately dilated. The right atrium is mildly dilated. The mild valve shows findings consistent with mild stenosis. The aortic valve shows findings consistent with mild stenosis. There is [id number] tricuspid regurgitation. Systolic pressure is mildly increased. Since the prior echocardiogram completed on 03/30/16, pertinent changes are prior normal pulmonary artery systolic pressure reported and prior mitral stenosis not reported. HISTORY OF PRESENT ILLNESS AND HOSPITAL COURSE: Ms. Amin is an 88-year-old female with past medical history of CAD, GERD, hypertension, hemorrhagic stroke while on warfarin, depression and anxiety, who presented to the emergency room on 03/31/19 with complaints of syncope. Please see the history and physical by Dr. Velasquez for complete summary of the events leading up to this hospitalization. In short, the patient had been in her normal state of health. The patient was sitting in a chair and was unable to stand. She became diaphoretic. Family reported that she was unresponsive and had facial drooping and drooling. She lost consciousness for approximately 2 to 3 minutes. In the emergency room, vital signs were stable. The patient had lab work which was remarkable for a mild anemia consistent with her baseline and hyponatremia with a sodium of 125. Urinalysis was unremarkable. She had imaging as noted above. Because of the concern for syncope, she was admitted by the hospitalist. The patient was monitored on telemetry without any evidence of arrhythmias. Due to the family description of the event, there was concern that this was a vasovagal syncope. Orthostatic vital signs were done and the patient was noted to be orthostatic due to a drop in diastolic pressure. There was although no concern for TIA or CVA, and the patient was noted to be clinically dry and so was hydrated with IV fluid. Hydrochlorothiazide was held, though other medications were continued. The patient was experiencing dizziness while standing and ambulating. She was seen by Physical Therapy today who reported that the patient did not have any skilled needs. She does report that dizziness has resolved today. She did receive a second liter of normal saline yesterday and sodium today has corrected to 132. Vital signs have been stable. PHYSICAL EXAMINATION: The patient reports feeling well and is anxious to return home. She has no focal neurological deficits. Her heart has a regular rate and rhythm without murmurs, rubs, or gallops. There is mild nonpitting edema to bilateral upper extremities. No edema to bilateral lower extremities. Lung sounds are clear to auscultation without rhonchi, wheezes, or rubs. Physical exam is otherwise benign. Ms. Amin is stable for discharge today. Vital signs are as follows: Temp 98.0, heart rate 59, respiratory rate 16, oxygen saturation 96% on room air, blood pressure 142/56. DISCHARGE MEDICATIONS: Continued medications: 1. Acetaminophen 500 mg p.o. daily p.r.n. pain. 2. Aspirin 81 mg p.o. daily. 3. Atorvastatin 10 mg p.o. at bedtime. 4. Plavix 75 mg p.o. daily. 5. Vitamin B12 1000 mcg IM monthly. 6. Ipratropium 0.03% 2 sprays both nares t.i.d. p.r.n. congestion. 7. Isosorbide mononitrate ER 30 mg p.o. at bedtime. 8. Krill oil 500 mg p.o. daily. 9. Losartan 50 p.o. daily. 10. Magnesium oxide 400 mg p.o. at bedtime. 11. Metoprolol succinate 25 mg p.o. daily. 12. Nitroglycerin 0.4 mg sublingual q.5 minutes p.r.n. angina. 13. Ocuvite 1 tab p.o. b.i.d. 14. Ranitidine 300 mg p.o. at bedtime. 15. Sertraline 50 mg p.o. daily. Discontinued medications: Hydrochlorothiazide. DISCHARGE PLAN: Ms. Amin will be discharged home in the care of her son. Activity will be as tolerated. I have advised the patient that she should use caution when standing from a sitting or lying position due to her known orthostatic hypotension. Diet will be heart-healthy. Medications are noted above. The only change I have made is that I have discontinued her hydrochlorothiazide as this was causing hyponatremia and potentially contributing to her orthostatic hypotension. She can continue taking losartan and I have sent in a prescription for losartan tabs as the patient was previously taking a combo losartan/hydrochlorothiazide pill. I will note that the patient is running slightly hypotensive at this point with systolic pressures in the 130s to 140s, though due to her known orthostatic hypotension, I felt this was appropriate at this time. She can continue her other usual medications and I have not made any further changes. She will need to follow up with her primary care provider in 4 to 7 days. The patient does express concern over edema due to the discontinuation of her diuretic and I have advised the patient that she should monitor for any edema and see her primary care provider if she does note any increasing edema. The patient should return to the emergency room or nearest hospital for any worsening of symptoms, shortness of breath, lightheadedness, dizziness, chest discomfort, high fever, chills, night sweats, loss of consciousness, or any other worrisome signs or symptoms. DISCHARGE CONDITION: Stable. DISCHARGE DISPOSITION: Home. This is a summarized report of a complex medical history and hospital stay. For further details, please see the entire medical record. TIME SPENT: Approximately 50 minutes was spent on this discharge. LIZZY BROOKE, DIRECTOR OF AVIATION [id number]/[facility] #: [id number] MARGOT
== END 2019-04-01 12:20 | disposition home or self-care (01) ==
LOC: ED 21:57 → MEDTELE 03-31 01:46
PROVIDERS: ADMIT Internal Medicine; ATTEND Internal Medicine
DX: R55 Syncope and collapse (principal); I25.10 Atherosclerotic heart disease of native coronary artery without angina pectoris; K21.9 Gastro-esophageal reflux disease without esophagitis; I10 Essential (primary) hypertension; Z86.73 Personal history of transient ischemic attack (TIA), and cerebral infarction without residual deficits; Z79.82 Long term (current) use of aspirin; E87.1 Hypo-osmolality and hyponatremia; Z66 Do not resuscitate; Z88.6 Allergy status to analgesic agent; Z88.3 Allergy status to other anti-infective agents; R42 Dizziness and giddiness; F32.9 Major depressive disorder, single episode, unspecified
CPT/HCPCS: 36415; 70450; 71045; 80048; 80053; 81003; 82550; 83605; 83735; 83935; 84300; 84443; 84484; 85025; 85610; 85730; 93005; 93306; 96360; 96361; 96372; 99284; A9270-GY; G0378; G8978-GP-CI; G8979-GP-CI; G8980-GP-CI; J1650

== ENCOUNTER 2019-09-19 10:18 | Emergency (ER) | payer MEDICARE, BC ==
--- OUTSIDE RECORDS SUMMARY | 2019-09-19 11:37 | XMS REPORT | Continuity of Care Document ---
:1930 External Reference #:[id number] Author Name Laura Manriquez M.D. (transmitted by agent of provider Sabrina Mccallum) Address [address] [place] [address] Care Team Providers Name Role Phone Stan Emmanuel MD - Orthopaedic Care Team Information [employer] Laboratory Assistant [phone] Surgery Sofy Mejía MD - Family Care Team Information [employer] Laboratory Assistant [phone] Medicine Laura Manriquez M.D. - Adult Care Team Information [employer] Laboratory Assistant [phone] Reconstructive Orthopaedic Surgery Problems Active Problems Provider Date Coronary arteriosclerosis Evelin Zhang M.D. Onset: 08/12/2014 Pure hypercholesterolemia Evelin Zhang M.D. Onset: 08/12/2014 Benign essential hypertension Evelin Zhang M.D. Onset: 08/12/2014 Essential hypertension Evelin Zhang M.D. Onset: 07/20/2015 Palpitations Evelin Zhang M.D. Onset: 04/22/2016 Old myocardial infarction Evelin Zhang M.D. Onset: 04/22/2016 Mitral valve disorder Evelin Zhang M.D. Onset: 04/22/2016 Tricuspid valve disorder, non-rheumatic Evelin Zhang M.D. Onset: 04/22/2016 Localized, primary osteoarthritis Laura Manriquez M.D. Onset: 09/26/2016 Aortic valve disorder Evelin Zhang M.D. Onset: 06/08/2017 Other injury of muscle(s) and tendon(s) of Josafat Mcdonald MD Onset: the rotator cuff of right shoulder, subsequent encounter Social History Type Date Description Comments Sex Unknown Tobacco Use Start: Unknown Heavy tobacco smoker (more than 10 cigarettes/day) Cigarette Use Quit 38 Years Ago Smoking Status Reviewed: 08/21/19 Heavy tobacco smoker (more than 10 cigarettes/day) ETOH Use Drinks Alcoholic Beverages Occasionally Tobacco Use Start: Unknown End: Patient is a former smoker Unknown Recreational Drug Use Denies Drug Use Exercise Type/Frequency Does not exercise Allergies, Adverse Reactions, Alerts Active Allergies Reaction Severity Comments Date Morphine 10/21/2013 Prevacid diarrhea 08/12/2014 Warfarin states caused to have stroke 04/12/2018 Medications Active Medications SIG Qnty Indications Ordering Date Provider Ranitidine HCL 1 tablet po twice Blegen, 03/25/2018 150mg daily MD Sofy Tablets Atorvastatin Calcium 1 by mouth every 30tabs [place], 02/05/2018 10mg day Prasanna Esteban MD Tablets Clopidogrel Bisulfate 1 by mouth every 90tabs [place]gen, 01/14/2018 day MD Sofy 75mg Tablets Levothyroxine Sodium 1/2 tablet on Blegen, 10/19/2017Monday and 1 MD Sofy 88mcg Tablets tablet on other 6 days Sertraline 1 1/2 tablet po Blegen, 08/27/2017 50mg daily MD Sofy Isosorbide Dinitrate 1 by mouth every Unknown 30mg day Tablets Clear Eyes Pure Relief one drop in both Unknown For Dry Eyes eyes every 6 hours 0.25% as needed for dry Solution eyes Ciprofloxacin HCL 1 by mouth twice a Unknown 250mg day Tablets Pain Freeze applied to Unknown Gel affected areas as needed Glucosamine 1 tablet po twice Unknown Chondroitin daily Am/PM Delio [place] 1 po daily Unknown [place] 3 Krill Oil Ocuvite Eye 1 tab po bid Unknown Vitamin/Mineral Adult 50+ Capsules Tylenol Arthritis Pain 2 by mouth every Unknown day to twice a day 650mg Tablets ER as needed Cyanocobalamin 1 mL injectiong Unknown 1000mcg/ML once monthly as Solution directed Magnesium 1 po q day Unknown 500mg Tablets Nitrostat one sl q5min up to 25tabs Unknown 0.4mg Tablets 3 doses as needed Sub Metoprolol Succinate 1 tablet by mouth 90tabs Evelin Vicente, ER every day M.DJaswant 25mg Tablets ER 24HR Miralax prn Unknown Aspirin daily Unknown 81mg Medications Administered in Office Medication SIG Qnty Indications Ordering Provider Date Depomedrol 40MG Josafat Mcdonald MD 08/19/2019 Injection Depomedrol 40MG Laura Manriquez M.D. 05/17/2019 Injection Depomedrol 40MG Josafat Mcdonald MD 04/15/2019 Injection Depomedrol 40MG Laura Manriquez M.D. 02/13/2019 Injection Depomedrol 40MG Josafat Mcdonald MD 11/29/2018 Injection Depomedrol 40MG Laura Manriquez M.D. 11/14/2018 Injection Depomedrol 40MG Josafat Mcdonald MD 08/30/2018 Injection Depomedrol 40MG Laura Manriquez M.D. 08/13/2018 Injection Inj, Regadenoson, 0.1 MG Geremias Cralson M.D., 04/10/2018 Injection FACC, FASNC Technetium TC 99M Geremias Carlson M.D., 04/10/2018 Tetrofosmin, Per Unit Dose FACC, FASNC Up To 40 Millicuries Injection Synvisc Or Synvisc-One Laura Manriquez M.D. 11/16/2016 Injection 1 MG Injection Synvisc Or Synvisc-One Laura Manriquez M.D. 11/16/2016 Injection 1 MG Injection Synvisc Or Synvisc-One Laura Manriquez M.D. 11/09/2016 Injection 1 MG Injection Synvisc Or Synvisc-One Laura Manriquez M.D. 11/09/2016 Injection 1 MG Injection Synvisc Or Synvisc-One Laura Manriquez M.D. 11/02/2016 Injection 1 MG Injection Synvisc Or Synvisc-One Laura Manriquez M.D. 11/02/2016 Injection 1 MG Injection Depomedrol 40MG Laura Manriquez M.D. 09/26/2016 Injection Depomedrol 40MG Laura Manriquez M.D. 09/26/2016 Injection Depomedrol 40MG Christopher Ramires M.D. 11/23/2012 Injection Immunizations Description No Information Available Vital Signs Date Vital Result Comment 08/21/2019 10:24am Height 64 inches 5'4" Weight 156.00 lb Respiratory Rate 18 /min Body Temperature 98.6 F Pain Level 8 BMI (Body Mass Index) 26.8 kg/m2 08/19/2019 3:48pm Height 64 inches 5'4" Weight 156.00 lb Heart Rate 68 /min BP Systolic 128 mmHg BP Diastolic 70 mmHg Respiratory Rate 12 /min Pain Level 0 increases with movement BMI (Body Mass Index) 26.8 kg/m2 Results Description No Information Available Procedures Date Code Description Status 08/21/2019 Inject/Drain Joint/Bursa Major W/O US Completed 08/19/2019 Inject/Drain Joint/Bursa Major W/O US Completed 05/17/201945579 Inject/Drain Joint/Bursa Major W/O US Completed 04/16/2019 41334 EKG Tracing & Interpretation Completed 04/15/201990319 Inject/Drain Joint/Bursa Major W/O US Completed 03/31/2019 05638 ECHO Transthorasic Realtime 2D W Doppler & Color Flow Completed Hosp 04/11/2017 [id number] Bone Mineral Density Test Completed 04/11/2017 [id number] Mammogram Completed Medical Devices Description No Information Available Encounters Type Date Location Provider Dx Diagnosis Office Visit 04/16/2019 [facility] Salima Andrade, R55 Syncope and 3:30p Of Party Plan Sales Agent N.P. collapse I36.1 Nonrheumatic tricuspid (valve) insufficiency I35.0 Nonrheumatic aortic (valve) stenosis I25.10 Athscl heart disease of [place] coronary artery w/o ang pctrs E78.00 Pure hypercholesterolemia, unspecified Office Visit 04/01/2019 10:10a [facility] Lizzy Monroyulx, R55 Syncope and Assoc,pc TREASURY ASSISTANT collapse Hospitalists E87.1 Hypo-osmolality and hyponatremia Office Visit 03/31/2019 10:10a [facility] Thelma Velasuqez MD R55 Syncope and Assoc,pc Hospitalists collapse E87.1 Hypo-osmolality and hyponatremia Assessments Date Code Description Provider 08/21/2019 M25.562 Pain in left knee Laura Manriquez M.D. 08/21/2019 M25.462 Effusion, left knee Laura Manriquez M.D. 08/21/2019 M17.12 Unilateral primary osteoarthritis, Laura Manriquez M.D. left knee 08/19/2019 M19.011 Primary osteoarthritis, right Josafat Mcdonald MD shoulder 08/19/2019 S46.011D Strain of muscle(s) and tendon(s) of Josafat Mcdonald MD the rotator cuff of [facility] 05/17/2019 M17.12 Unilateral primary osteoarthritis, Laura Manriquez M.D. left knee 05/17/2019 M25.462 Effusion, left knee Laura Manriquez M.D. 05/17/2019 E87.1 Hypo-osmolality and hyponatremia Laura Manriquez M.D. 04/16/2019 R55 Syncope and collapse Evelin Zhang M.D. 04/16/2019 R55 Syncope and collapse Salima Andrade N.P. 04/16/2019 I36.1 Nonrheumatic tricuspid (valve) Salima Andrade N.P. insufficiency 04/16/2019 I35.0 Nonrheumatic aortic (valve) stenosis Salima Andrade, N.P. 04/16/2019 I25.10 Atherosclerotic heart disease of Salima Andrade, N.P. [place] coronary artery with 04/16/2019 E78.00 Pure hypercholesterolemia, Salima Andrade, N.P. unspecified 04/15/2019 M19.011 Primary osteoarthritis, right Josafat Mcdonald MD shoulder 04/15/2019 S46.011D Strain of muscle(s) and tendon(s) of Josafat Mcdonald MD the rotator cuff of [facility] 04/01/2019 R55 Syncope and collapse Lizzy Mendy, TREASURY ASSISTANT 04/01/2019 E87.1 Hypo-osmolality and hyponatremia Lizzy Mendy, TREASURY ASSISTANT 03/31/2019 R55 Syncope and collapse Geremias Carlson M.D., [facility] 03/31/2019 R55 Syncope and collapse Thelma Velasquez MD 03/31/2019 E87.1 Hypo-osmolality and hyponatremia Thelma Velasquez MD Plan of Treatment Future Appointment(s):11/27/2019 10:15 am - Laura Manriquez M.D. at [facility] at Tdwcxf2309/09/2019 3:30 pm - Josafat Mcdonald MD at [facility] at Tckutk0008/21/2019 - Laura Manriquez M.D.M25.562 Pain in left kneeFollow up:Follow up: 3 hcikqiU47.462 Effusion, left kneeM17.12 Unilateral primary osteoarthritis, left knee Functional Status Description No Information Available Mental Status Description No Information Available Referrals Description No Information Available
--- OUTSIDE RECORDS SUMMARY | 2019-09-19 11:37 | XMS REPORT | Continuity of Care Document ---
:1930 External Reference #:[id number] Author Name Tam Edge M.D. Address [address] [place] [address] Care Team Providers Name Role Phone Sofy Mejía MD - General Care Team Information [employer] Lawyer [phone] Practice Problems Active Problems Provider Date Dystrophy of anterior cornea Tam Edge M.D. Onset: 08/11/2014 Nonexudative age-related macular degeneration Tam Edge M.D. Onset: Central opacity of cornea Tam Edge M.D. Onset: 02/06/2014 Lens Replaced By Other Means Tam Edge M.D. Onset: 02/06/2014 Social History Type Date Description Comments Sex Unknown ETOH Use Rarely consumes alcohol Tobacco Use Start: Unknown End: Unknown Patient is a former smoker Smoking Status Reviewed: 08/08/19 Patient is a former smoker Allergies, Adverse Reactions, Alerts Active Allergies Reaction Severity Comments Date Morphine 02/06/2014 Coumadin 02/06/2014 Medications Active Medications SIG Qnty Indications Ordering Provider Date [facility] Eye [facility] Tam Edge 02/06/2014 Formula M.D. Capsules Clopidogrel Bisulfate Take One Tablet Unknown By Mouth Every 75mg Tablets Day Ipratropium [place] Two Sprays Unknown 0.06% Into Each Nostril Solution Up To Three Times A Day For Runny Nose Prednisone Juan José Mendoza MD 5mg Tablets Vitamin B 12 Unknown Injection Vitamin D Unknown 400Unit Tablets Magnesium Unknown 500mg Capsules Isosorbide Mononitrate Unknown Tablets Sertraline HCL Unknown Tablets Nitrostat Unknown 0.3mg Tablets Sub Toprol XL Unknown Tablets ER 24HR Nystatin Unknown Ointment Dulcolax Unknown 5mg Tablets Levoxyl Unknown Tablets Aspir-81 once per day po Unknown 81mg Tablets Lipitor Unknown Tablets Omeprazole Unknown Capsules Immunizations Description No Information Available Vital Signs Date Vital Result Comment 02/07/2019 11:00am Intraocular Pressure Right Eye 15 mmHg Intraocular Pressure Left Eye 15 mmHg 02/02/2018 11:15am Intraocular Pressure Right Eye 15 mmHg Intraocular Pressure Left Eye 15 mmHg Results Description No Information Available Procedures Date Code Description Status 08/09/2019 57194 Oct Retina Completed 08/09/2019 56223 Eye Exam Est Intermediate Completed Medical Devices Description No Information Available Encounters Description No Information Available Assessments Date Code Description Provider 08/09/2019 H35.3132 Nonexudative age-related macular Tam Edge M.D. 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 Plan of Treatment 08/09/2019 - Tam Edge M.D.H35.3132 Nonexudative age-related macular degeneration, bilateral, inH18.59 Other hereditary corneal dystrophiesFollow up: 6 mos full Functional Status Description No Information Available Mental Status Description No Information Available Referrals Description No Information Available
[2019-09-19 11:42] VITALS: BP 168/72
--- NOTE | 2019-09-19 11:59 | UC ---
Hip/Pelvis Pain - HPI Summary HPI Summary: 89-year-old woman comes in with chief complaint of left hip pain and left knee pain and low back pain. Patient doesn't know how long any of these pains been going on. Patient's most concerned about the left hip pain. She also gets injections the left knee. She has chronic low back pain. No complaint of any weakness or numbness. No specific trauma. - History Of Current Complaint Chief Complaint: UCLowerExtremity Stated Complaint: HIP PAIN Time Seen by Provider: 09/19/19 11:40 Pain Intensity: 7 - Allergies/Home Medications Allergies/Adverse Reactions: Allergies Allergy/AdvReac Type Severity Reaction Status Date / Time warfarin Allergy Severe Bleeding Verified 09/19/19 11:42 morphine AdvReac Intermediate GI Upset Verified 09/19/19 11:42 PMH/Surg Hx/FS Hx/Imm Hx Previously Healthy: Yes Endocrine History: Dyslipidemia Cardiovascular History: Hypertension - Surgical History Surgical History: Yes Surgery Procedure, Year, and Place: CARDIAC CATH WITH STENTS, BILATERAL HIP REPLACEMENT, colon resection - Family History Known Family History: Positive: Cardiac Disease Family History: FHx of breast CA - Social History Alcohol Use: None Substance Use Type: None Smoking Status (MU): Former Smoker Type: Cigarettes Amount Used/How Often: 1ppd Have You Smoked in the Last Year: No When Did the Patient Quit Smoking/Using Tobacco: 1995 - Immunization History Most Recent Influenza Vaccination: 2017 Most Recent Pneumonia Vaccination: up to date Review of Systems All Other Systems Reviewed And Are Negative: Yes Constitutional: Positive: Negative Skin: Positive: Negative Eyes: Positive: Negative ENT: Positive: Negative Respiratory: Positive: Negative Cardiovascular: Positive: Negative Gastrointestinal: Positive: Negative Motor: Positive: Negative Neurovascular: Positive: Negative Musculoskeletal: Positive: Other: - SEE HPI Neurological: Positive: Negative Psychological: Positive: Negative Is Patient Immunocompromised?: No Physical Exam Triage Information Reviewed: Yes Appearance: Well-Appearing, No Pain Distress, Well-Nourished Vital Signs: Initial Vital Signs Temp 98.4 F 09/19/19 11:34 Pulse 64 09/19/19 11:34 Resp 18 09/19/19 11:34 BP 168/72 09/19/19 11:34 Pulse Ox 97 09/19/19 11:34 Vital Signs Reviewed: Yes Eye Exam: Normal Eyes: Positive: Conjunctiva Clear Neck: Positive: Supple Respiratory: Positive: No respiratory distress Musculoskeletal: Positive: Other: - Patient is tender over the left greater trochanter and just posterior to it. Left knee is swollen and tender to palpation has normal range of motion and stable. Low back is tender to palpation. No loss of strength or sensation on exam. Neurological: Positive: Alert Psychological: Positive: Age Appropriate Behavior Skin Exam: Normal Hip Injury Course/Dx - Differential Dx/Diagnosis Provider Diagnosis: Left hip pain, Left knee pain Discharge ED - Sign-Out/Discharge Documenting (check all that apply): Patient Departure All imaging exams completed and their final reports reviewed: Yes - Discharge Plan Condition: Stable Disposition: HOME Patient Education Materials: Hip Pain (ED), Knee Pain (ED) Referrals: Sofy Mejía MD [Primary Care Provider] - Additional Instructions: FOLLOW UP WITH YOUR DOCTOR IF NOT COMPLETELY IMPROVED. GET REEVALUATED SOONER IF NOT IMPROVED OR WORSE OR ANY QUESTIONS OR CONCERNS. - Billing Disposition and Condition Condition: STABLE Disposition: Home
== END 2019-09-19 12:38 | disposition home or self-care (01) ==
LOC: UCEAST 10:18
DX: M25.562 Pain in left knee (principal); M25.552 Pain in left hip; M54.5 Low back pain; G89.29 Other chronic pain; I10 Essential (primary) hypertension; Z88.5 Allergy status to narcotic agent; Z88.8 Allergy status to other drugs, medicaments and biological substances; Z87.891 Personal history of nicotine dependence; Z95.5 Presence of coronary angioplasty implant and graft
CPT/HCPCS: 99212; G0463

== ENCOUNTER 2019-09-21 11:56 | Emergency (ER) | payer MEDICARE, BC ==
[2019-09-21] MEDS ORDERED: Tranexamic Acid 1,000 MG/10 ML SDV ONE (12:02)
--- NOTE | 2019-09-21 12:15 | ED ---
Throat Pain/Nasal Congestion - HPI Summary HPI Summary: This patient is a 89 year old F brought to [facility] by EMS accompanied by son and daughter with a chief complaint of nose bleed since 11:00 today 09/21/19. Symptoms aggravated by nothing. Symptoms alleviated by nothing. Pt reports taking blood thinner, Plavix. - History of Current Complaint Chief Complaint: EDEpistaxis Hx Obtained From: Patient Onset/Duration: Lasting Minutes, Still Present - Allergies/Home Medications Allergies/Adverse Reactions: Allergies Allergy/AdvReac Type Severity Reaction Status Date / Time warfarin Allergy Severe Bleeding Verified 09/19/19 11:42 morphine AdvReac Intermediate GI Upset Verified 09/19/19 11:42 PMH/Surg Hx/FS Hx/Imm Hx Endocrine/Hematology History: Reports: Hx Thyroid Disease Denies: Hx Diabetes Cardiovascular History: Reports: Hx Angina, Hx Cardiomegaly, Hx Coronary Artery Disease, Hx Hypercholesterolemia, Hx Hypertension, Hx Myocardial Infarction - [place] x2 1995, Hx Peripheral Vascular Disease Denies: Hx Congestive Heart Failure, Hx Pacemaker/ICD, Hx Valvular Heart Disease Comment Only: Other Cardiovascular Problems/Disorders - 2 stents Respiratory History: Reports: Other Respiratory Problems/Disorders - seasonal ALLERGIES, MED'S MADE HER DIZZY SO SHE DOESNT TAKE THEM Denies: Hx Asthma, Hx Chronic Obstructive Pulmonary Disease (COPD) GI History: Reports: Hx Gastroesophageal Reflux Disease, Hx Hiatal Hernia, Hx Obstructive Bowel - with colon resection History: Denies: Hx Dialysis, Hx Renal Disease Musculoskeletal History: Reports: Hx Arthritis, Other Musculoskeletal History - Bilat hip replacement Sensory History: Reports: Hx Contacts or Glasses, Hx Hearing Aid, Hx Hearing Problem, 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 Denies: Hx Cataracts, Hx Eye Injury, Hx Eye Prosthesis, Hx Glaucoma, Hx Legally Blind, Hx Macular Degeneration, Hx Vision Problem, Hx Deafness Opthamlomology History: Reports: Hx Contacts or Glasses, 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 Denies: Hx Cataracts, Hx Eye Injury, Hx Eye Prosthesis, Hx Glaucoma, Hx Legally Blind, Hx Macular Degeneration, Hx Vision Problem Neurological History: Reports: Hx Headaches, Other Neuro Impairments/Disorders - temporal arteritis 2017 Denies: Hx Dementia, Hx Seizures Psychiatric History: Reports: Hx Anxiety, Hx Depression Denies: Hx Panic Disorder - Cancer History Hx Chemotherapy: No Hx Radiation Therapy: No - Surgical History Surgery Procedure, Year, and Place: CARDIAC CATH WITH STENTS, BILATERAL HIP REPLACEMENT, colon resection Hx Anesthesia Reactions: No - Immunization History Date of Tetanus Vaccine: up to date Date of Influenza Vaccine: 2014 Infectious Disease History: No Infectious Disease History: Denies: Traveled Outside the [place] in Last 30 Days - Family History Known Family History: Positive: Cardiac Disease Family History: FHx of breast CA - Social History Alcohol Use: None Hx Substance Use: No Substance Use Type: Reports: None Hx Tobacco Use: Yes - QUIT 1995 Smoking Status (MU): Former Smoker Type: Cigarettes Amount Used/How Often: 1ppd Have You Smoked in the Last Year: No Review of Systems Negative: Fever Positive: Epistaxis All Other Systems Reviewed And Are Negative: Yes Physical Exam - Summary Physical Exam Summary: VITAL SIGNS: Reviewed. GENERAL: Patient is a well-developed and nourished FEMALE who is lying comfortable in the stretcher. Patient is not in any acute respiratory distress. HEAD AND FACE: No signs of trauma. No ecchymosis, hematomas or skull depressions. Positive bleeding in right nostril, blood clot removal, unable to visualize bleeding EYES: PERRLA, EOMI x 2, No injected conjunctiva, no nystagmus. EARS: Hearing grossly intact. Ear canals and tympanic membranes are within normal limits. MOUTH: Oropharynx within normal limits. NECK: Supple, trachea is midline, no adenopathy, no JVD, no carotid bruit, no c- spine tenderness, neck with full ROM. CHEST: Symmetric, no tenderness at palpation. LUNGS: Clear to auscultation bilaterally. No wheezing or crackles. CVS: Regular rate and rhythm, S1 and S2 present, no murmurs or gallops appreciated. ABDOMEN: Soft, non-tender. No signs of distention. No rebound, no guarding, and no masses palpated. Bowel sounds are normal. EXTREMITIES: FROM in all major joints, no edema, no cyanosis or clubbing. NEURO: Alert and oriented x 3. No acute neurological deficits. Speech is normal and follows commands. SKIN: Dry and warm. Triage Information Reviewed: Yes Vital Signs On Initial Exam: Initial Vitals Temp Pulse Resp BP Pulse Ox 98.3 F 64 16 143/83 99 09/21/19 12:08 09/21/19 12:08 09/21/19 12:09/21/19 12:09/21/19 12:08 Vital Signs Reviewed: Yes Procedures - Sedation Patient Received Moderate/Deep Sedation with Procedure: No Diagnostics - Vital Signs Vital Signs Temp Pulse Resp BP Pulse Ox 09/21/19 12:08 98.3 F 64 16 143/83 99 - Laboratory Lab Statement: Any lab studies that have been ordered have been reviewed, and results considered in the medical decision making process. EENT Course/Dx - Course Assessment/Plan: This patient is a 89-year-old female who presents to the emergency department with a chief complaint of epistaxis. Past medical history : Coronary disease, depression, hypertension, hypothyroidism, urinary retention , syncope, hyponatremia, headache. Patient is taking aspirin and Plavix. In the physical exam the patient is actively bleeding of the right nostril. I removed a blood clot from the right nostril and was unable to visualize the bleeding area. I applied TXA and Surgicel and since then the bleeding stopped. Well observe the patient for a couple hours and to make sure there is no further bleeding. The patient will be discharged home and follow up with the primary care physician. The blood pressure is controlled. Blood pressure is 143 /83. Patient is hemodynamically stable alert and oriented 3. I discussed all the findings and test results with the patient. Patient was instructed to return to the emergency room immediately if any of the symptoms return worsens. Plan of care was discussed with the patient who understands and agrees. All questions were answered at patient satisfaction. There were no further complaints or concerns. Lung exam before discharge: CTA B/L. Good air exchange. No wheezing or crackles heard. CVS: S1 and S2 present. No murmurs appreciated. Patient is alert and oriented x 3. Patient is hemodynamically stable. Patient will be discharged home with follow up PCP in the next 2-3 days - Diagnoses Provider Diagnoses: Epistaxis Discharge ED - Sign-Out/Discharge Documenting (check all that apply): Patient Departure - discharge - Discharge Plan Condition: Stable Disposition: HOME Patient Education Materials: Nosebleed (ED) Referrals: Sofy Mejía MD [Primary Care Provider] - Additional Instructions: F/U with PCP in 2-3 days - Billing Disposition and Condition Condition: STABLE Disposition: Home - Attestation Statements Document Initiated by Scribe: Yes Documenting Scribe: Jena Schaefer Provider For Whom Scribe is Documenting (Include Credential): Dr. Keanu Frankel MD Scribe Attestation: I, Jena Schaefer, scribed for Dr. Keanu Frankel MD on 09/22/19 at 1857. Scribe Documentation Reviewed: Yes Provider Attestation: The documentation as recorded by the scribe, Jena Schaefer accurately reflects the service I personally performed and the decisions made by me, Dr. Keanu Frankel MD Status of Scribe Document: Viewed
[2019-09-21 15:33] VITALS: BP 163/76
== END 2019-09-21 15:25 | disposition home or self-care (01) ==
LOC: ED 11:56
DX: R04.0 Epistaxis (principal); E07.9 Disorder of thyroid, unspecified; I25.10 Atherosclerotic heart disease of native coronary artery without angina pectoris; E78.00 Pure hypercholesterolemia, unspecified; I10 Essential (primary) hypertension; I25.2 Old myocardial infarction; K21.9 Gastro-esophageal reflux disease without esophagitis; F41.9 Anxiety disorder, unspecified; F32.9 Major depressive disorder, single episode, unspecified; Z96.643 Presence of artificial hip joint, bilateral; Z95.5 Presence of coronary angioplasty implant and graft; Z87.891 Personal history of nicotine dependence; Z88.5 Allergy status to narcotic agent; Z88.8 Allergy status to other drugs, medicaments and biological substances; Z79.01 Long term (current) use of anticoagulants; Z79.82 Long term (current) use of aspirin
CPT/HCPCS: 99283